=== PATIENT | male | born 1940 | race Caucasian/White ===

== ENCOUNTER 2016-06-06 10:05 | Inpatient (IN) | payer MEDICARE, OTHER ==
[~2016-06-06] VITALS: Ht 165.1 cm; Wt 83.9 kg
[~2016-06-06 10:05] MED LIST: AMLO-147 PO; APR50 PO; ASPI-664 PO; ATOR80TA75 PO; BUDE6HFA INHALATION; CARV6.2579 PO; CLOP75TA4 PO; DUTA0.5C PO; FAMO20TA18 PO; FURO40TA4 PO; ISOS60TA PO; NIT4 SL; TAMS-14 PO; TIOT18CA INHALATION
--- NOTE | 2016-06-06 10:37 | RADRPT ---
PROCEDURE: XR Chest. CLINICAL INDICATION: Shortness of breath. TECHNIQUE: Single frontal view. COMPARISON: 04/19/2016. FINDINGS: There is mild interstitial pulmonary disease consistent with pulmonary edema, slightly worse than se en previously. The lungs are otherwise clear. The heart is enlarged. There is a new small right pleural effusion. There is no left pleural effusion. There is no pneumothorax. IMPRESSION: 1. Worse pulmonary edema. 2. Cardiomegaly. 3. New small right pleural effusion. RPTAT: QQ .Mikey Leal MD, MD Date Time Electronically viewed and signed by .Mikey Leal MD, MD on 06/06/2016 10:37 .R/
[2016-06-06] MEDS ORDERED: ALBUTEROL 0.5% (NEB) 2.5 MG/0.5 ML AMP INH STA (10:40)
[2016-06-06] MEDS ORDERED: LORAZEPAM 2 MG INJ IV ONE (11:00)
[2016-06-06] MEDS ORDERED: NITROGLYCERIN (SL) 0.4 MG TAB SL ONE (11:00)
[2016-06-06 11:15] LABS: ALBUMIN 3.5 g/dl (3.3-4.9)
[2016-06-06 11:17] LABS: BASOPHIL # 0.1 10^3/ul (0.0-0.1); BASOPHILS % 0.6 % (0.0-2.0); HEMATOCRIT 39.6 % (42.0-52.0); HEMOGLOBIN 12.4 g/dl (14.0-18.0); LYMPHOCYTES # 1.3 10^3/ul (0.8-2.9); LYMPHOCYTES % 10.7 % (15.0-51.0); MEAN CORPUSCULAR HEMOGLOBIN 26.4 pg (29.0-33.0); MEAN CORPUSCULAR HGB CONC 31.4 g/dl (32.0-37.0); MEAN CORPUSCULAR VOLUME 84.1 fl (82.0-101.0); MEAN PLATELET VOLUME 10.6 fl (7.4-10.4); MONOCYTE # 1.2 10^3/ul (0.3-0.9); MONOCYTES % 9.9 % (0.0-11.0); NEUTROPHIL # 9.7 10^3/ul (1.6-7.5); NEUTROPHILS % 78.8 % (39.0-77.0); PLATELET COUNT 176 10^3/UL (140-440); RED BLOOD COUNT 4.71 10^6/ul (4.70-6.10); RED CELL DISTRIBUTION WIDTH 22.1 % (11.5-14.5); UNCORRECTED WBC 12.3 10^3/ul (4.8-10.8); WHITE BLOOD COUNT 12.3 10^3/ul (4.8-10.8)
[2016-06-06 11:18] LABS: BILIRUBIN,INDIRECT 1.3 mg/dl (0-1.1); BILIRUBIN,TOTAL 1.3 mg/dl (0.2-1.3); CREATININE 1.92 mg/dl (0.61-1.24); TOTAL PROTEIN 6.9 g/dl (6.1-8.1)
[2016-06-06 11:19] LABS: CALCIUM 9.1 mg/dl (8.4-10.2)
[2016-06-06 11:20] LABS: CONDITION 1; LH ANALYZER COMMENTS 1
[2016-06-06 11:26] LABS: ALBUMIN/GLOBULIN RATIO 1.02; POTASSIUM 6.2 mmol/L (3.5-5.1)
[2016-06-06] MEDS ORDERED: DEXTROSE 50% 50 ML SYRINGE IV STA (11:26)
[2016-06-06] MEDS ORDERED: FUROSEMIDE 40 MG INJ IV ONE (11:30)
[2016-06-06] MEDS ORDERED: INSULIN REGULAR, HUMAN 100 UNIT/1 ML 3ML VIAL IV ONE (11:30)
[2016-06-06] MEDS ORDERED: FURO-110 PO (11:32)
[2016-06-06] MEDS ORDERED: ISOS30TA5 PO (11:33)
[2016-06-06] MEDS ORDERED: METO50TA16 PO (11:34)
[2016-06-06 11:36] LABS: TROPONIN-I 1.93 ng/ml (0.00-0.12)
[2016-06-06] MEDS ORDERED: LIDO700A6 TP (11:40)
[2016-06-06] MEDS ORDERED: APIX2.5T PO (11:42)
[2016-06-06] MEDS ORDERED: ADV25050 INHALATION (11:42)
--- NOTE | 2016-06-06 11:47 | ERA ---
ER Documentation Chief Complaint Date/Time DATE: 06/06/16 TIME: 11:40 Chief Complaint sob starting 2 days; denies cp at this time; HPI 75-year-old man brought in by EMS from home for generalized discomfort and weakness beginning this morning. He does have a history of congestive heart failure although states he does not feel like he is decompensated at this time, he states he has been using his medications as prescribed and has avoided a high salt diet. He describes palpitations and generalized weakness, denies chest pain or shortness of breath, no fevers or chills, no cough, no recent calf or leg swelling. Patient was transported here by EMS without further complications. ROS All systems reviewed and are negative except as per history of present illness. Medications Home Meds Active Scripts Tamsulosin Hcl* (Flomax*) 0.4 Mg Cap.er.24h, 0.4 MG PO HS for 30 Days, CAP Prov:ELIJAH BALDWIN. 12/25/15 Reported Medications Apixaban* (Eliquis*) 2.5 Mg Tablet, 2.5 MG PO BID, TAB 06/06/16 Salmeterol Xinaf/Fluticasone* (Advair*) 250-50 Diskus Inhaler, 1 INH INHALATION BID, #1 INHALER 06/06/16 Lidocaine (Lidoderm) 1 Each Adh..patch, 1 EACH TP DAILY 06/06/16 Metoprolol Succinate* (Toprol XL*) 50 Mg Tab.er.24h, 50 MG PO BID, #30 TAB 06/06/16 Isosorbide Mononitrate* (Isosorbide Mononitrate*) 30 Mg Tab.er.24h, 30 MG PO DAILY, TAB 06/06/16 Furosemide* (Lasix*) 20 Mg Tablet, 20 MG PO DAILY, TAB 06/06/16 Budesonide-Formoterol Fumarate* (Symbicort*) 160-4.5 Hfa.aer.ad, 2 PUFF INHALATION BID, #1 EACH 04/04/16 Famotidine* (Famotidine*) 20 Mg Tablet, 20 MG PO DAILY, #30 TAB 04/04/16 Nitroglycerin* (Nitrostat*) 0.4 Mg Tab.subl, 0.4 MG SL Q5MIN Y for CHEST PAIN, BOTTLE 01/20/16 Dutasteride* (Avodart*) 0.5 Mg Capsule, 0.5 MG PO DAILY, CAP 01/20/16 Tiotropium Buckley* (Spiriva*) 18 Mcg Cap.w.dev, 1 CAP INHALATION DAILY, #30 CAP 01/19/16 Carvedilol* (Carvedilol*) 6.25 Mg Tablet, 6.25 MG PO BID, #60 TAB 01/19/16 Amlodipine Besylate* (Amlodipine Besylate*) 10 Mg Tablet, 10 MG PO DAILY, #30 TAB 01/19/16 Atorvastatin* (Atorvastatin*) 80 Mg Tablet, 80 MG PO QHS, #30 TAB 12/20/15 Clopidogrel Bisulfate* (Clopidogrel Bisulfate*) 75 Mg Tablet, 75 MG PO DAILY, # 30 TAB 12/20/15 Discontinued Reported Medications Hydralazine Hcl* (Hydralazine Hcl*) 50 Mg Tab, 50 MG PO QID, #120 TAB 01/19/16 Aspirin* (Aspirin* EC) 81 Mg Tablet.dr, 81 MG PO DAILY, TAB 12/20/15 Isosorbide Mononitrate* (Isosorbide Mononitrate*) 60 Mg Tab.er.24h, 60 MG PO DAILY, TAB 12/20/15 Furosemide* (Furosemide*) 40 Mg Tablet, 40 MG PO DAILY, TAB 12/20/15 Allergies Allergies: Coded Allergies: No Known Allergy (Unverified , 06/06/16) PMhx/Soc Congestive heart failure with an ejection fraction of 25%, history of stroke, paroxysmal atrial fibrillation, coronary artery disease post-PCI, chronic dysphagia, hypertension, congestive heart failure with multiple previous exacerbations, previous stroke, coronary artery disease, chronic renal insufficiency, BPH, chronic obstructive pulmonary disease, previous left bundle branch block on EKG History of Surgery: Yes (PCI w/ stenting, L shoulder sx) Anesthesia Reaction: No Hx Neurological Disorder: Yes (RT SIDED WEAKNESS STROKE 2016) Hx Respiratory Disorders: Yes (COPD) Hx Cardiac Disorders: Yes (CAD,CHF, CHRONIC A FIB) Hx Psychiatric Problems: No Hx Alcohol Use: No Hx Substance Use: No Hx Tobacco Use: No Smoking Status: Former smoker FmHx Family History: No diabetes Physical Exam Vitals Vital Signs Date Time Temp Pulse Resp B/P Pulse Ox O2 Delivery O2 Flow Rate FiO2 06/06/16 11:11 83 24 97 Nasal Cannula 4.0 06/06/16 11:11 4.0 06/06/16 10:30 Nasal Cannula 4 06/06/16 10:30 Nasal Cannula 4.0 06/06/16 10: 98.9 87 24 153/86 90 Physical Exam GENERAL: Well-developed, well-nourished, well-hydrated, in no apparent distress , looks nontoxic in appearance HEENT: Moist mucous membranes, pink conjunctiva, no cervical spine tenderness or step-off deformities, no goiter, no jaundice or icterus, extraocular movements intact without pain. No submandibular induration, and no pharyngeal erythema NEURO: Alert and oriented 3, cranial nerves II through XII intact bilaterally, pupils equal round reactive to light, no focal deficits or facial asymmetry, sensation intact distally Strength 5/5 in upper and lower extremities bilaterally CARDIAC: Bibasilar crackles no wheezing or stridor LUNGS: Clear bilaterally no wheezing crackles or stridor ABDOMEN: Soft nontender, no guarding, no rigidity, no rebound, no psoas sign no obturator sign. Normoactive bowel sounds SKIN: Warm and dry to touch, no abrasions, contusions, or hematomas, no lacerations, no ecchymosis, no target lesions, and without ulcers EXTREMITIES: No clubbing cyanosis or edema, calves are bilaterally symmetrical, no Homans sign, no popliteal cord sign. Distal pulses equal and bilateral PSYCH: Normal affect without agitation or irritability Result Diagram: 06/06/16 1030 06/06/16 1030 Results 24 hrs Laboratory Tests Test 06/06/16 10:30 Alanine Aminotransferase (ALT/SGPT) 92IU/L Albumin 3.5g/dl Albumin/Globulin Ratio 1.02 Alkaline Phosphatase 137IU/L Anion Gap 25 Aspartate Amino Transf (AST/SGOT) 88IU/L B-Type Natriuretic Peptide 86357IU/ML Basophils # 0.110^3/ul Basophils % 0.6% Blood Morphology Comment Blood Urea Nitrogen 67mg/dl Calcium Level 9.1mg/dl Carbon Dioxide Level 18mmol/L Chloride Level 101mmol/L Creatinine 1.92mg/dl Direct Bilirubin 0.00mg/dl Eosinophils # 0.010^3/ul Eosinophils % 0.0% Globulin 3.40g/dl Glucose Level 133mg/dl Hematocrit 39.6% Hemoglobin 12.4g/dl Indirect Bilirubin 1.3mg/dl Lipase 41U/L Lymphocytes # 1.310^3/ul Lymphocytes % 10.7% Mean Corpuscular Hemoglobin 26.4pg Mean Corpuscular Hemoglobin Concent 31.4g/dl Mean Corpuscular Volume 84.1fl Mean Platelet Volume 10.6fl Monocytes # 1.210^3/ul Monocytes % 9.9% Neutrophils # 9.710^3/ul Neutrophils % 78.8% Nucleated Red Blood Cells # 0.010^3/ul Nucleated Red Blood Cells % 0.0/100WBC Platelet Count 88392^3/UL Potassium Level 6.2mmol/L Red Blood Count 4.7110^6/ul Red Cell Distribution Width 22.1% Sodium Level 138mmol/L Total Bilirubin 1.3mg/dl Total Protein 6.9g/dl Troponin I 1.930ng/ml White Blood Count 12.310^3/ul Current Medications Medications (Trade) Dose Ordered Sig/Jong Route PRN Reason Start Time Stop Time Status Last Admin Dose Admin Albuterol (Proventil 0.5% (Neb)) 5 mg ONCE STAT INH 06/06/16 10:40 06/06/16 10:43 DC 06/06/16 11:00 Nitroglycerin (Nitroglycerin (Sl Tab) 0.4 Mg) 1 tab ONCE ONCE SL 06/06/16 11:00 06/06/16 11:01 DC Lorazepam (Ativan) 0.5 mg ONCE ONCE IV 06/06/16 11:00 06/06/16 11:01 DC 06/06/16 11:22 Furosemide (Lasix) 60 mg ONCE ONCE IV 06/06/16 11:30 06/06/16 11:31 DC 06/06/16 12:01 Dextrose (D50w Syringe) 50 ml NOW STAT IV 06/06/16 11:26 06/06/16 11:28 DC 06/06/16 12:02 Insulin Human Regular (Humulin R) 8 unit ONCE ONCE IV 06/06/16 11:30 06/06/16 11:31 DC 06/06/16 12:01 Procedures/[facility] IV line was established patient was placed on pot puller rhythm strip revealed a wide-complex rhythm at about 80 bpm. Patient was afebrile. Patient appeared tachypneic and dyspneic For shortness of breath I administered albuterol 5 mg via nebulizer and treated the patient with nitroglycerin 0.4 mg sublingual, and lorazepam 0.5 mg IV for anxiety with good effect. EKG performed, read by me revealed a normal sinus rhythm 84 bpm, normal axis, left bundle branch block with [address] depression in V6 concerning for acute ischemia. Patient has no complaints of chest pain and denies shortness of breath. One view chest x-ray performed, read by me revealed cardiomegaly and bilateral vascular congestion this may be slightly worse compared to previous x-ray although not much has changed. He has screws in the left proximal humerus no acute infiltrates noted. CBC was unremarkable, electrolytes revealed hyperkalemia 6.2 and worsening renal function with a BUN/creatinine of 67/1.9. I treated the patient with furosemide 60 mg IV and aspirin 325 mg p.o. for cardioprotective measures. For further treatment of hyperkalemia I treated him with dextrose 25 g IV and regular insulin 8 units IV. Troponin was positive at 1.9. BNP was also elevated at about 39,000 Critical Care: Time: 40 minutes, this was time separate from other procedures. Treatments/Evaluations: Close monitoring and treatment of unstable vital signs, cardiorespiratory, and neurologic status, while maintaining tight balance of fluid, respiratory, and cardiac interventions. Patient will be admitted to telemetry setting for continued medical management and cardiology consultation. Departure Diagnosis: Primary Impression: Acute hyperkalemia Additional Impressions: Non-STEMI (non-ST elevated myocardial infarction) Acute renal failure Qualified Code: N17.0 - Acute renal failure with tubular necrosis CHF (congestive heart failure) Qualified Code: I50.21 - Acute systolic congestive heart failure Condition: Serious CAREY NEUMANN MD Jun 06, 2016 11:47
[2016-06-06] MEDS ORDERED: ASPIRIN 300 MG SUPP PR ONE (12:00)
[2016-06-06] MEDS ORDERED: ASPIRIN 325 MG TAB PO ONE (12:00)
[2016-06-06 13:00] VITALS: PULSE 86
[2016-06-06 13:08] VITALS: BP 178/87; PULSE 85; RESP 22
[2016-06-06 13:25] VITALS: Ht 165.1 cm; Wt 83.9 kg
[2016-06-06] MEDS ORDERED: hydrALAzine 20 MG INJ IV PRN (13:30)
[2016-06-06] MEDS ORDERED: NA PHOSPHATE/BIPHOS 133 ML ENEMA PR PRN (13:30)
[2016-06-06] MEDS ORDERED: ALBUTEROL/IPRATROPIUM (NEB) 3 ML AMP HHN PRN (13:30)
[2016-06-06] MEDS ORDERED: ONDANSETRON 4 MG INJ IV PRN (13:30)
[2016-06-06] MEDS ORDERED: ACETAMINOPHEN 325 MG TAB PO PRN (13:30)
[2016-06-06] MEDS ORDERED: LORAZEPAM 2 MG INJ IV PRN (13:30)
[2016-06-06] MEDS ORDERED: MAGNESIUM HYDROXIDE 30ML CUP PO PRN (13:30)
[2016-06-06] MEDS ORDERED: NACL 0.9% 3 ML SYG IV SCH (13:30)
[2016-06-06] MEDS ORDERED: NA POLYST SULFON 15 GM/60 ML BTL PR ONE (13:30)
[2016-06-06] MEDS ORDERED: HYDROCODONE/APAP (5/325) TAB PO PRN (13:30)
[2016-06-06] MEDS ORDERED: DOCUSATE SODIUM 100 MG CAP PO PRN (13:30)
[2016-06-06] MEDS ORDERED: NITROGLYCERIN (SL) 0.4 MG TAB SL PRN (13:30)
[2016-06-06] MEDS ORDERED: morphine 2 MG INJ IV PRN (13:30)
[2016-06-06 14:48] LABS: INR 1.5; PROTIME 18.2 Sec (12.2-14.2); PT RATIO 1.4
[2016-06-06 14:49] LABS: PARTIAL THROMBOPLASTIN TIME 31.7 Sec (25.0-35.0)
[2016-06-06 15:03] LABS: CK-MB 6.06 ng/ml (0.0-2.4)
--- NOTE | 2016-06-06 15:23 | HP ---
DATE OF ADMISSION: 06/06/2016 CHIEF COMPLAINT: Palpitations and weakness. HISTORY OF PRESENT ILLNESS: A 75-year-old male with past medical history based on records of acute respiratory failure in the past, CHF, systolic and diastolic dysfunction, chronic kidney disease, pr ior V-tach, pulmonary hypertension, COPD, mild to moderate aortic stenosis, essential hypertension, iron deficiency anemia, BPH, dysphasia and deconditioning, noncompliance with medication from the ct st, AFib, prior stroke, coronary artery disease and low platelets. He was brought in today by patricio edics because of some complaints of palpitations, most of the information obtained from the ER docum entation. The patient is presently lethargic and unable to provide a full HPI or review of systems. Apparently he was also having some shortness of breath and the family became concerned and decide d to call EMS. When he came in today, he was found with elevated troponin of 1.9 and his potassium was also elevated at 6.2. He was given a DuoNeb treatment and Lasix treatment in the ER and also as pirin as well. The patient was last here at our hospital from 04/04/2016 to 04/15/2016 for respirat ory failure and CHF exacerbation at that time. He also spent about 12 days in rehabilitation from 06/16/2015 to 04/27/2016 for recovery. PAST MEDICAL HISTORY: As stated above. ALLERGIES: NO KNOWN DRUG ALLERGIES. HOME MEDICATIONS: 1. Based on the medical reconciliation list, he is on Flomax 0.4 mg at bedtime. 2. Spiriva 18 mcg inhaled daily. 3. Eliquis 2.5 mg b.i.d. 4. Plavix 75 mg daily. 5. Amlodipine 10 mg daily. 6. Atorvastatin 80 mg at bedtime. 7. Coreg 6.25 mg b.i.d. 8. Imdur 30 mg daily. 9. Toprol-XL 50 mg b.i.d. 10. Nitroglycerin sublingual every 5 minutes p.r.n. 11. Lasix 20 mg p.o. daily. 12. Symbicort 116/4.5 two puffs inhaled b.i.d. 13. Advair 250/50 inhaled b.i.d. 14. Famotidine 20 mg daily. 15. Lidoderm daily. 16. Avodart 0.5 mg daily. PAST SURGICAL HISTORY: Apparently he has had PCI with stenting in the past and left shoulder surger y in the past, based on records. FAMILY HISTORY: Positive for hypertension, heart disease. SOCIAL HISTORY: He has a history of smoking possibly still smoking cigarettes. No alcohol use or I V drug abuse. PHYSICAL EXAMINATION: VITAL SIGNS: T-max 98.9, pulse 83, respirations 20 to 24, blood pressure 143/86, saturating at 90% to 97% on 4 liters nasal cannula. GENERAL: The patient is lying in bed, somewhat altered, but otherwise no acute distress. HEENT: Pupils equal, round, react to light. Extraocular muscles intact. NECK: Supple, no thyromegaly. LUNGS: Mild crackles heard at the bases bilaterally. CARDIOVASCULAR: S1, S2 heard. No rubs or gallops. ABDOMEN: Soft, nontender, nondistended. Normal bowel sounds. No rebound or guarding. MUSCULOSKELETAL: No lower extremity edema bilaterally. NEUROLOGIC: No signs of any focal deficits. LABORATORIES: WBC 12.3, hemoglobin 12.4, hematocrit 39.6, platelets 176. Sodium 138, potassium 6.2 , chloride 101, CO2 18, BUN 67, creatinine 1.9, glucose 133. AST is a little high at 88, ALT is a l ittle high at 92, alkaline phosphatase is high at 137. First troponin is 1.93. BNP is 39,300. Lip ase is normal. IMAGING: There was a chest x-ray performed today that shows worsening pulmonary edema, cardiomegaly , new small right pleural effusion. ASSESSMENT AND PLAN: A 75-year-old male coming in with weakness, palpitations, shortness of breath with signs of hyperkalemia, renal insufficiency and elevated troponins and failure exacerbations. 1. Weakness, palpitations. Again, secondary most likely to congestive heart failure with possible non ST segment elevation myocardial infarction component, so again we will admit him to telemetry fl oor. We will trend his troponins. He is on aspirin and Plavix now as well as Eliquis. We will get a cardiology consult. We will put him on IV Lasix, keep the head of the bed greater than 30 degree s. Monitor ins and outs. We will treat her CHF exacerbation as well. It is unclear if his troponi n elevation is due to troponin leak from his renal insufficiency or from actual non-ST segment eleva tion myocardial infarction, so in any event, we are going to him out. He is going to be on aspirin, morphine, oxygen, and nitrates as well. Continue beta kehinde for now. He is also on hydralazine p.r.n. Continue higher dose cholesterol and check a TSH, A1c and lipid panel as well. 2. Congestive heart failure exacerbation. Again, he is going to be on Lasix and monitor ins and ou ts and low-dose beta kehinde. Get cardiology consult. Consider checking an echocardiogram again 3. Rxyrp-he-houhedv renal insufficiency, baseline creatinine appears to be about 1.5, today is 1.9. He also has an elevated potassium. We will get a renal consult. He is going to be on Lasix as we ll. 4. Hyperkalemia. Again, there were no significant EKG changes other than the left bundle branch bl ock, no peaked T waves. I am going to rule out for acute coronary syndrome and consider Kayexalate as well. Again, he is going to be on Lasix. 5. Atrial fibrillation. Going to continue Eliquis. 6. History of prior stroke. He is on aspirin and Plavix. Continue that. 7. Coronary artery disease. Again, he is on aspirin and Plavix. Continue. 8. Pulmonary hypertension. Continue to monitor for now. He is on DuoNeb p.r.n. Continue current cardiac medicines. 9. History of aortic stenosis, again will get echocardiogram. Follow up cardiology recommendations as well. 10. Prostate issues. Hold Flomax for now. 11. Lethargy unclear. He has had a history of encephalopathy in the past. Consider head CT, hold his Lidoderm patch as well. Be cautious with his pain control medications. 12. Gastrointestinal prophylaxis, H2 kehinde. 13. Deep venous thrombosis prophylaxis. He is on Eliquis for his atrial fibrillation. Will get PT , OT consults as well and speech therapy consult. Dictated By: DENTON HU Conf#: [id number] DID#: [id number]
[2016-06-06 15:26] LABS: TROPONIN-I 1.71 ng/ml (0.00-0.12)
[2016-06-06 16:06] VITALS: PULSE 81
[2016-06-06 16:13] VITALS: BP 165/45; RESP 18
--- NOTE | 2016-06-06 18:53 | CONS ---
DATE OF ADMISSION: 06/06/2016 DATE OF CONSULTATION: 06/06/2016 TYPE OF CONSULTATION: Cardiology. REFERRING PHYSICIAN: Dr. Denton Field REASON FOR CONSULTATION: Abnormal troponin. CHIEF COMPLAINT: Shortness of breath, chest pain. HISTORY OF PRESENT ILLNESS: ____ from the patient, discussion with his son, discussion with the sta ff. ____ reveals the old ____. The patient ____ was admitted to the hospitalist. A 75-year-old ge ntleman with multiple complicated medical history who has had increasing shortness of breath and cam e to emergency room. The patient also ____ chest pain anteriorly 3 days ago. In the emergency room , was noted to have severe hyperkalemia, potassium of 6.2. His troponin was also 1.93. His chest p ain has resolved at this point. Shortness of breath is stable at his baseline now. PAST MEDICAL HISTORY: History of coronary artery disease, status post multiple MIs, status multiple PCI of right coronary artery, history of paroxysmal atrial fibrillation, history of CVA, history of severe ischemic cardiomyopathy, history of aortic stenosis, history of COPD, history of renal insuf ficiency and possible renal artery stenosis, history of multiple myocardial infarctions, history of dyslipidemia, history of diabetes. SURGICAL HISTORY: Multiple PCI. FAMILY HISTORY: Positive for hypertension. SOCIAL HISTORY: The patient has been a chronic smoker for many years. He continues to smoke interm ittently. ALLERGIES: NO KNOWN DRUG ALLERGIES. MEDICATIONS: As per medication reconciliation, personally reviewed. PHYSICAL EXAMINATION: VITAL SIGNS: Temperature 97.8, heart rate of 85, blood pressure 178/87, respiratory rate of 85. HEENT: Normocephalic, atraumatic. Thin, cachectic gentleman. Pupils are equal. CARDIOVASCULAR: Regular rate and rhythm. Systolic ejection murmur. PULMONARY: With mild rhonchi, diffuse. GASTROINTESTINAL: Soft, nontender. EXTREMITIES: With no significant lower extremity edema. NEUROLOGIC: Awake and alert, responds appropriately. PSYCHIATRIC: Appears to be calm. LABORATORY: WBC of 12.3, hemoglobin 12.4, platelet 176. Sodium 138, potassium 6.2, BUN of 67, crea tinine 1.92, glucose 133. Troponin of 1.9. Total CK of 95 with MB fraction of 6. ProBNP of 39,300 . EKG was personally reviewed, showed normal sinus rhythm with left bundle branch block. Chest x-ray was personally reviewed, which shows worsening pulmonary edema, new small right pleural effusion. ASSESSMENT AND PLAN: 1. Jmz-SA-dyyebflsq myocardial infarction. 2. Acute renal failure on chronic kidney disease. 3. Hyperkalemia, rule out obstruction. 4. History of coronary artery disease, status multiple myocardial infarctions in the past. 5. History of multiple percutaneous coronary interventions. 6. Dyslipidemia. 7. Hypertension. 8. Diabetes. 9. Chronic obstructive pulmonary disease. 10. History of benign prostatic hypertrophy. 11. History of cerebrovascular accident. 12. History of paroxysmal atrial fibrillation. RECOMMENDATIONS: Currently, patient is in sinus. I would discontinue the Eliquis. We will continu e with aspirin and Plavix for now. I will continue the patient on Coreg. No JOSE MARIA inhibitor will be given, given his renal failure. Place a Zuniga catheter for I's and O's to evaluate for obstruction. I have asked the nurses to contact Dr. Ojeda, who has known the patient very well and previously treated him. Dr. Kc and staff ____ will be contacted ____ nephrology to evaluate the patient. For now, we will optimize him and will decide further ischemic workup once his renal function impr oves. Thank you for this referral. We will continue to follow along with you. Dictated By: LUCÍA MARQUES/SANCHEZ Conf#: [id number] DID#: [id number] CC: DENTON FIELD;*Kameron*
--- NOTE | 2016-06-06 19:00 | CONS ---
DATE OF ADMISSION: 06/06/2016 DATE OF CONSULTATION: 06/06/2016 REFERRING PHYSICIAN: Dr. Jan Ceja TYPE OF CONSULTATION: Nephrology. REASON FOR CONSULTATION: Acute versus acute on chronic renal failure secondary to cardiorenal syndr ome. HISTORY OF PRESENT ILLNESS: This is a 75-year-old male with a past medical history of CAD, CHF, chr onic atrial fibrillation, COPD, BPH, history of previous stent placement for coronary artery disease . The patient was last admitted in April 2016 for CHF exacerbation and at that time, he had acut e on chronic renal failure. The patient had a creatinine up to 2.62 which improved with IV Lasix di uresis to 1.1 at the time of the discharge. He discharged home and he was subsequently seen in the emergency room and had a creatinine bump up to 1.2. Today he presented with a complaint of shortness of breath, chest pain. He gets admitted for CHF exacerbation. He already received IV Lasix in the emergency room. He came in with a creatinine of 1.9. His potassium was 6.2. Patient has already been treated for hyperkalemia in the emergency room and he gets admitted to the telemetry floor for further workup. REVIEW OF SYSTEMS: Positive for chest pain, shortness of breath. Other 12-point review of systems has been obtained and is negative except what is mentioned in the history of present illness. PAST MEDICAL HISTORY: Notable for hypertension, hyperlipidemia, history of coronary artery disease, status post previous stent placement, history of systolic and diastolic heart failure, BPH. PAST SURGICAL HISTORY: History of a previous stent placement, history of left shoulder surgery. SOCIAL HISTORY: No smoking, alcohol or recreational drug use. PHYSICAL EXAMINATION: VITAL SIGNS: Temperature 97.5, heart rate 73, respiration 20, blood pressure 178/87, saturation is 100% on 2 liters nasal cannula. GENERAL: Awake, in moderate distress due to shortness of breath. HEENT: Normal. NECK: Jugular venous distention up to the neck and jaw. LUNGS: Bibasilar crackles up to the mid lung zone. HEART: S1, S2, tachycardia. No murmur. ABDOMEN: Soft, nontender, nondistended. EXTREMITIES: 1 to 2+ pitting edema. NEUROLOGICAL: Nonfocal, intact. PSYCHIATRIC: Appropriate affect and mood. LABORATORY DATA/DIAGNOSTIC IMAGING: WBC 12.3, hemoglobin 12.4, platelet count 176. Sodium 138, potassium 6.2, chloride 101, bicarbonate 18, BUN 67, creatinine 1.9, glucose 133, calcium 9.1, total bilirubin 1.3. LFTs are slightly eleva inder. Troponin 1.930, BNP 39,300. PT 18.2, PTT 31.7, INR 1.5. Chest x-ray shows worsening congestive heart failure with cardiomegaly. IMPRESSION: This is a 75-year-old male with: 1. Nonoliguric acute kidney injury on top of chronic kidney disease stage III secondary to a possib le cardiorenal syndrome and hemodynamics. 2. History of chronic kidney disease stage III secondary to cardiorenal syndrome and hypertensive n ephrosclerosis. 3. History of hypertension. 4. History of coronary artery disease, status post previous stent placement. 5. Acute systolic and diastolic heart failure, decompensated. 6. Hyperlipidemia. 7. History of former smoking. 8. History of chronic obstructive pulmonary disease. PLAN: Thank you, Dr. Ceja, for this consultation. 1. The patient already received Lasix 60 mg IV x1 in the emergency room and he is ordered to have L asix 40 mg IV daily. I will continue the current dose of Lasix. Avoid any JOSE MARIA inhibitors or ARB at this point due to the rise in creatinine. 2. Continue the other cardiac medications of heparin for DVT prophylaxis. Patient is currently see n in the telemetry floor and he will be followed up along with his course in the hospital. The patie nt had a previous kidney ultrasound done in March 2016, which revealed small size kidney around 9 .4 to 9.6 cm. No hydronephrosis and an enlarged prostate. The patient has possible chronic kidney d isease stage III due to his other medical problems and cardiorenal syndrome. Once again, thank you, Dr. Ceja, for this consultation. I will continue to follow this patient shanthi g with cardiology service. Dictated By: MJ SALINAS MD, KP/SANCHEZ Conf#: [id number] DID#: [id number]
[2016-06-06 19:29] LABS: CK-MB 6.56 ng/ml (0.0-2.4); TROPONIN-I 1.78 ng/ml (0.00-0.12)
[2016-06-06 20:00] VITALS: BP 137/93
[2016-06-06 20:10] VITALS: PULSE 85
[2016-06-06] MEDS: SALMETEROL/FLUTICASONE 250/50 INHA INH SCH (20:50)
[2016-06-06] MEDS: ATORVASTATIN 80 MG TAB PO SCH (20:51)
[2016-06-06] MEDS ORDERED: METOPROLOL (XL) 50 MG TAB PO SCH (21:00)
[2016-06-06] MEDS ORDERED: APIXABAN 5 MG TABLET PO SCH (21:00)
[2016-06-06] MEDS ORDERED: HEPARIN 5,000 UNIT/0.5 ML SYG SC SCH (21:00)
[2016-06-06] MEDS ORDERED: NON-FORMULARY/PATIENT OWN MED (Budesonide-Formoterol Fumarate* (Symbicort*) 2 PUFF) INHALATION SCH (21:00)
[2016-06-07] VITALS (13 sets, daily range): BP systolic 121–148; BP diastolic 60–77; PULSE 62–71; RESP 19–20
[2016-06-07 04:16] LABS: ADD UMIC YES; URINE BILIRUBIN (Dip) NEGATIVE (NEGATIVE); URINE BLOOD (Dip) NEGATIVE (NEGATIVE); URINE COLOR LT. YELLOW (YELLOW); URINE GLUCOSE (Dip) NEGATIVE (NEGATIVE); URINE KETONES (Dip) NEGATIVE (NEGATIVE); URINE LEUKOCYTE ESTERASE (Dip) 2+ (NEGATIVE); URINE NITRITE (Dip) NEGATIVE (NEGATIVE); URINE TOTAL PROTEIN (Dip) NEGATIVE (NEGATIVE); URINE UROBILINOGEN (Dip) 0.2 E.U./dL (0.1-1.0)
[2016-06-07 04:41] LABS: SQUAMOUS EPITHELIAL CELL,UR MODERATE; URINE RBCS 0-2 /HPF (0)
[2016-06-07 04:42] LABS: BACTERIA,URINE MODERATE; MUCUS,URINE FEW
[2016-06-07 08:01] LABS: INR 1.53; PROTIME 18.5 Sec (12.2-14.2); PT RATIO 1.4
[2016-06-07 08:02] LABS: CHOL/HDL RATIO 7.6 RATIO; MAGNESIUM 2.2 mg/dl (1.7-2.5); PHOSPHORUS 6.7 mg/dl (2.5-4.9)
[2016-06-07 08:07] LABS: ALBUMIN 2.9 g/dl (3.3-4.9)
[2016-06-07 08:11] LABS: ALBUMIN/GLOBULIN RATIO 0.93; BILIRUBIN,INDIRECT 1.1 mg/dl (0-1.1); BILIRUBIN,TOTAL 1.1 mg/dl (0.2-1.3); CALCIUM 8.8 mg/dl (8.4-10.2); CREATININE 1.96 mg/dl (0.61-1.24)
[2016-06-07 08:23] LABS: THYROID STIMULATING HORMONE 2.16 MIU/L (0.465-4.680)
[2016-06-07 08:30] LABS: HEMATOCRIT 35.5 % (42.0-52.0); HEMOGLOBIN 11.4 g/dl (14.0-18.0); LYMPHOCYTES # 0.8 10^3/ul (0.8-2.9); LYMPHOCYTES % 5.2 % (15.0-51.0); MEAN CORPUSCULAR HEMOGLOBIN 26.6 pg (29.0-33.0); MEAN CORPUSCULAR HGB CONC 32.2 g/dl (32.0-37.0); MEAN CORPUSCULAR VOLUME 82.5 fl (82.0-101.0); MEAN PLATELET VOLUME 10.5 fl (7.4-10.4); MONOCYTE # 1.1 10^3/ul (0.3-0.9); MONOCYTES % 7.3 % (0.0-11.0); NEUTROPHIL # 13.7 10^3/ul (1.6-7.5); NEUTROPHILS % 87.5 % (39.0-77.0); PLATELET COUNT 146 10^3/UL (140-440); RED CELL DISTRIBUTION WIDTH 21.8 % (11.5-14.5); UNCORRECTED WBC 15.6 10^3/ul (4.8-10.8); WHITE BLOOD COUNT 15.6 10^3/ul (4.8-10.8)
[2016-06-07 08:33] LABS: CONDITION 1; LH ANALYZER COMMENTS 1
[2016-06-07] MEDS ORDERED: ASPIRIN (EC) 325 MG TAB PO SCH (09:00)
[2016-06-07] MEDS ORDERED: FUROSEMIDE 40 MG INJ IV SCH (09:00)
[2016-06-07] MEDS ORDERED: AMLODIPINE 10 MG TAB PO SCH (09:00)
[2016-06-07] MEDS: SALMETEROL/FLUTICASONE 250/50 INHA INH SCH ×2 (09:18→21:52)
[2016-06-07] MEDS: ISOSORBIDE MONONITRATE(SR)30 MG TAB PO SCH (09:19)
[2016-06-07] MEDS: CLOPIDOGREL 75 MG TAB PO SCH (09:19)
[2016-06-07] MEDS: FAMOTIDINE 20 MG TAB PO SCH (09:19)
[2016-06-07] MEDS: DUTASTERIDE 0.5 MG CAP PO SCH (09:19)
[2016-06-07 09:22] LABS: CK-MB 4.84 ng/ml (0.0-2.4); TROPONIN-I 1.46 ng/ml (0.00-0.12)
--- NOTE | 2016-06-07 11:01 | PN ---
DATE: 06/07/2016 SUBJECTIVE: The patient is stable, but still has mild tachypnea. No other acute events noted. No hemoptysis, hematemesis. OBJECTIVE: VITAL SIGNS: Blood pressure is 140/77, respiratory rate 20, pulse 76, temperature 98.0. I'S AND O'S: The patient had ____, 1400 out. HEENT: Head is normocephalic. NECK: Supple. HEART: Regular rate. LUNGS: Show diminished breath sounds at the base. ABDOMEN: Soft, nontender to palpation. No rebound or guarding. EXTREMITIES: Negative for clubbing, cyanosis, +1 edema. DERMATOLOGIC: No rashes. MUSCULOSKELETAL: No joint effusions. NEUROLOGIC: No change in exam. MEDICATIONS: The patient's medications have been reviewed. LABORATORY DATA: Shows white count 15.6, hemoglobin 11.4, hematocrit 33.5, platelet count 146. Sod ium 138, potassium 5.0, chloride 101, BUN is 71, creatinine 1.96, phosphorus 6.7. IMAGING STUDIES: The patient's urinalysis shows FENa greater than 1% with moderate WBC clumps. Mohini taylor's culture is pending. ASSESSMENT AND PLAN: 1. Nonoliguric acute kidney injury on top of chronic kidney disease stage IIIB/IV with a previous b aseline creatinine around 1.5 mg/dL. Etiology of acute kidney injury is likely secondary to cardior enal syndrome with possible tubular injury. The patient's urinalysis shows evidence of pyuria, bact eria and squamous epithelial cast. Which can be seen in urinary tract infection or in a tubular int erstitial process. The patient is; however, in decompensated heart failure with pulmonary edema and lower extremity edema. Plan at this point is to continue current treatment plan. Continue diureti c therapy, continue Lasix 20 mg daily. We will intensify Lasix to b.i.d. We will otherwise continu e supportive care, renally dose all meds, avoid nephrotoxins. Follow up with cardiology for further recommendations. 2. Hyperkalemia. Etiology is secondary to acute kidney injury. The patient's potassium levels hav e normalized. The patient will be placed on a low potassium diet once tolerating p.o. 3. Anemia of chronic disease. Continue to monitor hemoglobin and hematocrit levels. 4. Mineral bone disorder. The patient is hypophosphatemic secondary to acute kidney injury and chr onic kidney disease. We will continue to monitor. The patient will be started on phos binders once tolerating p.o. 5. Chronic kidney disease stage III. Etiology is secondary to hypertension, nephrosclerosis, and c ardiorenal syndrome. Currently the patient's acute kidney injury as stated above, we will continue current treatment plan. 6. Acute systolic, diastolic heart failure. Continue current treatment plan. Continue diuretic th erapy as stated above. Continue medical management. Follow up with Cardiology. 7. Non-ST elevation myocardial infarction. Continue current treatment plan. 8. History of chronic obstructive pulmonary disease. Continue medical management. 9. History of benign prostatic hypertrophy with urinary retention. The patient is status post Fole y catheter placement. 10. Hypertension. Continue current blood pressure regimen. 11. Diabetes, continue Accu-Cheks and sliding scale. 12. Pulmonary hypertension. Continue current medical management. Dictated By: JOÃO ROBISON/SANCHEZ Conf#: [id number] DID#: [id number]
--- NOTE | 2016-06-07 13:36 | PN ---
Date/Time of Note Date/Time of Note DATE: 06/07/16 TIME: 13:24 Assessment/Plan VTE Prophylaxis VTE Prophylaxis Intervention: other (eliquis) Lines/Catheters IV Catheter Type (from [facility]): Saline Lock Urinary Cath still in place: Yes Reason Cath still needed: urinary retention Assessment/Plan Assessment/Plan 1. Pneumonia, zosyn to cover aspiration 2. Urinary tract infection, on zosyn 2. Congestive heart failure exacerbation. systolic, acute on chronic,diuretics 3. Bzvwi-ad-wqpyyyt renal insufficiency, follow up with BMP 4. Hyperkalemia. Renal failure related, resolved. 5. Atrial fibrillation. continue Eliquis. 6. History of prior stroke. He is on aspirin and Plavix. Continue that. 7. Coronary artery disease. Again, he is on aspirin and Plavix. Continue. 8. Pulmonary hypertension. Continue to monitor for now. He is on DuoNeb p.r.n. Continue current cardiac medicines. 9. History of aortic stenosis, again will get echocardiogram. Follow up cardiology recommendations as well. 10. Prostate issues. on Flomax 11. Lethargy unclear. He has had a history of encephalopathy in the past. Consider head CT, hold his Lidoderm patch as well. Be cautious with his pain control medications. 12. Gastrointestinal prophylaxis, H2 kehinde. 13. Deep venous thrombosis prophylaxis. He is on Eliquis for his atrial fibrillation. Will get PT, OT consults as well and speech therapy consult. Subjective 24 Hr Interval Summary Free Text/Dictation cough with yellowish sputum, shortness of breath Exam/Review of Systems Vital Signs Vitals Vital Signs Date Time Temp Pulse Resp B/P Pulse Ox O2 Delivery O2 Flow Rate FiO2 06/07/16 12:20 64 06/07/16 11:38 98.1 20 135/71 98 06/07/16 07:37 Nasal Cannula 2.0 Intake and Output 06/06/16 06/06/16 06/07/16 15:00 23:00 07:00 Intake Total 50 ml Output Total 1400 ml Balance -1350 ml Exam Constitutional: alert, oriented, well developed Psych: nl mood/affect, no complaints Head: atraumatic, normocephalic Eyes: EOMI, PERRL, nl conjunctiva, nl lids, nl sclera ENMT: nl external ears & nose, nl lips & teeth Neck: non-tender, supple Respiratory: other (right side crackles) Cardiovascular: No S3, No S4, No bruits, No diastolic murmur, No edema, No gallop, No irregular rhythm, No jugular venous distention (JVD), No murmurs/ extra sounds, No nl pulses, No rub, No systolic murmur Gastrointestinal: nl liver, spleen, non-tender, soft, No ascites, No bowel sounds, No distended, No firm, No hepatomegaly, No mass , No rebound or guarding, No splenomegaly, No surgical scars, No tender Musculoskeletal: nl extremities to inspection Extremities: normal pulses Neurological: 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, nl mental status, nl speech, nl strength Skin: nl turgor, rash or lesions Lymph: nl lymph nodes Results Result Diagram: 06/07/1662406/07/16 0625 Results 24 hrs Laboratory Tests Test 06/06/16 14:20 06/06/16 18:35 06/06/16 22:00 06/06/16 22:22 Activated Partial Thromboplast Time 31.7 Creatine Kinase 95 79 Creatine Kinase Index 6.4 8.3 Creatinine Kinase MB (Mass) 6.06 H 6.56 H Free Thyroxine 1.24 INR International Normalized Ratio 1.50 Prothrombin Time 18.2 H Prothrombin Time Ratio 1.4 Troponin I 1.710 *H 1.780 *H Urine Bacteria MODERATE Urine Bilirubin NEGATIVE Urine Clarity SL HAZY Urine Color LT. YELLOW Urine Glucose NEGATIVE Urine Hemoglobin NEGATIVE Urine Ketones NEGATIVE Urine Leukocyte Esterase 2+ H Urine Microscopic RBC 0-2 Urine Microscopic WBC 25-50 Urine Mucus FEW Urine Nitrite NEGATIVE Urine Specific [place] 1.010 Urine Squamous Epithelial Cells MODERATE Urine Total Protein NEGATIVE Urine Urobilinogen 0.2 E.U./dL Urine WBC Clumps MODERATE Urine Yeast MODERATE Urine pH 5.0 Urine Random Creatinine 31.97 Urine Random Sodium 98 H Test 06/07/16 06:25 Alanine Aminotransferase (ALT/SGPT) 90 H Albumin 2.9 L Albumin/Globulin Ratio 0.93 Alkaline Phosphatase 115 Anion Gap 19 H Aspartate Amino Transf (AST/SGOT) 65 H B-Type Natriuretic Peptide 27593 H Basophils # 0.0 Basophils % 0.0 Blood Morphology Comment Blood Urea Nitrogen 71 H Calcium Level 8.8 Carbon Dioxide Level 23 Chloride Level 101 Cholesterol Level 130 Cholesterol/HDL Ratio 7.6 Creatine Kinase 50 Creatine Kinase Index 9.7 Creatinine 1.96 H Creatinine Kinase MB (Mass) 4.84 H Digoxin Level < 0.4 L Direct Bilirubin 0.00 Eosinophils # 0.0 Eosinophils % 0.0 Free Thyroxine 1.35 Globulin 3.10 Glucose Level 75 # HDL Cholesterol 17 L Hematocrit 35.5 L Hemoglobin 11.4 L Hemoglobin A1c 5.9 INR International Normalized Ratio 1.53 Indirect Bilirubin 1.1 LDL Cholesterol, Calculated 93 Lymphocytes # 0.8 Lymphocytes % 5.2 L Magnesium Level 2.2 Mean Corpuscular Hemoglobin 26.6 L Mean Corpuscular Hemoglobin Concent 32.2 Mean Corpuscular Volume 82.5 Mean Platelet Volume 10.5 H Monocytes # 1.1 H Monocytes % 7.3 Neutrophils # 13.7 H Neutrophils % 87.5 H Nucleated Red Blood Cells # 0.0 Nucleated Red Blood Cells % 0.0 Phosphorus Level 6.7 H Platelet Count 146 Potassium Level 5.0 Prothrombin Time 18.5 H Prothrombin Time Ratio 1.4 Red Blood Count 4.30 L Red Cell Distribution Width 21.8 H Sodium Level 138 Thyroid Stimulating Hormone (TSH) 2.160 Total Bilirubin 1.1 Total Protein 6.0 L Triglycerides Level 98 Troponin I 1.460 *H Uric Acid 11.2 H White Blood Count 15.6 #H Medications Medications Current Medications Ondansetron HCl (Zofran Inj) 4 mg Q6H PRN IV NAUSEA AND/OR VOMITING; Start at 13:30 Acetaminophen (Tylenol Tab) 650 mg Q6H PRN PO PAIN LEVEL 1-3 OR FEVER; Start at 13:30 Acetaminophen/ Hydrocodone Bitart ([place] (5/325)) 1 tab Q6H PRN PO MODERATE PAIN LEVEL 4-6; Start 06/06/16 at 13:30 Morphine Sulfate (morphine) 2 mg Q4H PRN IV SEVERE PAIN LEVEL 7-10; Start 06/06 at 13:30 Docusate Sodium (Colace) 100 mg Q12H PRN PO CONSTIPATION; Start 06/06/16 at 13: 30 Magnesium Hydroxide (Milk Of Mag) 30 ml DAILY PRN PO CONSTIPATION; Start at 13:30 Sodium Biphosphate/ Sodium Phosphate (Fleet Enema) 133 ml DAILY PRN DE CONSTIPATION; Start 06/06/16 at 13:30 Lorazepam (Ativan) 0.5 mg Q6H PRN IV ANXIETY; Start 06/06/16 at 13:30 Hydralazine HCl (Apresoline) 10 mg Q6H PRN IV ELEVATED BLOOD PRESSURE; Start at 13:30 Clonidine (Catapres) 0.1 mg Q6H PRN PO ELEVATED BLOOD PRESSURE; Start 06/06/16 at 13:30 Nitroglycerin (Nitroglycerin (Sl Tab) 0.4 Mg) 1 tab Q5M PRN SL ANGINA; Start at 13:30 Aspirin (Ecotrin) 325 mg DAILY PO Last administered on 06/07/16 09:18; Admin Dose 325 MG; Start 06/07/16 at 09:00 Atorvastatin Calcium (Lipitor) 80 mg QHS PO Last administered on 06/06/16 20: 51; Admin Dose 80 MG; Start 06/06/16 at 21:00 Clopidogrel Bisulfate (plaVIX) 75 mg DAILY PO Last administered on 06/07/16 09 :19; Admin Dose 75 MG; Start 06/07/16 at 09:00 Dutasteride (Avodart) 0.5 mg DAILY PO Last administered on 06/07/16 09:19; Admin Dose 0.5 MG; Start 06/07/16 at 09:00 Famotidine (Pepcid) 20 mg DAILY PO Last administered on 06/07/16 09:19; Admin Dose 20 MG; Start 06/07/16 at 09:00 Isosorbide Mononitrate (Imdur) 30 mg DAILY PO Last administered on 06/07/16 09 :19; Admin Dose 30 MG; Start 06/07/16 at 09:00 Salmeterol Xinafoate/ Fluticasone (Advair 250/50 Diskus) 1 inh BID INH Last administered on 06/07/16 09:18; Admin Dose 1 INH; Start 06/06/16 at 21:00 Furosemide (Lasix) 40 mg DAILY IV Last administered on 06/07/16 09:19; Admin Dose 40 MG; Start 06/07/16 at 09:00 Carvedilol (Coreg) 6.25 mg BID PO Last administered on 06/07/16 09:19; Admin Dose 6.25 MG; Start 06/06/16 at 21:00 MAXIMILIANO MCGRAW MD Jun 07, 2016 13:34
[2016-06-07] MEDS: PIPER-TAZO 2.25 GM (PMX) 50 ML IVPB SCH ×2 (14:29→21:52)
--- NOTE | 2016-06-07 16:25 | RADRPT ---
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 Physician: DENTON FIELD Quality: Good Procedures: Transthoracic echocardiogram with complete 2D, M-Mode, and Doppler examination. Indications: NSTEMI. 2D/M Mode Doppler Measurement Value Normal Ranges Measurement Value Normal Ranges AoR Diam MM 2.9 cm JUSTIN Vmax 0.9 cm2 LVIDd 2D 5.5 3.5 - 5.6 cm JUSTIN VTI 0.9 cm2 LVIDs 2D 5.1 2.1 - 4.1 cm AV Mean Amilcar 1.5 m/sec LVPWd 2D 1.1 0.6 - 1.1 cm AV Mean PG 10.1 mmHg IVSd 2D 1.7 0.6 - 1.1 cm AV Peak Amilcar 2.2 m/sec EDV 2D 148.1 cm3 AV Peak PG 19.7 mmHg ESV 2D 129.9 cm3 AV VTI 35.4 cm LA Dimen 2D 4.4 2.3 - 4.0 cm AI Peak PG 60.7 mmHg LVOT Diam 2.0 cm AI Peak Amilcar 3.9 m/sec AI PHT 378.4 msec LVOT Mean Amilcar 0.4 m/sec LVOT Mean PG 0.8 mmHg LVOT Peak Amilcar 0.6 m/sec LVOT Peak PG 1.5 mmHg LVOT VTI 10.5 cm MV E Peak Amilcar 1.1 m/sec MV A Peak Amilcar 1.2 m/sec MV E/A 0.9 MV Decel Time 115 msec MV Decel [place] 9 MV E/A 0.9 TR Peak Amilcar 4.0 m/sec TR Peak PG 63.1 mmHg PV Peak Amilcar 0.7 m/sec PV Peak PG 2.0 mmHg RVSP 83.1 mmHg Findings Left Ventricle: Normal left ventricular cavity size. Mild asymmetric septal hypertrophy. Severe left ventricular systolic dysfunction. Ejection fraction is visually estimated at 1015 %. Tissue Doppler/Mitral Doppler indices are consistent with restrictive physiology with markedly elevated left atrial pressure (Stage IIIIV diastolic dysfunction). E/E`=16. Right Ventricle: Normal right ventricular size. Mild right ventricular hypokinesis. Left Atrium: There is severe enlargement of left atrium. LA Volume Index=55. Right Atrium: There is severe enlargement of right atrium, RA volume 113 ml. Atrial Septum: Normal atrial septum. Mitral Valve: Mild mitral annular calcification. Moderate to severe mitral valve regurgitation. Aortic Valve: Appears to be at least moderate aortic stenosis. Aortic valve Max velocity 2.20 m/sec. Max PG 20.00 mmHg. Mean PG 10.00 mmHg. Aortic valve area 1.00 cm2. Aortic cusps appear moderately calcified. Moderate aortic valve regurgitation. Tricuspid Valve: Normal appearance of the tricuspid valve. Estimated peak PA systolic pressure 83 mmHg. There is moderate to severe tricuspid regurgitation. Pulmonic Valve: Normal pulmonic valve appearance. There is trace pulmonic regurgitation. Pericardium: Normal pericardium with no significant pericardial effusion. Aorta: Normal aortic root. IVC: Dilated IVC without respiratory collapse consistent with elevated right atrial pressure. Pulmonary Artery: Normal pulmonary artery size. Conclusions 1.Normal left ventricular cavity size. Mild asymmetric septal hypertrophy. Severe left ventricular systolic dysfunction. Ejection fraction is visually estimated at 10-15 %. Tissue Doppler/Mitral Doppler indices are consistent with restrictive physiology with markedly elevated left atrial pressure (Stage III-IV diastolic dysfunction). E/E`=16. 2.There is severe enlargement of left atrium. LA Volume Index=55. 3.There is severe enlargement of right atrium, RA volume 113 ml. 4.Mild mitral annular calcification. Moderate to severe mitral valve regurgitation. 5.Appears to be at least moderate aortic stenosis. Aortic valve Max velocity 2.20 m/sec. Max PG 20.00 mmHg. Mean PG 10.00 mmHg. Aortic valve area 1.00 cm2. Aortic cusps appear moderately calcified. Moderate aortic valve regurgitation. 6.Normal appearance of the tricuspid valve. Estimated peak PA systolic pressure 83 mmHg. There is moderate to severe tricuspid regurgitation. 7.Dilated IVC without respiratory collapse consistent with elevated right atrial pressure. Electronically Signed By: Lius Vaughn 07-Jun-2016 16:24:40 -0800 Patient Name: ZANE TAMAYO Study Date: 06-Jun-2016 [id number]
[2016-06-07] MEDS: ATORVASTATIN 80 MG TAB PO SCH (21:52)
[2016-06-07] MEDS: APIXABAN 5 MG TABLET PO SCH (21:52)
[2016-06-08] VITALS (12 sets, daily range): BP systolic 97–139; BP diastolic 49–78; PULSE 60–130; RESP 18–20
--- NOTE | 2016-06-08 01:01 | PN ---
DATE: 06/07/2016 SUBJECTIVE: Discussed with the staff. Rhythm strip was reviewed. The patient remains in sinus rhy thm. Denies any chest pain or pressure. Feeling better. Breathing has improved. MEDICATIONS: Reviewed, which include: 1. Lasix 40. 2. Zosyn. 3. Aspirin. 4. Plavix. 5. Lipitor. 6. Coreg. PHYSICAL EXAMINATION: VITAL SIGNS: Temperature 97.9, heart rate of 64, blood pressure 127/60, respiratory rate of 20, sat urating 100%. HEENT: Normocephalic, atraumatic. Thin gentleman. CARDIOVASCULAR: Regular rate and rhythm. PULMONARY: No wheezes heard now. GASTROINTESTINAL: Soft, nontender. EXTREMITIES: No significant lower extremity edema. NEUROLOGIC: Awake, responds appropriately. PSYCHIATRIC: Appeared to be calm. LABORATORY: WBC of 15.6, hemoglobin 11.4, platelets of 146. Sodium 138, potassium 5, BUN of 71, cr eatinine of 1.96, glucose of 75 ____ 11.2, ALT of 90 ____ 29,300. LDL 93, HDL of 17. I's and O's s how 530 in and 2700 out. Echocardiogram was personally reviewed, shows severe LV dysfunction, ejection fraction of 10% to 15% . Troponin this morning is 1.46. ASSESSMENT AND PLAN: 1. Non-ST elevation myocardial infarction. 2. Renal failure, acute on chronic. 3. Hyperkalemia. 4. Severe cardiomyopathy. 5. Congestive heart failure. 6. Coronary artery disease. 7. History of multiple myocardial infarctions and multiple percutaneous coronary interventions. 8. Dyslipidemia. 9. Hypertension. 10. Poor compliance. 11. History of cerebrovascular accident. 12. Paroxysmal atrial fibrillation. RECOMMENDATIONS: I will discontinue the patient's aspirin, keep him on Plavix and Eliquis for now. Will continue with the Coreg. Once the blood pressure improves, I will place him on hydralazine __ __ combination of JOSE MARIA inhibitor. Will follow renal function, follow with renal recommendations. Co ntinue to closely monitor on the telemetry as well. Dictated By: LUCÍA CUNHA MD AV/SANCHEZ Conf#: [id number] DID#: [id number] CC: MAXIMILIANO MCGRAW MD; JOÃO OROZCO DO;*EndCC*
[2016-06-08] MEDS: PIPER-TAZO 2.25 GM (PMX) 50 ML IVPB SCH ×3 (06:00→21:14)
--- NOTE | 2016-06-08 06:26 | CONS ---
DATE OF ADMISSION: 06/06/2016 DATE OF CONSULTATION: 06/07/2016 REQUESTING PHYSICIAN: Dr. Ceja Dear Dr. Ceja, Thank you for asking me to see this patient in urological consultation. He is well known to me from prior admission. He presented to [facility] because of . The patient has h ad a history of urinary retention before and the concern about urinary retention again is raised and therefore a urological consultation was requested. The patient does have multiple medical problems , history of acute respiratory failure in the past, intubation and extubation after that, history of congestive heart failure, systolic and diastolic, history of chronic kidney disease, prior history of ventricular tachycardia and pulmonary hypertension, COPD, , history of essential hypertensio n, iron deficiency anemia, dysphagia, and benign prostatic hypertrophy, , past history of atria l fibrillation, history of prior stroke, coronary artery disease and thrombocytopenia. PAST MEDICAL HISTORY: As stated above. PAST SURGICAL HISTORY: The patient has coronary stenting in the past, left shoulder surgery. FAMILY HISTORY: Positive for hypertension and heart disease. SOCIAL HISTORY: He is a smoker and still smoking cigarettes. There is no history of alcohol abuse or drug abuse. PHYSICAL EXAMINATION: GENERAL: Reveals an elderly male, 75 years old. He weighs about 83.9 kg and he is 65 inches tall. VITAL SIGNS: Show a temperature of 97, pulse is 64, respirations 20, blood pressure 126/60. HEAD AND NECK: Appear normal. The neck is supple. ABDOMEN: Soft. There is no abdominal mass palpable. There is no tenderness. GENITALIA: External genitalia normal. He does have an indwelling Zuniga catheter that is draining c lear urine. RECTAL: Examination revealed a soft prostate. LABORATORY DATA: CBC shows a white count of 15.6, hemoglobin 11.4, hematocrit 34.5. BUN is 71, cre atinine 1.96. Sodium 138, potassium 5.0, chloride 101, CO2 23. IMPRESSION: History of urinary retention and patient had the same in the past and eventually he was able to urinate after the catheter was removed. MEDICATIONS: The patient presently is on medication that: Include: 1. Furosemide. 2. Eliquis. 3. Zosyn 4. Plavix. 5. Avodart. 6. Pepcid. 7. Isosorbide. 8. Atorvastatin. 9. Advair. 10. Carvedilol. 11. Zofran. 12. Tylenol. 13. [place]. 15. Morphine. 16. Colace. 17. Milk of magnesia. 18. Lorazepam. 19. Hydralazine p.r.n. 20. Clonidine p.r.n. 21. Nitroglycerin p.r.n. RECOMMENDATION: At the present time, I would keep him on the Zuniga catheter, continue his Avodart. I will add Flomax to help and more effective than having him on Avodart if one wants him to urinate and then once he is medically stable and then we could take out the Zuniga catheter and see if he do es urinate on his own and check his postvoid residual. I will follow his urological problem with you. I do thank you for allowing me to help in his care. Dictated By: LIZZIE RAJAN/SANCHEZ Conf#: [id number] DID#: [id number]
[2016-06-08] MEDS: DUTASTERIDE 0.5 MG CAP PO SCH (08:49)
[2016-06-08] MEDS: ISOSORBIDE MONONITRATE(SR)30 MG TAB PO SCH (08:49)
[2016-06-08] MEDS: FAMOTIDINE 20 MG TAB PO SCH (08:50)
[2016-06-08] MEDS: CLOPIDOGREL 75 MG TAB PO SCH (08:50)
[2016-06-08] MEDS: APIXABAN 5 MG TABLET PO SCH ×2 (08:50→21:13)
[2016-06-08] MEDS: SALMETEROL/FLUTICASONE 250/50 INHA INH SCH ×2 (08:51→21:12)
[2016-06-08] MEDS ORDERED: FUROSEMIDE 40 MG TAB PO SCH (09:00)
[2016-06-08 10:00] LABS: BASOPHIL # 0.1 10^3/ul (0.0-0.1); BASOPHILS % 0.5 % (0.0-2.0); EOSINOPHILS # 0.1 10^3/ul (0.0-0.5); EOSINOPHILS % 0.9 % (0.0-7.0); HEMATOCRIT 32.3 % (42.0-52.0); HEMOGLOBIN 10.3 g/dl (14.0-18.0); LYMPHOCYTES # 0.8 10^3/ul (0.8-2.9); MEAN CORPUSCULAR HEMOGLOBIN 26.3 pg (29.0-33.0); MEAN CORPUSCULAR VOLUME 82.3 fl (82.0-101.0); MEAN PLATELET VOLUME 10.3 fl (7.4-10.4); MONOCYTE # 0.9 10^3/ul (0.3-0.9); MONOCYTES % 8.7 % (0.0-11.0); NEUTROPHIL # 8.1 10^3/ul (1.6-7.5); NEUTROPHILS % 81.9 % (39.0-77.0); PLATELET COUNT 114 10^3/UL (140-440); RED BLOOD COUNT 3.93 10^6/ul (4.70-6.10); RED CELL DISTRIBUTION WIDTH 21.7 % (11.5-14.5); UNCORRECTED WBC 9.9 10^3/ul (4.8-10.8); WHITE BLOOD COUNT 9.9 10^3/ul (4.8-10.8)
[2016-06-08 10:10] LABS: POTASSIUM 4.6 mmol/L (3.5-5.1)
[2016-06-08 10:13] LABS: CALCIUM 8.3 mg/dl (8.4-10.2); CONDITION 1; CREATININE 1.58 mg/dl (0.61-1.24); LH ANALYZER COMMENTS 1
--- NOTE | 2016-06-08 10:25 | PN ---
DATE: 06/08/2016 SUBJECTIVE: The patient continues to cough with some productive sputum. No other acute events note d. No hemoptysis, hematemesis or hematochezia. OBJECTIVE: VITAL SIGNS: Blood pressure 124/58, respirations 20, pulse 66, temperature 97.8. I's AND O'S: The patient had 980 in with 3 liters out. HEENT: Head is normocephalic. NECK: Supple. HEART: Regular rate. LUNGS: Show diminished breath sounds at base. ABDOMEN: Soft, nontender to palpation. No rebound or guarding. EXTREMITIES: Negative for clubbing, cyanosis, no edema. DERMATOLOGIC: No rashes. MUSCULOSKELETAL: No joint effusions. NEUROLOGIC: No change in exam. MEDICATIONS: Reviewed. LABORATORY DATA: Currently pending. ASSESSMENT AND PLAN: 1. Nonoliguric acute kidney injury on top of chronic kidney disease stage IIIB/IV with history of b aseline creatinine of 1.5 mg/dL. Etiology likely secondary to cardiorenal syndrome, possible tubula r injury. The patient currently on diuretic therapy and diuresing well with over 5 liters urinary o utput in last 48 hours. At this point, continue current treatment plan. Continue Lasix 40 mg daily . We will follow up renal panel today. If renal function should further decline, would consider de escalating diuretic therapy to enable fluid to mobilize. Otherwise, continue current treatment plan . 2. Hyperkalemia secondary to acute kidney injury, resolved. 3. Anemia of chronic disease. Continue to monitor hemoglobin and hematocrit levels. 4. Mineral bone disorder. Continue to monitor calcium, phosphorus levels. No need for phosphate b inders at this time. 5. Chronic kidney disease, stage III, secondary to hypertension, nephrosclerosis and cardiorenal sy ndrome. The patient is currently in acute kidney injury as stated above. Continue current treatmen t plan. 6. Acute systolic, diastolic heart failure. The patient is diuresing well. Currently on Lasix 40 mg daily. We will continue. We will follow up renal panel and adjust diuretic as needed. 7. Non-ST elevation myocardial infarction. Continue current medical management. 8. History of chronic obstructive pulmonary disease. Continue current medical management. 9. Benign prostatic hypertrophy, urinary retention, status post Zuniga catheter placement. Follow u p with urology. 10. Hypertension. Continue current blood pressure regimen. 11. Diabetes, continue Accu-Cheks and insulin sliding scale. Dictated By: JOÃO ROBISON/SANCHEZ Conf#: [id number] DID#: [id number]
--- NOTE | 2016-06-08 12:30 | RADRPT ---
PROCEDURE: XR Chest. CLINICAL INDICATION: Shortness of breath. TECHNIQUE: Single frontal view. COMPARISON: 06/06/2016. FINDINGS: There is bilateral interstitial pulmonary disease consistent with pulmonary edema, unchanged. The l ungs are otherwise clear. The heart is enlarged. There is a small right pleural effusion, unchanged. There is no left pleural effusion. There is no pneumothorax. There has been prior left proximal humerus surgery with a lateral plate an d screws. IMPRESSION: 1. Unchanged pulmonary edema, cardiomegaly, and small right pleural effusion. 2. Prior left shoulder surgery. RPTAT: QQ .Mikey Leal MD, MD Date Time Electronically viewed and signed by .Mikey Leal MD, MD on 06/08/2016 12:30 .R/
--- NOTE | 2016-06-08 14:37 | PN ---
Date/Time of Note Date/Time of Note DATE: 06/08/16 TIME: 14:32 Assessment/Plan VTE Prophylaxis VTE Prophylaxis Intervention: other (eliquis) Lines/Catheters IV Catheter Type (from [facility]): Saline Lock Urinary Cath still in place: Yes Reason Cath still needed: other (indicate) Assessment/Plan Assessment/Plan 1. Pneumonia, zosyn to cover aspiration 2. Urinary tract infection, on zosyn 2. Congestive heart failure exacerbation. systolic, acute on chronic,diuretics 3. Omecf-cf-reneguh renal insufficiency, follow up with BMP 4. Hyperkalemia. Renal failure related, resolved. 5. Atrial fibrillation. continue Eliquis. 6. History of prior stroke. He is on aspirin and Plavix. Continue that. 7. Coronary artery disease. Again, he is on aspirin and Plavix. Continue. 8. Pulmonary hypertension. Continue to monitor for now. He is on DuoNeb p.r.n. Continue current cardiac medicines. 9. History of aortic stenosis, again will get echocardiogram. Follow up cardiology recommendations as well. 10. Prostate issues. on Flomax 11. Lethargy unclear. He has had a history of encephalopathy in the past. Consider head CT, hold his Lidoderm patch as well. Be cautious with his pain control medications. 12. Gastrointestinal prophylaxis, H2 kehinde. 13. Deep venous thrombosis prophylaxis. He is on Eliquis for his atrial fibrillation. Will get PT, OT consults as well and speech therapy consult. Subjective 24 Hr Interval Summary Free Text/Dictation less cough and shortness of breath Exam/Review of Systems Vital Signs Vitals Vital Signs Date Time Temp Pulse Resp B/P Pulse Ox O2 Delivery O2 Flow Rate FiO2 06/08/16 12:36 72 06/08/16 11:56 98.0 20 117/56 98 06/08/16 08:30 Nasal Cannula 2.0 Intake and Output 06/07/16 06/07/16 06/08/16 15:00 23:00 07:00 Intake Total 50 ml 480 ml 450 ml Output Total 2700 ml 600 ml Balance 50 ml -2220 ml -150 ml Exam Constitutional: alert, oriented, well developed Psych: nl mood/affect, no complaints Head: atraumatic, normocephalic Eyes: EOMI, PERRL, nl conjunctiva, nl lids, nl sclera ENMT: mucosa pink and moist, nl external ears & nose, nl lips & teeth, nl nasal mucosa & septum Neck: non-tender, supple Respiratory: other (rhonchi mainly on right) Cardiovascular: nl pulses, regular rate and rhythm, No S3, No S4, No bruits, No diastolic murmur, No edema, No gallop, No irregular rhythm, No jugular venous distention (JVD), No murmurs/extra sounds, No rub, No systolic murmur Gastrointestinal: nl liver, spleen, non-tender, soft, No ascites, No bowel sounds, No distended, No firm, No hepatomegaly, No mass , No rebound or guarding, No splenomegaly, No surgical scars, No tender Musculoskeletal: nl extremities to inspection Neurological: LEARNING AND DEVELOPMENT OFFICER II-XII intact, nl mental status, nl speech, nl strength Skin: nl turgor, rash or lesions Lymph: nl lymph nodes Results Result Diagram: 06/08/16 0930 06/08/16 0930 Results 24 hrs Laboratory Tests Test 06/08/16 09:30 Anion Gap 14 B-Type Natriuretic Peptide 02879 H Basophils # 0.1 Basophils % 0.5 Blood Morphology Comment Blood Urea Nitrogen 60 H Calcium Level 8.3 L Carbon Dioxide Level 28 Chloride Level 102 Creatinine 1.58 H Eosinophils # 0.1 Eosinophils % 0.9 Glucose Level 115 # Hematocrit 32.3 L Hemoglobin 10.3 L Lymphocytes # 0.8 Lymphocytes % 8.0 L Mean Corpuscular Hemoglobin 26.3 L Mean Corpuscular Hemoglobin Concent 32.0 Mean Corpuscular Volume 82.3 Mean Platelet Volume 10.3 Monocytes # 0.9 Monocytes % 8.7 Neutrophils # 8.1 H Neutrophils % 81.9 H Nucleated Red Blood Cells # 0.0 Nucleated Red Blood Cells % 0.0 Platelet Count 114 #L Potassium Level 4.6 Red Blood Count 3.93 L Red Cell Distribution Width 21.7 H Sodium Level 139 White Blood Count 9.9 # Medications Medications Current Medications Ondansetron HCl (Zofran Inj) 4 mg Q6H PRN IV NAUSEA AND/OR VOMITING; Start at 13:30 Acetaminophen (Tylenol Tab) 650 mg Q6H PRN PO PAIN LEVEL 1-3 OR FEVER; Start at 13:30 Acetaminophen/ Hydrocodone Bitart ([place] (5/325)) 1 tab Q6H PRN PO MODERATE PAIN LEVEL 4-6; Start 06/06/16 at 13:30 Morphine Sulfate (morphine) 2 mg Q4H PRN IV SEVERE PAIN LEVEL 7-10; Start 06/06 at 13:30 Docusate Sodium (Colace) 100 mg Q12H PRN PO CONSTIPATION; Start 06/06/16 at 13: 30 Magnesium Hydroxide (Milk Of Mag) 30 ml DAILY PRN PO CONSTIPATION; Start at 13:30 Sodium Biphosphate/ Sodium Phosphate (Fleet Enema) 133 ml DAILY PRN [place] CONSTIPATION; Start 06/06/16 at 13:30 Lorazepam (Ativan) 0.5 mg Q6H PRN IV ANXIETY; Start 06/06/16 at 13:30 Hydralazine HCl (Apresoline) 10 mg Q6H PRN IV ELEVATED BLOOD PRESSURE; Start at 13:30 Clonidine (Catapres) 0.1 mg Q6H PRN PO ELEVATED BLOOD PRESSURE; Start 06/06/16 at 13:30 Nitroglycerin (Nitroglycerin (Sl Tab) 0.4 Mg) 1 tab Q5M PRN SL ANGINA; Start at 13:30 Atorvastatin Calcium (Lipitor) 80 mg QHS PO Last administered on 06/07/16 21: 52; Admin Dose 80 MG; Start 06/06/16 at 21:00 Clopidogrel Bisulfate (plaVIX) 75 mg DAILY PO Last administered on 06/08/16 08 :50; Admin Dose 75 MG; Start 06/07/16 at 09:00 Dutasteride (Avodart) 0.5 mg DAILY PO Last administered on 06/08/16 08:49; Admin Dose 0.5 MG; Start 06/07/16 at 09:00 Famotidine (Pepcid) 20 mg DAILY PO Last administered on 06/08/16 08:50; Admin Dose 20 MG; Start 06/07/16 at 09:00 Isosorbide Mononitrate (Imdur) 30 mg DAILY PO Last administered on 06/08/16 08 :49; Admin Dose 30 MG; Start 06/07/16 at 09:00 Salmeterol Xinafoate/ Fluticasone (Advair 250/50 Diskus) 1 inh BID INH Last administered on 06/08/16 08:51; Admin Dose 1 INH; Start 06/06/16 at 21:00 Carvedilol 6.25 mg 6.25 mg BID PO Last administered on 06/08/16 08:50; Admin Dose 6.25 MG; Start 06/06/16 at 21:00 Piperacillin Sod/ Tazobactam Sod (Zosyn 2.25gm/ 50ml (Pmx)) 50 ml @ 100 mls/hr Q8 IVPB Last administered on 06/08/16 13:36; Admin Dose 100 MLS/HR; Start at 14:00 Furosemide (Lasix) 40 mg DAILY PO Last administered on 06/08/16 08:49; Admin Dose 40 MG; Start 06/08/16 at 09:00 Apixaban (Eliquis) 2.5 mg BID PO Last administered on 06/08/16 08:50; Admin Dose 2.5 MG; Start 06/07/16 at 21:00 MAXIMILIANO MCGRAW MD Jun 08, 2016 14:37
--- NOTE | 2016-06-08 17:52 | PN ---
DATE: 06/08/2016 CARDIOLOGY FOLLOWUP SUBJECTIVE: The patient remains in sinus rhythm. He has severe dyspnea on exertion with limited ac tivity but no chest pain or pressure. No palpitation. Denies any PND or orthopnea to me. MEDICATIONS: Reviewed, which includes: 1. Lasix 40. 2. Eliquis 4.5. 3. Zosyn. 4. Plavix. 5. Avodart. 6. Pepcid. 7. Imdur. 8. Lipitor. 9. Coreg 6.25. PHYSICAL EXAMINATION: VITAL SIGNS: Temperature 98, heart rate of 72, blood pressure 117/56, respiration rate of 20, satur ating 98%. HEENT: Normocephalic, atraumatic. Thin, cachectic gentleman. Pupils are equal. CARDIOVASCULAR: Regular rate and rhythm, systolic ejection murmur. PULMONARY: Mild rhonchi at the base bilaterally. GASTROINTESTINAL: Soft, nontender. EXTREMITIES: With very trivial lower extremity edema. NEUROLOGIC: Awake, alert x3. PSYCHIATRIC: Calm, pleasant. GENITOURINARY: Status post Zuniga catheter in place. LABORATORY: Sodium 139, potassium 4.6, BUN of 60, creatinine 1.58, glucose 115. ProBNP of 19,000. WBC of 9.9, hemoglobin 10.3, platelets of 114. Chest x-ray shows unchanged pulmonary edema, cardiomegaly, small pleural effusion. I's and O's showed 980 in and 3300 out. ASSESSMENT AND PLAN: 1. Congestive heart failure exacerbation, acute on chronic, secondary to severe systolic dysfunctio n as well as valvular heart disease. 2. Severe ischemic cardiomyopathy. 3. Wxp-PC-kbhyhypfj myocardial infarction. 4. Chronic obstructive pulmonary disease. 5. Renal failure. 6. Hyperkalemia 7. Hypertension. 8. Benign prostatic hypertrophy. RECOMMENDATIONS: The patient has a Zuniga catheter in place. He is currently responding to current medication, has significant improvement. We will continue with the current cardiac care for now. W ill try to optimize him for now. workup once his renal function improves. Dictated By: LUCÍA MARQUES/SANCHEZ Conf#: [id number] DID#: [id number] CC: JOÃO OROZCO DO;*EndCC*
--- NOTE | 2016-06-08 21:06 | PN ---
DATE: 06/08/2016 SUBJECTIVE: The patient does have a history of urinary retention in the past, and he does have a ur inary tract infection at the present. The Zuniga catheter is draining clear urine. OBJECTIVE: His temperature is 97.8, pulse 62, respirations 20, blood pressure 97/49. LABORATORY DATA: CBC shows a white count 9.9, hemoglobin 10.3, hematocrit 32.3. BUN is 60, creatin ine 1.58, sodium 139, potassium 4.6, chloride 102, CO2 28. Urine culture showing 100,000 colonies per milliliter of enterococcus pieces. The sensitivity is pe nding. The patient is on Zosyn IV. IMPRESSION: 1. Urinary tract infection. 2. History of urinary retention. PLAN: Continue the antibiotic pending the result of the urine infection sensitivity. The patient i s already on Avodart, and I'm going to add him on the Flomax to help with his urination in addition to the Avodart and discontinue the Zuniga catheter at 6 a.m. and check his postvoid residual. Dictated By: LIZZIE RAJAN/SANCHEZ Conf#: [id number] DID#: [id number]
[2016-06-08] MEDS: TAMSULOSIN (SR) 0.4 MG CAP PO SCH (21:13)
[2016-06-08] MEDS: ATORVASTATIN 80 MG TAB PO SCH (21:13)
[2016-06-09] VITALS (11 sets, daily range): BP systolic 117–130; BP diastolic 57–80; PULSE 59–66; RESP 19–20
[2016-06-09] MEDS: PIPER-TAZO 2.25 GM (PMX) 50 ML IVPB SCH ×3 (05:52→22:23)
[2016-06-09] MEDS: FAMOTIDINE 20 MG TAB PO SCH (09:16)
[2016-06-09] MEDS: CLOPIDOGREL 75 MG TAB PO SCH (09:16)
[2016-06-09] MEDS: SALMETEROL/FLUTICASONE 250/50 INHA INH SCH ×2 (09:16→21:18)
[2016-06-09] MEDS: DUTASTERIDE 0.5 MG CAP PO SCH (09:18)
[2016-06-09] MEDS: APIXABAN 5 MG TABLET PO SCH ×2 (09:18→21:19)
[2016-06-09] MEDS: ISOSORBIDE MONONITRATE(SR)30 MG TAB PO SCH (09:19)
[2016-06-09] MEDS: FUROSEMIDE 40 MG TAB PO SCH ×2 (09:20→17:25)
--- NOTE | 2016-06-09 10:39 | PN ---
DATE: 06/09/2016 SUBJECTIVE: The patient continues to have shortness of breath, cough. No other acute vents noted. N o hemoptysis, hematemesis or hematochezia. OBJECTIVE: VITAL SIGNS: Blood pressure is 117/57, respirations 20, pulse 64, temperature 98.1 I'S AND O'S: The patient had 1.6 liters in, 2.1 liters out. HEENT: Head is normocephalic. NECK: Supple. HEART: Regular rate. LUNGS: Show diminished breath sounds at the base. ABDOMEN: Soft, nontender to palpation. No rebound or guarding. EXTREMITIES: Negative for clubbing, cyanosis. Trace edema. DERMATOLOGIC: No rashes. MUSCULOSKELETAL: No joint effusions. NEUROLOGIC: No change in exam. MEDICATIONS: Patient's medication reviewed. LABORATORY DATA: Sodium 139, potassium 4.6, chloride 102, BUN 60, creatinine 1.58. White count 9.9 , hemoglobin 10.3, hematocrit 32.3, platelet count is 114. IMAGING: Patient's chest x-ray shows pulmonary edema, no change. ASSESSMENT AND PLAN: 1. Nonoliguric acute kidney injury on top of chronic kidney disease stage IIIB/IV with a baseline c reatinine of 1.5 mg/dL. Etiology of acute kidney injury is secondary to cardiorenal syndrome. The patient's renal function has been improving with diuretic therapy. The patient's repeat chest x-ray continues to show pulmonary congestion. We will plan to up titrate Lasix 40 mg b.i.d. Continue to monitor renal function closely. 2. Hyperkalemia secondary to acute kidney injury, resolved. 3. Anemia of chronic disease. Continue to monitor hemoglobin and hematocrit levels. 4. Mineral bone disorder. Continue to monitor calcium and phosphorus levels. No need for phosphat e binders. 5. Chronic kidney disease stage III. Etiology is multifactorial. The patient is currently in acut e kidney injury as stated, continue treatment plan. 6. Acute systolic, diastolic heart failure. The patient is diuresing well. We will up titrate Las ix 40 mg b.i.d., monitor renal function, electrolytes closely. 7. Non-STEMI. Continue medical management. 8. History of chronic obstructive pulmonary disease. Continue current treatment plan. 9. Benign prostatic hypertrophy, urinary retention, status post Zuniga catheter placement. Follow u p with Urology. 10. Hypertension. Continue current blood pressure regimen. 11. Diabetes. Continue Accu-Cheks and insulin sliding scale. Dictated By: JOÃO ROBISON/SANCHEZ Conf#: [id number] DID#: [id number]
--- NOTE | 2016-06-09 10:53 | PN ---
DATE: 06/09/2016 CARDIOLOGY FOLLOWUP PROGRESS NOTE SUBJECTIVE: Discussed with the family, discussed with the staff. The patient remains in sinus rhyt hm. Denies any chest pain or pressure. Her breathing has remained stable. MEDICATIONS: Reviewed as per medication reconciliation, personally reviewed. PHYSICAL EXAMINATION: VITAL SIGNS: Temperature 98.1, heart rate of 64, blood pressure ____, respiration rate of 20, satur ating 96%. HEENT: Normocephalic, atraumatic. CARDIOVASCULAR: Regular rate and rhythm. PULMONARY: With mild rhonchi. GASTROINTESTINAL: Soft, nontender. EXTREMITIES: No significant lower extremity edema. NEUROLOGIC: Awake, alert. PSYCHIATRIC: Calm, pleasant. LABORATORY: Not done yet apparently he has been refusing. ASSESSMENT AND PLAN: 1. Non-ST elevation myocardial infarction with congestive heart failure ____ secondary to severe LV dysfunction, aortic valve disorder 2. Severe ischemic cardiomyopathy. 3. Chronic obstructive pulmonary disease.. 4. Renal failure. 5. Hyperkalemia. 6. Poor compliance. 7. Dyslipidemia. 8. Benign prostatic hypertrophy. RECOMMENDATIONS: We will continue with the current cardiac care. Try to get the blood tests if he allows us to. Cardiac catheterization will be a consideration once his renal insufficiency stabiliz es; however, the patient has been very noncompliant and does not follow much recommendations and has been refusing the labs. As long as he continues to do that. I do not see much benefit from aggress zuleima medical therapy given the fact that he has severe LV dysfunction already and severe aortic steno sis. Dictated By: LUCÍA MARQUES/SANCHEZ Conf#: [id number] DID#: [id number] CC: JOÃO OROZCO DO;*EndCC*
--- NOTE | 2016-06-09 13:57 | PN ---
DATE: 06/09/2016 SUBJECTIVE: Urinary retention. The patient has an indwelling Zuniga catheter which was removed this morning. The patient has not voided yet. He is trying in fact to urinate right now. OBJECTIVE: VITAL SIGNS: His temperature is 98.5, blood pressure 124/64, pulse is 67, respirations 20. ABDOMEN: Soft. GENITOURINARY: The patient again is trying to urinate right now. LABORATORY DATA: The urine culture showed enterococcus species that is resistant to Cipro, sensitiv e to ampicillin, penicillin G and vancomycin. The patient at the present is on Zosyn for his infection. He is also on tamsulosin and Avodart. PLAN: To check his postvoid residual with a bladder scan and if he has 300 mL of more of postvoid r esidual, do straight catheterization and if he does not void and the bladder volume is over 500, the n also do straight catheterization. Continue the tamsulosin, and the dutasteride, and the antibioti c. Dictated By: LIZZIE RAJAN/SANCHEZ Conf#: [id number] DID#: [id number]
--- NOTE | 2016-06-09 15:22 | PN ---
Date/Time of Note Date/Time of Note DATE: 06/09/16 TIME: 15:19 Assessment/Plan VTE Prophylaxis VTE Prophylaxis Intervention: other (eliquis) Lines/Catheters IV [facility]ter Type (from [facility]): Saline Lock Urinary Cath still in place: Yes Reason Cath still needed: urinary retention Assessment/Plan Assessment/Plan 1. Pneumonia, zosyn to cover aspiration 2. Urinary retention and urinary tract infection, on zosyn, follow up with urology 2. Congestive heart failure exacerbation. systolic, acute on chronic,diuretics 3. Servx-nt-gsgwtbd renal insufficiency, follow up with BMP 4. Hyperkalemia. Renal failure related, resolved. 5. Atrial fibrillation. continue Eliquis. 6. History of prior stroke. He is on aspirin and Plavix. Continue that. 7. Coronary artery disease. Again, he is on aspirin and Plavix. Continue. 8. Pulmonary hypertension. Continue to monitor for now. He is on DuoNeb p.r.n. Continue current cardiac medicines. 9. History of aortic stenosis, again will get echocardiogram. Follow up cardiology recommendations as well. 10. Prostate issues. on Flomax 11. Lethargy unclear. He has had a history of encephalopathy in the past. Consider head CT, hold his Lidoderm patch as well. Be cautious with his pain control medications. 12. Gastrointestinal prophylaxis, H2 kehinde. 13. Deep venous thrombosis prophylaxis. He is on Eliquis for his atrial fibrillation. Will get PT, OT consults as well and speech therapy consult. Subjective 24 Hr Interval Summary Free Text/Dictation no distress patient has urinary retention. Dr. Quiñones is seeing the patient for this Exam/Review of Systems Vital Signs Vitals Vital Signs Date Time Temp Pulse Resp B/P Pulse Ox O2 Delivery O2 Flow Rate FiO2 06/09/16 12:43 66 06/09/16 12:03 98.5 20 124/64 100 06/09/16 08:45 Nasal Cannula 2.0 Intake and Output 06/08/16 06/08/16 06/09/16 15:00 23:00 07:00 Intake Total 50 ml 1000 ml 600 ml Output Total 1600 ml 500 ml Balance 50 ml -600 ml 100 ml Exam Constitutional: alert, oriented, well developed Psych: nl mood/affect, no complaints Head: atraumatic, normocephalic Eyes: EOMI, PERRL, nl conjunctiva, nl sclera ENMT: mucosa pink and moist, nl external ears & nose, nl lips & teeth, nl nasal mucosa & septum Neck: non-tender, supple Respiratory: clear to auscultation, normal air movement Cardiovascular: nl pulses, regular rate and rhythm, No S3, No S4, No bruits, No diastolic murmur, No edema, No gallop, No irregular rhythm, No jugular venous distention (JVD), No murmurs/extra sounds, No rub, No systolic murmur Gastrointestinal: nl liver, spleen, non-tender, soft, No ascites, No bowel sounds, No distended, No firm, No hepatomegaly, No mass , No rebound or guarding, No splenomegaly, No surgical scars, No tender Musculoskeletal: nl extremities to inspection Extremities: normal pulses, No calf tenderness, No clubbing, No cyanosis, No edema, No palpable cord, No pitting pedal edema, No tenderness Neurological: PARTS SPECIALIST II-XII intact, nl mental status, nl speech, nl strength Skin: nl turgor, rash or lesions Lymph: nl lymph nodes Results Result Diagram: 06/08/1692906/08/1630 Results 24 hrs Laboratory Tests Test 06/09/16 07:34 Lab Scanned Report REFERENCE LAB Medications Medications Current Medications Ondansetron HCl (Zofran Inj) 4 mg Q6H PRN IV NAUSEA AND/OR VOMITING; Start at 13:30 Acetaminophen (Tylenol Tab) 650 mg Q6H PRN PO PAIN LEVEL 1-3 OR FEVER; Start at 13:30 Acetaminophen/ Hydrocodone Bitart ([place] (5/325)) 1 tab Q6H PRN PO MODERATE PAIN LEVEL 4-6; Start 06/06/16 at 13:30 Morphine Sulfate (morphine) 2 mg Q4H PRN IV SEVERE PAIN LEVEL 7-10; Start 06/06 at 13:30 Docusate Sodium (Colace) 100 mg Q12H PRN PO CONSTIPATION; Start 06/06/16 at 13: 30 Magnesium Hydroxide (Milk Of Mag) 30 ml DAILY PRN PO CONSTIPATION; Start at 13:30 Sodium Biphosphate/ Sodium Phosphate (Fleet Enema) 133 ml DAILY PRN [place] CONSTIPATION; Start 06/06/16 at 13:30 Lorazepam (Ativan) 0.5 mg Q6H PRN IV ANXIETY; Start 06/06/16 at 13:30 Hydralazine HCl (Apresoline) 10 mg Q6H PRN IV ELEVATED BLOOD PRESSURE; Start at 13:30 Clonidine (Catapres) 0.1 mg Q6H PRN PO ELEVATED BLOOD PRESSURE; Start 06/06/16 at 13:30 Nitroglycerin (Nitroglycerin (Sl Tab) 0.4 Mg) 1 tab Q5M PRN SL ANGINA; Start at 13:30 Atorvastatin Calcium (Lipitor) 80 mg QHS PO Last administered on 06/08/16 21: 13; Admin Dose 80 MG; Start 06/06/16 at 21:00 Clopidogrel Bisulfate (plaVIX) 75 mg DAILY PO Last administered on 06/09/16 09 :16; Admin Dose 75 MG; Start 06/07/16 at 09:00 Dutasteride (Avodart) 0.5 mg DAILY PO Last administered on 06/09/16 09:18; Admin Dose 0.5 MG; Start 06/07/16 at 09:00 Famotidine (Pepcid) 20 mg DAILY PO Last administered on 06/09/16 09:16; Admin Dose 20 MG; Start 06/07/16 at 09:00 Isosorbide Mononitrate (Imdur) 30 mg DAILY PO Last administered on 06/09/16 09 :19; Admin Dose 30 MG; Start 06/07/16 at 09:00 Salmeterol Xinafoate/ Fluticasone (Advair 250/50 Diskus) 1 inh BID INH Last administered on 06/09/16 09:16; Admin Dose 1 INH; Start 06/06/16 at 21:00 Carvedilol 6.25 mg 6.25 mg BID PO Last administered on 06/09/16 09:19; Admin Dose 6.25 MG; Start 06/06/16 at 21:00 Piperacillin Sod/ Tazobactam Sod (Zosyn 2.25gm/ 50ml (Pmx)) 50 ml @ 100 mls/hr Q8 IVPB Last administered on 06/09/16 14:04; Admin Dose 100 MLS/HR; Start at 14:00 Apixaban (Eliquis) 2.5 mg BID PO Last administered on 06/09/16 09:18; Admin Dose 2.5 MG; Start 06/07/16 at 21:00 Tamsulosin HCl (Flomax) 0.4 mg HS PO Last administered on 06/08/16 21:13; Admin Dose 0.4 MG; Start 06/08/16 at 21:00 MAXIMILIANO MCGRAW MD Jun 09, 2016 15:22
[2016-06-09] MEDS: ATORVASTATIN 80 MG TAB PO SCH (21:19)
[2016-06-09] MEDS: TAMSULOSIN (SR) 0.4 MG CAP PO SCH (21:19)
[2016-06-10] MEDS: PIPER-TAZO 2.25 GM (PMX) 50 ML IVPB SCH ×3 (05:11→21:37)
[2016-06-10] MEDS: FUROSEMIDE 40 MG TAB PO SCH ×2 (05:12→18:11)
[2016-06-10 05:22] LABS: BASOPHILS % 0.2 % (0.0-2.0); EOSINOPHILS # 0.4 10^3/ul (0.0-0.5); HEMATOCRIT 32.4 % (42.0-52.0); HEMOGLOBIN 10.3 g/dl (14.0-18.0); LYMPHOCYTES # 1.1 10^3/ul (0.8-2.9); LYMPHOCYTES % 11.4 % (15.0-51.0); MEAN CORPUSCULAR HEMOGLOBIN 26.4 pg (29.0-33.0); MEAN CORPUSCULAR HGB CONC 31.8 g/dl (32.0-37.0); MEAN CORPUSCULAR VOLUME 82.8 fl (82.0-101.0); MEAN PLATELET VOLUME 10.3 fl (7.4-10.4); MONOCYTE # 1.1 10^3/ul (0.3-0.9); MONOCYTES % 11.6 % (0.0-11.0); NEUTROPHIL # 7.1 10^3/ul (1.6-7.5); NEUTROPHILS % 72.8 % (39.0-77.0); PLATELET COUNT 135 10^3/UL (140-440); RED BLOOD COUNT 3.91 10^6/ul (4.70-6.10); RED CELL DISTRIBUTION WIDTH 21.1 % (11.5-14.5); UNCORRECTED WBC 9.7 10^3/ul (4.8-10.8); WHITE BLOOD COUNT 9.7 10^3/ul (4.8-10.8)
[2016-06-10 05:24] LABS: POTASSIUM 3.9 mmol/L (3.5-5.1)
[2016-06-10 05:26] LABS: CREATININE 1.19 mg/dl (0.61-1.24)
[2016-06-10 05:27] LABS: CALCIUM 8.3 mg/dl (8.4-10.2)
[2016-06-10 06:10] LABS: CONDITION 1; LH ANALYZER COMMENTS 1
[2016-06-10 07:59] VITALS: BP 134/67; RESP 18
[2016-06-10] MEDS: FAMOTIDINE 20 MG TAB PO SCH (11:03)
[2016-06-10] MEDS: DUTASTERIDE 0.5 MG CAP PO SCH (11:03)
[2016-06-10] MEDS: SALMETEROL/FLUTICASONE 250/50 INHA INH SCH ×2 (11:03→20:56)
[2016-06-10] MEDS: CLOPIDOGREL 75 MG TAB PO SCH (11:04)
[2016-06-10] MEDS: ISOSORBIDE MONONITRATE(SR)30 MG TAB PO SCH (11:04)
[2016-06-10] MEDS: APIXABAN 5 MG TABLET PO SCH ×2 (11:05→20:56)
--- NOTE | 2016-06-10 11:34 | PN ---
DATE: 06/10/2016 SUBJECTIVE: The patient is clinically stable, no acute events overnight. No hemoptysis, hematemesi s. OBJECTIVE: VITAL SIGNS: Blood pressure 134/67, respirations 18, pulse 69, temperature 97.8. HEENT: Head is normocephalic. NECK: Supple. HEART: Regular rate. LUNGS: Show diminished breath sounds at base. Positive rhonchi and crackles. ABDOMEN: Soft, nontender to palpation, no rebound or guarding. EXTREMITIES: Negative for clubbing, cyanosis. No edema. DERMATOLOGIC: No rashes. MUSCULOSKELETAL: No joint effusions. NEUROLOGIC: No change in exam. MEDICATIONS: The patient's medications have been reviewed. LABORATORY DATA: Shows sodium 141, potassium 3.9, BUN 36, creatinine 1.19. White count is 9.7, hem oglobin 10.3, hematocrit 32.4, platelet count 135. ASSESSMENT AND PLAN: 1. Nonoliguric acute kidney injury on top of chronic kidney disease stage IIIB/IV with a previous b aseline creatinine of 1.5 mg/dL. Etiology of acute kidney injury is secondary to cardiorenal syndro me. The patient's renal function has improved with diuretic therapy. Continue current treatment pl an. Continue Lasix 40 mg b.i.d., monitor renal function closely. 2. Hyperkalemia secondary to acute kidney injury, improved. 3. Anemia of chronic disease. Continue to monitor hemoglobin and hematocrit levels. 4. Mineral bone disorder. Continue to monitor calcium and phosphorus levels. No need for phosphat e binders. 5. Chronic kidney disease, stage IIIB/IV. Etiology is multifactorial. Continue to treat acute kid kimberly injury as stated above. 6. Acute systolic, diastolic heart failure. The patient is clinically improving. Continue current diuretic regimen. Follow up with cardiology. 7. Coronary artery disease, history of non-STEMI. Continue medical management. 8. Chronic obstructive pulmonary disease. Continue current treatment plan. 9. Benign prostatic hypertrophy, urinary retention, will continue medical management and follow up with urology. 10. Hypertension, controlled. 11. Diabetes. Continue Accu-Cheks, insulin sliding scale. Dictated By: JOÃO ROBISON/NTS Conf#: [id number] DID#: [id number]
--- NOTE | 2016-06-10 12:54 | PN ---
DATE: 06/10/2016 CARDIOLOGY FOLLOWUP SUBJECTIVE: Discussed with the staff. Rhythm strip was reviewed. The patient with no chest pain o r pressure, breathing has improved. Wants to go home in fact. telemetry. MEDICATIONS: Reviewed as per medication reconciliation, personally reviewed. PHYSICAL EXAMINATION: VITAL SIGNS: Temperature 97.8, heart rate of 69, blood pressure 134/67, respiration rate of 18, sat urating 100%. HEENT: Normocephalic, atraumatic. Thin, cachectic gentleman. Pupils are equal. CARDIOVASCULAR: Regular rate and rhythm, systolic murmur. PULMONARY: Minimal rhonchi at the base. GASTROINTESTINAL: Soft, nontender. EXTREMITIES: With no significant lower extremity edema. NEUROLOGIC: Awake and alert. PSYCHIATRIC: Appeared to be calm. LABORATORY: Sodium 141, potassium 3.9, BUN of 36, creatinine 1.19, glucose of 99, WBC of 9.7, hemog lobin 10.3, platelets of 135. ASSESSMENT AND PLAN: 1. Hypoxic respiratory failure. 2. Ilp-GA-qxabsfifp myocardial infarction. 3. Severe ischemic cardiomyopathy. 4. Acute renal failure. 5. Chronic obstructive pulmonary disease and possible pneumonia. 6. Hyperkalemia, resolved. 7. Dyslipidemia. 8. History of benign prostatic hypertrophy. 9. History of poor compliance. RECOMMENDATIONS: The patient is currently improving on the current regimen. We will continue with the Eliquis for his paroxysmal atrial fibrillation, history of CVA in the past. We will continue wi th the Coreg as tolerated, Lasix at the current dose will be continued as well. Will continue medic al therapy only given the patient's unwilling to continue with intervention and as well as poor comp liance. Dictated By: LUCÍA CUNHA MD AV/NTS Conf#: [id number] DID#: [id number] CC: MAXIMILIANO MCGRAW MD;*End*
--- NOTE | 2016-06-10 15:55 | PN ---
Date/Time of Note Date/Time of Note DATE: 06/10/16 TIME: 15:50 Assessment/Plan VTE Prophylaxis VTE Prophylaxis Intervention: other (eliquis) Lines/Catheters IV [facility] [place] Urinary Cath still in place: No Assessment/Plan Assessment/Plan 1. Urinary retention and urinary tract infection with ACINETOBACTER BAUMANNII, on zosyn, follow up with urology 2. Pneumonia, zosyn to cover aspiration 3. Congestive heart failure exacerbation. systolic, acute on chronic,diuretics 4. Hxxtr-mi-ffknrlv renal insufficiency, follow up with BMP 5. Hyperkalemia. Renal failure related, resolved. 6. Atrial fibrillation. continue Eliquis. 7. Coronary artery disease. Again, he is on aspirin and Plavix. Continue. 8. Pulmonary hypertension. Continue to monitor for now. He is on DuoNeb p.r.n. Continue current cardiac medicines. 9. History of aortic stenosis, again will get echocardiogram. Follow up cardiology recommendations as well. 10. Prostate issues. on Flomax 11. History of prior stroke. He is on aspirin and Plavix. Continue that. 12. Gastrointestinal prophylaxis, H2 kehinde. 13. Deep venous thrombosis prophylaxis. He is on Eliquis for his atrial fibrillation. Will get PT, OT consults as well and speech therapy consult. Subjective 24 Hr Interval Summary Free Text/Dictation no distress but still needs in and out Zuniga catheter for urinary retention. I discussed the case with Dr. Quiñones this morning. Exam/Review of Systems Vital Signs Vitals Vital Signs Date Time Temp Pulse Resp B/P Pulse Ox O2 Delivery O2 Flow Rate FiO2 06/10/16 08:00 Nasal Cannula 2.0 06/10/16 07:59 97.8 69 18 134/67 100 Intake and Output 06/09/16 06/09/16 06/10/16 15:00 23:00 07:00 Intake Total 50 ml 1350 ml 500 ml Output Total 1075 ml 750 ml Balance 50 ml 275 ml -250 ml Exam Constitutional: alert, well developed Psych: nl mood/affect, no complaints Head: atraumatic, normocephalic Eyes: EOMI, nl conjunctiva, nl lids ENMT: mucosa pink and moist, nl external ears & nose, nl lips & teeth, nl nasal mucosa & septum Neck: non-tender, supple Respiratory: clear to auscultation, normal air movement, other (rhonchi), No congested cough, No crackles/rales, No diminished breath sounds, No intercostal retraction, No labored breathing, No respirations, No tactile fremitus, No wheezing Cardiovascular: nl pulses, regular rate and rhythm, No S3, No S4, No bruits, No diastolic murmur, No edema, No gallop, No irregular rhythm, No jugular venous distention (JVD), No murmurs/extra sounds, No rub, No systolic murmur Gastrointestinal: nl liver, spleen, non-tender, soft, No ascites, No bowel sounds, No distended, No firm, No hepatomegaly, No mass , No rebound or guarding, No splenomegaly, No surgical scars, No tender Musculoskeletal: nl extremities to inspection Extremities: normal pulses, No calf tenderness, No clubbing, No cyanosis, No edema, No palpable cord, No pitting pedal edema, No tenderness Neurological: TRANSPORT RN II-XII intact, nl speech, nl strength Skin: nl turgor, rash or lesions Lymph: nl lymph nodes Results Result Diagram: 06/10/16 0500 06/10/16 0440 Results 24 hrs Laboratory Tests Test 06/10/16 04:40 06/10/16 05:00 Anion Gap 14 Blood Urea Nitrogen 36 #H Calcium Level 8.3 L Carbon Dioxide Level 30 Chloride Level 101 Creatinine 1.19 Glucose Level 99 Potassium Level 3.9 Sodium Level 141 Basophils # 0.0 Basophils % 0.2 Blood Morphology Comment Eosinophils # 0.4 Eosinophils % 4.0 Hematocrit 32.4 L Hemoglobin 10.3 L Lymphocytes # 1.1 Lymphocytes % 11.4 L Mean Corpuscular Hemoglobin 26.4 L Mean Corpuscular Hemoglobin Concent 31.8 L Mean Corpuscular Volume 82.8 Mean Platelet Volume 10.3 Monocytes # 1.1 H Monocytes % 11.6 H Neutrophils # 7.1 Neutrophils % 72.8 Nucleated Red Blood Cells # 0.0 Nucleated Red Blood Cells % 0.0 Platelet Count 135 L Red Blood Count 3.91 L Red Cell Distribution Width 21.1 H White Blood Count 9.7 Medications Medications Current Medications Ondansetron HCl (Zofran Inj) 4 mg Q6H PRN IV NAUSEA AND/OR VOMITING; Start at 13:30 Acetaminophen (Tylenol Tab) 650 mg Q6H PRN PO PAIN LEVEL 1-3 OR FEVER; Start at 13:30 Acetaminophen/ Hydrocodone Bitart (Morgan (5/325)) 1 tab Q6H PRN PO MODERATE PAIN LEVEL 4-6; Start 06/06/16 at 13:30 Morphine Sulfate (morphine) 2 mg Q4H PRN IV SEVERE PAIN LEVEL 7-10; Start 06/06 at 13:30 Docusate Sodium (Colace) 100 mg Q12H PRN PO CONSTIPATION; Start 06/06/16 at 13: 30 Magnesium Hydroxide (Milk Of Mag) 30 ml DAILY PRN PO CONSTIPATION; Start at 13:30 Sodium Biphosphate/ Sodium Phosphate (Fleet Enema) 133 ml DAILY PRN [place] CONSTIPATION; Start 06/06/16 at 13:30 Lorazepam (Ativan) 0.5 mg Q6H PRN IV ANXIETY; Start 06/06/16 at 13:30 Hydralazine HCl (Apresoline) 10 mg Q6H PRN IV ELEVATED BLOOD PRESSURE; Start at 13:30 Clonidine (Catapres) 0.1 mg Q6H PRN PO ELEVATED BLOOD PRESSURE; Start 06/06/16 at 13:30 Nitroglycerin (Nitroglycerin (Sl Tab) 0.4 Mg) 1 tab Q5M PRN SL ANGINA; Start at 13:30 Atorvastatin Calcium (Lipitor) 80 mg QHS PO Last administered on 06/09/16 21: 19; Admin Dose 80 MG; Start 06/06/16 at 21:00 Clopidogrel Bisulfate (plaVIX) 75 mg DAILY PO Last administered on 06/10/16 11 :04; Admin Dose 75 MG; Start 06/07/16 at 09:00 Dutasteride (Avodart) 0.5 mg DAILY PO Last administered on 06/10/16 11:03; Admin Dose 0.5 MG; Start 06/07/16 at 09:00 Famotidine (Pepcid) 20 mg DAILY PO Last administered on 06/10/16 11:03; Admin Dose 20 MG; Start 06/07/16 at 09:00 Isosorbide Mononitrate (Imdur) 30 mg DAILY PO Last administered on 06/10/16 11 :04; Admin Dose 30 MG; Start 06/07/16 at 09:00 Salmeterol Xinafoate/ Fluticasone (Advair 250/50 Diskus) 1 inh BID INH Last administered on 06/10/16 11:03; Admin Dose 1 INH; Start 06/06/16 at 21:00 Carvedilol 6.25 mg 6.25 mg BID PO Last administered on 06/10/16 11:04; Admin Dose 6.25 MG; Start 06/06/16 at 21:00 Piperacillin Sod/ Tazobactam Sod (Zosyn 2.25gm/ 50ml (Pmx)) 50 ml @ 100 mls/hr Q8 IVPB Last administered on 06/10/16 15:02; Admin Dose 100 MLS/HR; Start at 14:00 Apixaban (Eliquis) 2.5 mg BID PO Last administered on 06/10/16 11:05; Admin Dose 2.5 MG; Start 06/07/16 at 21:00 Tamsulosin HCl (Flomax) 0.4 mg HS PO Last administered on 06/09/16 21:19; Admin Dose 0.4 MG; Start 06/08/16 at 21:00 MAXIMILIANO MCGRAW MD Jun 10, 2016 15:55
[2016-06-10 18:11] VITALS: BP 109/56; PULSE 59; RESP 18
[2016-06-10 20:00] VITALS: BP 128/61; RESP 18
[2016-06-10 20:05] LABS: ADD UMIC YES; URINE BILIRUBIN (Dip) NEGATIVE (NEGATIVE); URINE BLOOD (Dip) TRACE (NEGATIVE); URINE COLOR LT. YELLOW (YELLOW); URINE GLUCOSE (Dip) NEGATIVE (NEGATIVE); URINE KETONES (Dip) NEGATIVE (NEGATIVE); URINE LEUKOCYTE ESTERASE (Dip) 2+ (NEGATIVE); URINE NITRITE (Dip) NEGATIVE (NEGATIVE); URINE TOTAL PROTEIN (Dip) NEGATIVE (NEGATIVE); URINE UROBILINOGEN (Dip) 1.0 E.U./dL (0.1-1.0)
[2016-06-10 20:15] LABS: BACTERIA,URINE FEW; SQUAMOUS EPITHELIAL CELL,UR FEW; URINE RBCS 0-2 /HPF (0)
[2016-06-10] MEDS: ATORVASTATIN 80 MG TAB PO SCH (20:56)
[2016-06-10] MEDS: TAMSULOSIN (SR) 0.4 MG CAP PO SCH (20:56)
--- NOTE | 2016-06-10 21:09 | PN ---
DATE: 06/10/2016 SUBJECTIVE: Urinary retention. The patient does void small amount, and his postvoid residual has b een high, and he needed a straight catheterization. OBJECTIVE: VITAL SIGNS: His temperature is 97.8, pulse is 59, respirations 18, blood pressure 109/56. ABDOMEN: Soft. GENITOURINARY: The patient has been voiding, but the postvoid residual was high. In fact, today he was catheterized twice for over 400 mL. One time, the bladder scan did show 532, and when he had s traight catheterization, 400 mL drained out. The patient is already on tamsulosin and Avodart, and even with him being on both of these medications, he is not emptying his bladder well. His urine culture showing 20,000 to 30,000 colonies of Acinetobacter baumannii and also 100,000 ente rococcus pieces. The patient is on Zosyn. However, these bacteria are resistant to it. IMPRESSION: 1. Urinary retention. 2. Urinary tract infection. RECOMMENDATION: Continue to do the straight catheterization and also consider infectious disease co nsultation for the antibiotic management. Dictated By: LIZZIE RAJAN/SANCHEZ Conf#: [id number] DID#: [id number]
[2016-06-11] MEDS: FUROSEMIDE 40 MG TAB PO SCH ×2 (06:00→18:00)
[2016-06-11] MEDS: PIPER-TAZO 2.25 GM (PMX) 50 ML IVPB SCH ×4 (06:11→22:05)
[2016-06-11 08:00] VITALS: BP 142/66; RESP 21
[2016-06-11] MEDS: SALMETEROL/FLUTICASONE 250/50 INHA INH SCH ×2 (09:11→20:14)
[2016-06-11] MEDS: DUTASTERIDE 0.5 MG CAP PO SCH (09:11)
[2016-06-11] MEDS: ISOSORBIDE MONONITRATE(SR)30 MG TAB PO SCH (09:15)
[2016-06-11] MEDS: CLOPIDOGREL 75 MG TAB PO SCH (09:15)
[2016-06-11] MEDS: APIXABAN 5 MG TABLET PO SCH ×2 (09:15→20:16)
[2016-06-11] MEDS: FAMOTIDINE 20 MG TAB PO SCH (09:15)
--- NOTE | 2016-06-11 10:50 | PN ---
DATE: 06/11/2016 SUBJECTIVE: The patient is stable. No acute events overnight. No fevers, chills, nausea, vomiting . No shortness of breath. OBJECTIVE: VITAL SIGNS: Blood pressure is 142/66, respirations 21, pulse 67, temperature 98.5. I's and O's were reviewed. HEENT: Head is normocephalic. NECK: Supple. HEART: Regular rate. LUNGS: Showed diminished breath sounds at the base. ABDOMEN: Soft, nontender to palpation. No rebound or guarding. EXTREMITIES: Negative for clubbing or cyanosis. No edema. DERMATOLOGIC: No rashes. MUSCULOSKELETAL: Have no joint effusion. NEUROLOGIC: No change in exam. MEDICATIONS: The patient's medications have been reviewed. LABORATORY DATA: Labs from 06/10/2016 were reviewed. Laboratory data this morning is currently pend ing. ASSESSMENT AND PLAN: 1. Nonoliguric acute kidney injury on top of chronic kidney disease stage IIIB/IV, with a previous baseline creatinine of 1.5 mg/dL. Etiology is secondary to hemodynamics, cardiorenal syndrome. Jose Antonio al function has improved with diuretic therapy. Will continue the current treatment plan. Continue Lasix at the current dose. Follow up renal function closely. 2. Anemia of chronic disease. Continue to monitor hemoglobin and hematocrit levels. 3. Mineral bone disorder. Continue to monitor calcium and phosphorus levels. No need for phosphat e binders. 4. Chronic kidney disease stage IIIB. Etiology is multifactorial. Currently the patient's acute k idney injury is stated above. Continue the current treatment plan. 5. Acute systolic and diastolic heart failure. The patient is clinically improving. Follow up [facility] cardiology. Continue the current treatment plan. 6. Coronary artery disease with a history of [id number] myocardial infarction. Continue medic al management. 7. History of chronic obstructive pulmonary disease. Continue supplemental oxygen and nebulizer as needed. 8. Benign prostatic hypertrophy, with urinary retention. Continue intermittent catheterization. 9. Hypertension. Controlled. 10. Diabetes. Continue Accu-Cheks and insulin sliding scale. Dictated By: JOÃO ROBISON/SANCHEZ Conf#: [id number] DID#: [id number]
[2016-06-11 15:06] VITALS: BP 109/61; PULSE 72
--- NOTE | 2016-06-11 15:31 | PN ---
Date/Time of Note Date/Time of Note DATE: 06/11/16 TIME: 15:23 Assessment/Plan VTE Prophylaxis VTE Prophylaxis Intervention: other (eliquis) Lines/Catheters IV Catheter Type (from [facility]): Peripheral IV Urinary Cath still in place: No Assessment/Plan Assessment/Plan 1. Urinary retention and urinary tract infection with ACINETOBACTER BAUMANNII and ENTEROCOCCUS SPECIES, ID for antibiotics adjustment, repeated urine culture on 06/10/2016 2. Pneumonia, improving, on antibiotics 3. Congestive heart failure exacerbation. systolic, acute on chronic,diuretics 4. Gpbsl-[id number] renal insufficiency, follow up with BMP 5. Hyperkalemia. Renal failure related, resolved. 6. Atrial fibrillation. continue Eliquis. 7. Coronary artery disease. on aspirin and Plavix. 8. Pulmonary hypertension. 9. History of aortic stenosis 10. Prostate enlargement with urinary retention, follow up with urology. on Flomax 11. History of prior stroke. on aspirin and Plavix 12. Gastrointestinal prophylaxis, H2 kehinde. 13. Deep venous thrombosis prophylaxis. He is on Eliquis for his atrial fibrillation. Subjective 24 Hr Interval Summary Free Text/Dictation some cough, no respiratory distress afebrile Exam/Review of Systems Vital Signs Vitals Vital Signs Date Time Temp Pulse Resp B/P Pulse Ox O2 Delivery O2 Flow Rate FiO2 06/11/16 15:06 72 109/61 06/11/16 09:33 Nasal Cannula 2.0 06/11/16 08:00 98.5 21 90 06/10/16 17:26 28 Intake and Output 06/10/16 06/10/16 06/11/16 15:00 23:00 07:00 Intake Total 750 ml 700 ml Output Total 800 ml 750 ml Balance -50 ml -50 ml Exam Constitutional: alert, oriented, well developed Psych: nl mood/affect, no complaints Head: atraumatic, normocephalic Eyes: EOMI, PERRL, nl conjunctiva, nl lids ENMT: nl external ears & nose, nl lips & teeth, nl nasal mucosa & septum Neck: non-tender, supple Respiratory: other (scanty rhonchi) Cardiovascular: irregular rhythm, nl pulses, No S3, No S4, No bruits, No diastolic murmur, No edema, No gallop, No jugular venous distention (JVD), No regular rate and rhythm, No rub Gastrointestinal: nl liver, spleen, non-tender, soft, No ascites, No bowel sounds, No distended, No firm, No hepatomegaly, No mass , No rebound or guarding, No splenomegaly, No surgical scars, No tender Musculoskeletal: nl extremities to inspection Extremities: normal pulses Neurological: VEH[employer]LE [employer]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 YELLOW Urine Glucose NEGATIVE Urine Hemoglobin TRACE Urine Ketones NEGATIVE Urine Leukocyte Esterase 2+ H Urine Microscopic RBC 0-2 Urine Microscopic WBC >50 Urine Nitrite NEGATIVE Urine Specific [place] 1.010 Urine Squamous Epithelial Cells FEW Urine Total Protein NEGATIVE Urine Urobilinogen 1.0 E.U./dL Urine pH 7.0 Medications Medications Current Medications Ondansetron HCl (Zofran Inj) 4 mg Q6H PRN IV NAUSEA AND/OR VOMITING; Start at 13:30 Acetaminophen (Tylenol Tab) 650 mg Q6H PRN PO PAIN LEVEL 1-3 OR FEVER; Start at 13:30 Acetaminophen/ Hydrocodone Bitart (Hallam (5/325)) 1 tab Q6H PRN PO MODERATE PAIN LEVEL 4-6; Start 06/06/16 at 13:30 Morphine Sulfate (morphine) 2 mg Q4H PRN IV SEVERE PAIN LEVEL 7-10; Start 06/06 at 13:30 Docusate Sodium (Colace) 100 mg Q12H PRN PO CONSTIPATION; Start 06/06/16 at 13: 30 Magnesium Hydroxide (Milk Of Mag) 30 ml DAILY PRN PO CONSTIPATION; Start at 13:30 Sodium Biphosphate/ Sodium Phosphate (Fleet Enema) 133 ml DAILY PRN [place] CONSTIPATION; Start 06/06/16 at 13:30 Lorazepam (Ativan) 0.5 mg Q6H PRN IV ANXIETY; Start 06/06/16 at 13:30 Hydralazine HCl (Apresoline) 10 mg Q6H PRN IV ELEVATED BLOOD PRESSURE; Start at 13:30 Clonidine (Catapres) 0.1 mg Q6H PRN PO ELEVATED BLOOD PRESSURE; Start 06/06/16 at 13:30 Nitroglycerin (Nitroglycerin (Sl Tab) 0.4 Mg) 1 tab Q5M PRN SL ANGINA; Start at 13:30 Atorvastatin Calcium (Lipitor) 80 mg QHS PO Last administered on 06/10/16 20: 56; Admin Dose 80 MG; Start 06/06/16 at 21:00 Clopidogrel Bisulfate (plaVIX) 75 mg DAILY PO Last administered on 06/11/16 09 :15; Admin Dose 75 MG; Start 06/07/16 at 09:00 Dutasteride (Avodart) 0.5 mg DAILY PO Last administered on 06/11/16 09:11; Admin Dose 0.5 MG; Start 06/07/16 at 09:00 Famotidine (Pepcid) 20 mg DAILY PO Last administered on 06/11/16 09:15; Admin Dose 20 MG; Start 06/07/16 at 09:00 Isosorbide Mononitrate (Imdur) 30 mg DAILY PO Last administered on 06/11/16 09 :15; Admin Dose 30 MG; Start 06/07/16 at 09:00 Salmeterol Xinafoate/ Fluticasone (Advair 250/50 Diskus) 1 inh BID INH Last administered on 06/11/16 09:11; Admin Dose 1 INH; Start 06/06/16 at 21:00 Carvedilol 6.25 mg 6.25 mg BID PO Last administered on 06/11/16 09:15; Admin Dose 6.25 MG; Start 06/06/16 at 21:00 Piperacillin Sod/ Tazobactam Sod (Zosyn 2.25gm/ 50ml (Pmx)) 50 ml @ 100 mls/hr Q8 IVPB Last administered on 06/11/16 06:11; Admin Dose 100 MLS/HR; Start at 14:00 Apixaban (Eliquis) 2.5 mg BID PO Last administered on 06/11/16 09:15; Admin Dose 2.5 MG; Start 06/07/16 at 21:00 Tamsulosin HCl (Flomax) 0.4 mg HS PO Last administered on 06/10/16 20:56; Admin Dose 0.4 MG; Start 06/08/16 at 21:00 MAXIMILIANO MCGRAW MD Jun 11, 2016 15:31
--- NOTE | 2016-06-11 16:55 | PN ---
DATE: 06/11/2016 CARDIOLOGY FOLLOWUP SUBJECTIVE: No new cardiac event. No chest pain or pressure. ____ fatigue. MEDICATIONS: Reviewed. PHYSICAL EXAMINATION: VITAL SIGNS: Temperature 98.1, heart rate of 72, blood pressure 109/61, respiration rate of 20, sat ting 90% to 100%. HEENT: Normocephalic, atraumatic. Thin gentleman in no acute distress. CARDIOVASCULAR: Regular rate and rhythm, systolic ejection murmur. PULMONARY: With mild rhonchi, diffuse. GASTROINTESTINAL: Soft, nontender. EXTREMITIES: Positive lower extremity edema. NEUROLOGIC: Awake and alert. PSYCHIATRIC: Calm. LABORATORY: Lab history has refused to have it done today. As of yesterday, sodium was 141, potassi um 3.9, BUN of 36, creatinine 1.19. ASSESSMENT AND PLAN: 1. Non-ST elevation myocardial infarction. 2. Hypoxemia. 3. Chronic obstructive pulmonary disease. 4. Congestive heart failure. 5. Severe ischemic cardiomyopathy. 6. Aortic valve stenosis. 7. Hyperkalemia resolved. 8. Benign prostatic hypertrophy. RECOMMENDATIONS: We will continue with the current cardiac care. The patient was to follow up and get his labs done. He has in the past as well refused to have labs and be noncompliant. Will follo w up p.r.n. If the patient follows up, we can follow him as an outpatient as well. However, previo usly multiple times, he has missed an appointment. Dictated By: LUCÍA CUNHA MD AV/SANCHEZ Conf#: [id number] DID#: [id number] CC: MARIA DE JESUS ADAME MD;*End*
--- NOTE | 2016-06-11 18:19 | CONS ---
DATE OF ADMISSION: 06/06/2016 DATE OF CONSULTATION: 06/11/2016 TYPE OF CONSULTATION: Infectious Disease. REASON FOR CONSULTATION: Antibiotic management. HISTORY OF PRESENT ILLNESS: Marc Tovar is a 75-year-old male with numerous problems who comes in with palpitations and weakness and is being seen for antibiotic management. His problems include: 1. Acute respiratory failure in the past. 2. Congestive heart failure, systolic and diastolic dysfunction. 3. Chronic renal disease. 4. History of ventricular tachycardia. 5. Pulmonary hypertension. 6. Chronic obstructive pulmonary disease. 7. Aortic stenosis. 8. Essential hypertension. 9. Iron deficiency anemia. 10. BPH. 11. Dysphagia. 12. Deconditioning. 13. Noncompliance. 14. Atrial fibrillation. 15. History of stroke. 16. Coronary artery disease. 17. Low platelets. He was brought in with palpitations. When he came to the emergency room, he was quite lethargic. H is troponin was 1.9. Potassium was 6.2. The patient has had PCI with stenting in the past and left shoulder surgery in the past. We are seeing him because he has urinary retention and urinary tract infection with Acinetobacter baumannii and enterococcus species. Most recently his urine shows no growth after 24 hours. He is currently on Zosyn. In addition, his recent urine still shows 2+ leuk ocyte esterase and greater than 50 white cells per high-power field. His chest x-ray is unchanged p ulmonary edema, cardiomegaly, small right pleural effusion, prior left shoulder surgery. PAST MEDICAL HISTORY: Operations as outlined. FAMILY HISTORY: Noncontributory. SOCIAL HISTORY: He has a history of smoking in the past. Does not drink or abuse drugs. ALLERGIES: NONE TO PENICILLIN, SULFA, OR FOODS. MEDICATIONS: Per chart. REVIEW OF SYSTEMS: As per HPI. PHYSICAL EXAMINATION: GENERAL: The patient is a well-developed, well-nourished male who is somewhat altered but in no acu te distress. VITAL SIGNS: Stable. He is afebrile. SKIN: Without generalized rash. HEENT: Within normal limits. NECK: Supple. LYMPH NODES: None palpable. CHEST: Decreased breath sounds at the bases with scattered rales. HEART: Without murmur or gallop. ABDOMEN: Soft, nontender, without organosplenomegaly or masses. EXTREMITIES: Without cyanosis, clubbing, or edema. RECTAL AND GENITAL: Deferred. NEUROLOGIC: No focal neurological abnormalities. LABORATORY DATA: On admission, his white count was 12.3, H and H of 12.4 and 39.6, platelet count 1 76,000. BUN and creatinine 67/1.9, AST is 88, ALT 92, alkaline phosphatase 137. Chest x-ray as not ed showed pulmonary edema, cardiomegaly, and right pleural effusion. IMPRESSION AND PLAN: The patient was treated with Zosyn which was effective against his enterococcu s, and at the present time, his urine is no growth at 24 hours. If the urine is no growth at 48 yariel rs, I would stop all antibiotic therapy. I would not add anything. If, on the other hand, the marquis ent develops Acinetobacter baumannii, we may switch from Zosyn to colistin. I will dictate my findi ngs to the hospitalist. Dictated By: SATYA ZAIDI MD, JD/SANCHEZ Conf#: [id number] DID#: [id number]
[2016-06-11 19:42] VITALS: BP 114/56; RESP 20
[2016-06-11] MEDS: TAMSULOSIN (SR) 0.4 MG CAP PO SCH (20:16)
[2016-06-11] MEDS: ATORVASTATIN 80 MG TAB PO SCH (20:16)
[2016-06-12] MEDS: PIPER-TAZO 2.25 GM (PMX) 50 ML IVPB SCH ×2 (05:18→16:21)
[2016-06-12 05:50] LABS: BASOPHILS % 0.4 % (0.0-2.0); EOSINOPHILS # 0.3 10^3/ul (0.0-0.5); EOSINOPHILS % 2.7 % (0.0-7.0); HEMATOCRIT 35.5 % (42.0-52.0); HEMOGLOBIN 11.5 g/dl (14.0-18.0); LYMPHOCYTES # 1.4 10^3/ul (0.8-2.9); LYMPHOCYTES % 15.1 % (15.0-51.0); MEAN CORPUSCULAR HEMOGLOBIN 26.2 pg (29.0-33.0); MEAN CORPUSCULAR HGB CONC 32.4 g/dl (32.0-37.0); MEAN PLATELET VOLUME 9.9 fl (7.4-10.4); MONOCYTE # 1.3 10^3/ul (0.3-0.9); MONOCYTES % 14.1 % (0.0-11.0); NEUTROPHIL # 6.4 10^3/ul (1.6-7.5); NEUTROPHILS % 67.7 % (39.0-77.0); PLATELET COUNT 170 10^3/UL (140-440); RED BLOOD COUNT 4.38 10^6/ul (4.70-6.10); RED CELL DISTRIBUTION WIDTH 21.9 % (11.5-14.5); UNCORRECTED WBC 9.4 10^3/ul (4.8-10.8); WHITE BLOOD COUNT 9.4 10^3/ul (4.8-10.8)
[2016-06-12 05:53] LABS: POTASSIUM 4.2 mmol/L (3.5-5.1)
[2016-06-12 05:55] LABS: CONDITION 1; CREATININE 1.25 mg/dl (0.61-1.24); LH ANALYZER COMMENTS 1
[2016-06-12 05:56] LABS: CALCIUM 8.4 mg/dl (8.4-10.2)
[2016-06-12] MEDS: FUROSEMIDE 40 MG TAB PO SCH ×2 (06:00→18:44)
[2016-06-12 07:36] VITALS: BP 122/57; RESP 19
--- NOTE | 2016-06-12 09:09 | PN ---
Date/Time of Note Date/Time of Note DATE: 06/12/16 TIME: 09:07 Assessment/Plan VTE Prophylaxis VTE Prophylaxis Intervention: other Lines/Catheters [facility] Peripheral IV Urinary Cath still in place: No Assessment/Plan Chief Complaint/Hosp Course Assessment/Plan 1. Urinary retention and urinary tract infection with ACINETOBACTER BAUMANNII and ENTEROCOCCUS SPECIES, ID for antibiotics adjustment, repeated urine culture on 06/10/2016 will DC antibiotics if cultures remain negative tomorrow 2. Pneumonia, improving, on antibiotics 3. Congestive heart failure exacerbation. systolic, acute on chronic,diuretics 4. [id number] renal insufficiency, follow up with BMP 5. Hyperkalemia. Renal failure related, resolved. 6. Atrial fibrillation. continue Eliquis. 7. Coronary artery disease. on aspirin and Plavix. 8. Pulmonary hypertension. 9. History of aortic stenosis 10. Prostate enlargement with urinary retention, follow up with urology. on Flomax 11. History of prior stroke. on aspirin and Plavix 12. Gastrointestinal prophylaxis, H2 kehinde. 13. Deep venous thrombosis prophylaxis. He is on Eliquis for his atrial fibrillation. 14 deconditioning. PT eval encourage out of bed Anticipate discharge in 1-2 days If patient is ambulating can follow up with urology and cardiology as an outpatient Problems: Subjective 24 Hr Interval Summary Free Text/Dictation Patient awake alert oriented limited mobility is at bedside No events overnight Refused IV access this morning according to nursing staff Exam/Review of Systems Vital Signs Vitals Vital Signs Date Time Temp Pulse Resp B/P Pulse Ox O2 Delivery O2 Flow Rate FiO2 06/12/16 07:36 98.2 72 19 122/57 97 06/11/16 15:29 2.0 06/11/16 09:33 Nasal Cannula 06/10/16 17:26 28 Intake and Output 06/11/16 06/11/16 06/12/16 15:00 23:00 07:00 Intake Total 710 ml 850 ml Output Total 300 ml Balance 710 ml 550 ml Exam GENERAL: Elderly [place] gentleman comfortable at rest no acute distress sitting up in bed VITAL SIGNS: per chart NECK: Supple. No JVD or lymphadenopathy. CARDIAC EXAM: S1, S2. 2/6 systolic ejection murmur CHEST: clear bilaterally, No added sounds, rales or wheezes ABDOMEN: Soft, nontender. No guarding or rebound. EXTREMITIES: No cyanosis, clubbing or edema. NEUROLOGIC: Generalized weakness. No focal deficits. Results Result Diagram: 06/12/16 0505 06/12/16 0505 Results 24 hrs Laboratory Tests Test 06/12/16 05:05 Anion Gap 14 Basophils # 0.0 Basophils % 0.4 Blood Morphology Comment Blood Urea Nitrogen 36 H Calcium Level 8.4 Carbon Dioxide Level 32 H Chloride Level 101 Creatinine 1.25 H Eosinophils # 0.3 Eosinophils % 2.7 Glucose Level 101 Hematocrit 35.5 L Hemoglobin 11.5 L Lymphocytes # 1.4 Lymphocytes % 15.1 Mean Corpuscular Hemoglobin 26.2 L Mean Corpuscular Hemoglobin Concent 32.4 Mean Corpuscular Volume 81.0 L Mean Platelet Volume 9.9 Monocytes # 1.3 H Monocytes % 14.1 H Neutrophils # 6.4 Neutrophils % 67.7 Nucleated Red Blood Cells # 0.0 Nucleated Red Blood Cells % 0.0 Platelet Count 170 # Potassium Level 4.2 Red Blood Count 4.38 L Red Cell Distribution Width 21.9 H Sodium Level 143 White Blood Count 9.4 Medications Medications Current Medications Ondansetron HCl (Zofran Inj) 4 mg Q6H PRN IV NAUSEA AND/OR VOMITING; Start at 13:30 Acetaminophen (Tylenol Tab) 650 mg Q6H PRN PO PAIN LEVEL 1-3 OR FEVER; Start at 13:30 Acetaminophen/ Hydrocodone Bitart ([place] (5/325)) 1 tab Q6H PRN PO MODERATE PAIN LEVEL 4-6; Start 06/06/16 at 13:30 Morphine Sulfate (morphine) 2 mg Q4H PRN IV SEVERE PAIN LEVEL 7-10; Start 06/06 at 13:30 Docusate Sodium (Colace) 100 mg Q12H PRN PO CONSTIPATION; Start 06/06/16 at 13: 30 Magnesium Hydroxide (Milk Of Mag) 30 ml DAILY PRN PO CONSTIPATION; Start at 13:30 Sodium Biphosphate/ Sodium Phosphate (Fleet Enema) 133 ml DAILY PRN [place] CONSTIPATION; Start 06/06/16 at 13:30 Lorazepam (Ativan) 0.5 mg Q6H PRN IV ANXIETY; Start 06/06/16 at 13:30 Hydralazine HCl (Apresoline) 10 mg Q6H PRN IV ELEVATED BLOOD PRESSURE; Start at 13:30 Clonidine (Catapres) 0.1 mg Q6H PRN PO ELEVATED BLOOD PRESSURE; Start 06/06/16 at 13:30 Nitroglycerin (Nitroglycerin (Sl Tab) 0.4 Mg) 1 tab Q5M PRN SL ANGINA; Start at 13:30 Atorvastatin Calcium (Lipitor) 80 mg QHS PO Last administered on 06/11/16 20: 16; Admin Dose 80 MG; Start 06/06/16 at 21:00 Clopidogrel Bisulfate (plaVIX) 75 mg DAILY PO Last administered on 06/11/16 09 :15; Admin Dose 75 MG; Start 06/07/16 at 09:00 Dutasteride (Avodart) 0.5 mg DAILY PO Last administered on 06/11/16 09:11; Admin Dose 0.5 MG; Start 06/07/16 at 09:00 Famotidine (Pepcid) 20 mg DAILY PO Last administered on 06/11/16 09:15; Admin Dose 20 MG; Start 06/07/16 at 09:00 Isosorbide Mononitrate (Imdur) 30 mg DAILY PO Last administered on 06/11/16 09 :15; Admin Dose 30 MG; Start 06/07/16 at 09:00 Salmeterol Xinafoate/ Fluticasone (Advair 250/50 Diskus) 1 inh BID INH Last administered on 06/11/16 20:14; Admin Dose 1 INH; Start 06/06/16 at 21:00 Carvedilol 6.25 mg 6.25 mg BID PO Last administered on 06/11/16 20:15; Admin Dose 6.25 MG; Start 06/06/16 at 21:00 Piperacillin Sod/ Tazobactam Sod (Zosyn 2.25gm/ 50ml (Pmx)) 50 ml @ 100 mls/hr Q8 IVPB Last administered on 06/11/16 22:05; Admin Dose 100 MLS/HR; Start at 14:00 Apixaban (Eliquis) 2.5 mg BID PO Last administered on 06/11/16 20:16; Admin Dose 2.5 MG; Start 06/07/16 at 21:00 Tamsulosin HCl (Flomax) 0.4 mg HS PO Last administered on 06/11/16t 20:16; Admin Dose 0.4 MG; Start 06/08/16 at 21:00 [facility]UAN VEGA MD, [facility] Jun 12, 2016 09:09
[2016-06-12] MEDS: APIXABAN 5 MG TABLET PO SCH ×2 (09:31→20:09)
[2016-06-12] MEDS: DUTASTERIDE 0.5 MG CAP PO SCH (09:31)
[2016-06-12] MEDS: CLOPIDOGREL 75 MG TAB PO SCH (09:32)
[2016-06-12] MEDS: ISOSORBIDE MONONITRATE(SR)30 MG TAB PO SCH (09:32)
[2016-06-12] MEDS: FAMOTIDINE 20 MG TAB PO SCH (09:32)
[2016-06-12] MEDS: SALMETEROL/FLUTICASONE 250/50 INHA INH SCH ×2 (09:33→20:09)
--- NOTE | 2016-06-12 10:36 | CONS ---
Date/Time of Note Date/Time of Note DATE: 06/12/16 TIME: 10:36 Assessment/Plan Assessment/Plan Chief Complaint/Hosp Course D PROGRESS NOTE TOTAL ABX DAY #5 => ZOSYN 24H INTERVAL SUMMARY * VSS, No fevers, NAD * MICRO: Repeat urine cx (-) w/repeat UA (+)2+ Leuk Esterase + Pyuria WBCs >50 URINE CULTURE Final Organism 1 ENTEROCOCCUS SPECIES COLONY COUNT >100,000 CFU/ml Organism 2 ACINETOBACTER BAUMANNII COLONY COUNT 20,000 - 30,000 CFU/ml PHYSICAL EXAMINATION: GENERAL: 75 YO m resting comfortably HEENT: Unremarkable NECK: Supple, trachea midline. CHEST: Equal chest rise bilaterally, without dyspnea on observation HEART: Pulse RRR ABDOMEN: Soft EXTREMITIES: Warm SKIN: See photos ID ASSESSMENT: 75 yo M admit with: 1. SIRS vs early sepsis on admission w/leukocytosis, (+)Troponin bump 2. Complicated polymicrobial UTI on admission URINE CULTURE Final Organism 1 ENTEROCOCCUS SPECIES COLONY COUNT >100,000 CFU/ml Organism 2 ACINETOBACTER BAUMANNII COLONY COUNT 20,000 - 30,000 CFU/ml 3. Acute kidney injury 4. Chronic kidney disease stage IIIB->See renal note 5. Acute systolic, diastolic heart failure= improving 6. Coronary artery disease with history of non-STEMI=> medical management recommended 7. Acute exacerbation / chronic obstructive pulmonary disease = on HHN 8. Benign prostatic hypertrophy with urinary retention=> Intermittent catheterization put him at risk for recurrent UTI vs Prostatitis 9. Hypertension, controlled. 10. Diabetes. 11. Anemia of chronic disease. Continue to monitor H and H levels. ( )MRSA Nares -> N/A INVASIVES: ABX ALLERGY: KNDA CURRENT ABX: TOTAL ABX DAY #5 => ZOSYN => Change to Augmentin 500mg po TID today ID RECOMMENDATIONS: 1. He is currently on Zosyn w/repeat urine still shows 2+ leukocyte esterase + Pyuria WBC >50 = which may indicate resolving UTI vs at risk acute prostatitis due to bacteria + intermittent catheterization * Per Dr. Pena note: If urine cx (-) DC ABX and observe 2. Pt has multiple risk factors for recurrent UTI per (+)DM, BPH w/ intermittent cath + Troponin (+) in setting UTI * Since the DDx includes resolving UTI vs acute prostatitis -> would split the difference so to speak and treat him with Augmentin 500mg po TID to complete 10 - due to high risk co-morbidities . . Problems: Consultation Date/Type/Reason Admit Date/Time Jun 06, 2016 at 11:40 Initial Consult Date Exam/Review of Systems Vital Signs Vitals Vital Signs Date Time Temp Pulse Resp B/P Pulse Ox O2 Delivery O2 Flow Rate FiO2 06/12/16 09:56 Nasal Cannula 2.0 06/12/16 07:36 98.2 72 19 122/57 97 06/10/16 17:26 28 Intake and Output 06/11/16 06/11/16 06/12/16 15:00 23:00 07:00 Intake Total 710 ml 850 ml Output Total 300 ml Balance 710 ml 550 ml Results Result Diagram: 06/12/16 0505 06/12/16 0505 Results 24 hrs Laboratory Tests Test 06/12/16 05:05 Anion Gap 14 Basophils # 0.0 Basophils % 0.4 Blood Morphology Comment Blood Urea Nitrogen 36 H Calcium Level 8.4 Carbon Dioxide Level 32 H Chloride Level 101 Creatinine 1.25 H Eosinophils # 0.3 Eosinophils % 2.7 Glucose Level 101 Hematocrit 35.5 L Hemoglobin 11.5 L Lymphocytes # 1.4 Lymphocytes % 15.1 Mean Corpuscular Hemoglobin 26.2 L Mean Corpuscular Hemoglobin Concent 32.4 Mean Corpuscular Volume 81.0 L Mean Platelet Volume 9.9 Monocytes # 1.3 H Monocytes % 14.1 H Neutrophils # 6.4 Neutrophils % 67.7 Nucleated Red Blood Cells # 0.0 Nucleated Red Blood Cells % 0.0 Platelet Count 170 # Potassium Level 4.2 Red Blood Count 4.38 L Red Cell Distribution Width 21.9 H Sodium Level 143 White Blood Count 9.4 Medications Medications Current Medications Ondansetron HCl (Zofran Inj) 4 mg Q6H PRN IV NAUSEA AND/OR VOMITING; Start at 13:30 Acetaminophen (Tylenol Tab) 650 mg Q6H PRN PO PAIN LEVEL 1-3 OR FEVER; Start at 13:30 Acetaminophen/ Hydrocodone Bitart ([place] (5/325)) 1 tab Q6H PRN PO MODERATE PAIN LEVEL 4-6; Start 06/06/16 at 13:30 Morphine Sulfate (morphine) 2 mg Q4H PRN IV SEVERE PAIN LEVEL 7-10; Start 06/06 at 13:30 Docusate Sodium (Colace) 100 mg Q12H PRN PO CONSTIPATION; Start 06/06/16 at 13: 30 Magnesium Hydroxide (Milk Of Mag) 30 ml DAILY PRN PO CONSTIPATION; Start at 13:30 Sodium Biphosphate/ Sodium Phosphate (Fleet Enema) 133 ml DAILY PRN [place] CONSTIPATION; Start 06/06/16 at 13:30 Lorazepam (Ativan) 0.5 mg Q6H PRN IV ANXIETY; Start 06/06/16 at 13:30 Hydralazine HCl (Apresoline) 10 mg Q6H PRN IV ELEVATED BLOOD PRESSURE; Start at 13:30 Clonidine (Catapres) 0.1 mg Q6H PRN PO ELEVATED BLOOD PRESSURE; Start 06/06/16 at 13:30 Nitroglycerin (Nitroglycerin (Sl Tab) 0.4 Mg) 1 tab Q5M PRN SL ANGINA; Start at 13:30 Atorvastatin Calcium (Lipitor) 80 mg QHS PO Last administered on 06/11/16 20: 16; Admin Dose 80 MG; Start 06/06/16 at 21:00 Clopidogrel Bisulfate (plaVIX) 75 mg DAILY PO Last administered on 06/12/16 09 :32; Admin Dose 75 MG; Start 06/07/16 at 09:00 Dutasteride (Avodart) 0.5 mg DAILY PO Last administered on 06/12/16 09:31; Admin Dose 0.5 MG; Start 06/07/16 at 09:00 Famotidine (Pepcid) 20 mg DAILY PO Last administered on 06/12/16 09:32; Admin Dose 20 MG; Start 06/07/16 at 09:00 Isosorbide Mononitrate (Imdur) 30 mg DAILY PO Last administered on 06/12/16 09 :32; Admin Dose 30 MG; Start 06/07/16 at 09:00 Salmeterol Xinafoate/ Fluticasone (Advair 250/50 Diskus) 1 inh BID INH Last administered on 06/12/16 09:33; Admin Dose 1 INH; Start 06/06/16 at 21:00 Carvedilol 6.25 mg 6.25 mg BID PO Last administered on 06/12/16 09:32; Admin Dose 6.25 MG; Start 06/06/16 at 21:00 Piperacillin Sod/ Tazobactam Sod (Zosyn 2.25gm/ 50ml (Pmx)) 50 ml @ 100 mls/hr Q8 IVPB Last administered on 06/11/16 22:05; Admin Dose 100 MLS/HR; Start at 14:00 Apixaban (Eliquis) 2.5 mg BID PO Last administered on 06/12/16 09:31; Admin Dose 2.5 MG; Start 06/07/16 at 21:00 Tamsulosin HCl (Flomax) 0.4 mg HS PO Last administered on 06/11/16 20:16; Admin Dose 0.4 MG; Start 06/08/16 at 21:00 DARCIE ABBOTT NP Jun 12, 2016 10:36
--- NOTE | 2016-06-12 13:30 | PN ---
DATE: 06/12/2016 This SUBJECTIVE: The patient is stable, no acute events noted. OBJECTIVE: VITAL SIGNS: Blood pressure 132/57, respiration 19, pulse 72, temperature 98.2. HEENT: Head is normocephalic. NECK: Supple. HEART: Regular rate. LUNGS: Show diminished breath sounds at the base. ABDOMEN: Soft, nontender to palpation. No rebound or guarding. EXTREMITIES: Negative for clubbing, cyanosis, no edema. DERMATOLOGIC: No rashes. MUSCULOSKELETAL: No joint effusions. NEUROLOGIC: No change in exam. MEDICATIONS: Reviewed. LABORATORY DATA: Showed sodium 143, potassium 4.2, hematocrit 36, creatinine 1.25. White count 9.4 , hemoglobin 11.5, hematocrit 35.5, platelet count is 170. ASSESSMENT AND PLAN: 1. Nonoliguric acute kidney injury on top of chronic kidney disease stage IIIB/IV with a baseline c reatinine of 1.5 mg/dL. Etiology of acute kidney injury is secondary to hemodynamics. Renal functi ons has overall improved with diuretic therapy. Continue to monitor renal panel closely. Continue diuretics at current dose. 2. Anemia of chronic disease. Continue to monitor H and H levels. 3. Mineral bone disorder. Continue to monitor calcium and phosphorus levels. 4. Chronic kidney disease stage IIIB. Etiology is multifactorial. As stated above, the patient zamora s acute kidney injury. Continue current treatment plan. 5. Acute systolic, diastolic heart failure. The patient clinically improving. Continue medical ma nagement. 6. Coronary artery disease with history of non-STEMI. Continue current treatment plan. 7. History of chronic obstructive pulmonary disease. Continue supplemental oxygen and nebulizer. 8. Benign prostatic hypertrophy with urinary retention. Continue intermittent catheterization. 9. Hypertension, controlled. 10. Diabetes. Continue Accu-Cheks, insulin sliding scale. Dictated By: JOÃO ROBISON/SANCHEZ Conf#: [id number] DID#: [id number]
[2016-06-12 19:32] VITALS: BP 135/63; RESP 20
[2016-06-12] MEDS: TAMSULOSIN (SR) 0.4 MG CAP PO SCH (20:10)
[2016-06-12] MEDS: ATORVASTATIN 80 MG TAB PO SCH (20:10)
[2016-06-12] MEDS: AMOXICILLIN/CLAV 500 MG TAB PO SCH (21:23)
--- NOTE | 2016-06-12 23:04 | PN ---
DATE: 06/12/2016 SUBJECTIVE: Urinary retention. The patient; however, is feeling comfortable, and according to last monitoring by the nurses, he voided, and then they did do the bladder scan, but it was only 35 mL o f postvoid residual. He does have some redness in the groins, and that is being managed with the cr eam, and he is comfortable with that. is at his bedside, and she states that he wakes up at [facility] and he was crying. OBJECTIVE FINDINGS: VITAL SIGNS: Temperature is 98.2, pulse 72, respirations 19, blood pressure 122/57. ABDOMEN: Soft. The bladder is not distended. External genitalia are normal. He does have the cre am on the groin area. LABORATORY DATA: Yesterday he had on the bladder scan 75 mL and therefore no catheterization was re quired. Then another time he was incontinent and the bladder scan showed 335, straight cath 300. T hen this morning, he voided and the PVR was 35, so no straight catheterization was done. ASSESSMENT AND PLAN: Apparently from a urological standpoint, he is doing reasonably well, except f or the fact that he did have a urinary infection before, but the latest urine culture from 7, which is 2 days ago, was no growth in 48 hours. Therefore, from a urological standpoint, the kashif taylor could be discharged home, and there is no need for straight catheterization at this time. Dictated By: LIZZIE RAJAN/SANCHEZ Conf#: [id number] DID#: [id number]
[2016-06-13] MEDS: FUROSEMIDE 40 MG TAB PO SCH ×2 (05:54→17:46)
[2016-06-13] MEDS: AMOXICILLIN/CLAV 500 MG TAB PO SCH ×2 (05:54→14:16)
[2016-06-13 07:56] VITALS: BP 136/68; RESP 17
[2016-06-13] MEDS: APIXABAN 5 MG TABLET PO SCH ×2 (08:23→20:34)
[2016-06-13] MEDS: FAMOTIDINE 20 MG TAB PO SCH (08:23)
[2016-06-13] MEDS: CLOPIDOGREL 75 MG TAB PO SCH (08:23)
[2016-06-13] MEDS: DUTASTERIDE 0.5 MG CAP PO SCH (08:23)
[2016-06-13] MEDS: ISOSORBIDE MONONITRATE(SR)30 MG TAB PO SCH (08:24)
[2016-06-13] MEDS: SALMETEROL/FLUTICASONE 250/50 INHA INH SCH ×2 (08:24→20:35)
--- NOTE | 2016-06-13 13:42 | PN ---
Date/Time of Note Date/Time of Note DATE: 06/13/16 TIME: 13:38 Assessment/Plan VTE Prophylaxis VTE Prophylaxis Intervention: LMWH Lines/Catheters IV Catheter Type (from [facility]): [place] Urinary Cath still in place: No Assessment/Plan Chief Complaint/Hosp Course Assessment/Plan 1. Urinary retention and urinary tract infection with ACINETOBACTER BAUMANNII and ENTEROCOCCUS SPECIES, ID for antibiotics adjustment, repeated urine culture on 06/10/2016 cultires negative, will dc antibiotics. 2. Pneumonia, improved. 3. Congestive heart failure exacerbation. systolic, acute on chronic, diuretics as tolerated. 4. [id number] renal insufficiency, follow up with [facility], check BNP 5. Hyperkalemia. Renal failure related, resolved. 6. Atrial fibrillation. continue Eliquis. 7. Coronary artery disease. on aspirin and Plavix. 8. Pulmonary hypertension. 9. History of aortic stenosis 10. Prostate enlargement with urinary retention, follow up with urology. on Flomax 11. History of prior stroke. on aspirin and Plavix 12. Gastrointestinal prophylaxis, H2 kehinde. 13. Deep venous thrombosis prophylaxis. Eliquis. will need SNF if family agreeable. s/w input in am. Problems: Subjective 24 Hr Interval Summary Free Text/Dictation Weaker today Still declining some meds. Exam/Review of Systems Vital Signs Vitals Vital Signs Date Time Temp Pulse Resp B/P Pulse Ox O2 Delivery O2 Flow Rate FiO2 06/13/16 08:00 Nasal Cannula 1.5 06/13/16 07:56 97.8 69 17 136/68 93 06/10/16 17:26 28 Intake and Output 06/12/16 06/12/16 06/13/16 15:00 23:00 07:00 Intake Total 600 ml 720 ml Output Total 300 ml Balance 300 ml 720 ml Exam GENERAL: Elderly [place]ian gentleman comfortable at rest lying in bed. VITAL SIGNS: per chart NECK: Supple. No JVD or lymphadenopathy. CARDIAC EXAM: S1, S2. 2/6 systolic ejection murmur CHEST: clear bilaterally, No added sounds, rales or wheezes ABDOMEN: Soft, nontender. No guarding or rebound. EXTREMITIES: No cyanosis, clubbing or edema. NEUROLOGIC: Generalized weakness. Results Result Diagram: 06/12/16 0505 06/12/16 0505 Medications Medications Current Medications Ondansetron HCl (Zofran Inj) 4 mg Q6H PRN IV NAUSEA AND/OR VOMITING; Start at 13:30 Acetaminophen (Tylenol Tab) 650 mg Q6H PRN PO PAIN LEVEL 1-3 OR FEVER Last administered on 06/12/16 23:27; Admin Dose 650 MG; Start 06/06/16 at 13:30 Acetaminophen/ Hydrocodone Bitart ([place] (5/325)) 1 tab Q6H PRN PO MODERATE PAIN LEVEL 4-6; Start 06/06/16 at 13:30 Morphine Sulfate (morphine) 2 mg Q4H PRN IV SEVERE PAIN LEVEL 7-10; Start 06/06 at 13:30 Docusate Sodium (Colace) 100 mg Q12H PRN PO CONSTIPATION; Start 06/06/16 at 13: 30 Magnesium Hydroxide (Milk Of Mag) 30 ml DAILY PRN PO CONSTIPATION; Start at 13:30 Sodium Biphosphate/ Sodium Phosphate (Fleet Enema) 133 ml DAILY PRN [place] CONSTIPATION; Start 06/06/16 at 13:30 Lorazepam (Ativan) 0.5 mg Q6H PRN IV ANXIETY; Start 06/06/16 at 13:30 Hydralazine HCl (Apresoline) 10 mg Q6H PRN IV ELEVATED BLOOD PRESSURE; Start at 13:30 Clonidine (Catapres) 0.1 mg Q6H PRN PO ELEVATED BLOOD PRESSURE; Start 06/06/16 at 13:30 Nitroglycerin (Nitroglycerin (Sl Tab) 0.4 Mg) 1 tab Q5M PRN SL ANGINA; Start at 13:30 Atorvastatin Calcium (Lipitor) 80 mg QHS PO Last administered on 06/12/16 20: 10; Admin Dose 80 MG; Start 06/06/16 at 21:00 Clopidogrel Bisulfate (plaVIX) 75 mg DAILY PO Last administered on 06/13/16 08 :23; Admin Dose 75 MG; Start 06/07/16 at 09:00 Dutasteride (Avodart) 0.5 mg DAILY PO Last administered on 06/13/16 08:23; Admin Dose 0.5 MG; Start 06/07/16 at 09:00 Famotidine (Pepcid) 20 mg DAILY PO Last administered on 06/13/16 08:23; Admin Dose 20 MG; Start 06/07/16 at 09:00 Isosorbide Mononitrate (Imdur) 30 mg DAILY PO Last administered on 06/13/16 08 :24; Admin Dose 30 MG; Start 06/07/16 at 09:00 Salmeterol Xinafoate/ Fluticasone (Advair 250/50 Diskus) 1 inh BID INH Last administered on 06/13/16 08:24; Admin Dose 1 INH; Start 06/06/16 at 21:00 Carvedilol (Coreg) 6.25 mg BID PO Last administered on 06/13/16 08:23; Admin Dose 6.25 MG; Start 06/06/16 at 21:00 Apixaban (Eliquis) 2.5 mg BID PO Last administered on 06/13/16 08:23; Admin Dose 2.5 MG; Start 06/07/16 at 21:00 Tamsulosin HCl (Flomax) 0.4 mg HS PO Last administered on 06/12/16 20:10; Admin Dose 0.4 MG; Start 06/08/16 at 21:00 Amoxicillin/ Clavulanate Potassium (Augmentin) 500 mg Q8 PO ; Start 06/12/16 at 22:00; Stop 06/18/16 at 21:59 DEJUAN VEGA MD, [facility] Jun 13, 2016 13:42
--- NOTE | 2016-06-13 13:44 | EN ---
Date/Time of Note Date/Time of Note DATE: 06/13/16 TIME: 13:43 Event Note Medicine Medicine Event Note dc antibiotics if ok with ID. DEJUAN VEGA MD, [facility] Jun 13, 2016 13:44
[2016-06-13 15:47] LABS: BASOPHILS % 0.1 % (0.0-2.0); EOSINOPHILS # 0.2 10^3/ul (0.0-0.5); EOSINOPHILS % 1.5 % (0.0-7.0); HEMOGLOBIN 10.8 g/dl (14.0-18.0); LYMPHOCYTES # 1.2 10^3/ul (0.8-2.9); LYMPHOCYTES % 10.9 % (15.0-51.0); MEAN CORPUSCULAR HEMOGLOBIN 25.7 pg (29.0-33.0); MEAN CORPUSCULAR HGB CONC 31.9 g/dl (32.0-37.0); MEAN CORPUSCULAR VOLUME 80.4 fl (82.0-101.0); MEAN PLATELET VOLUME 10.4 fl (7.4-10.4); MONOCYTE # 0.9 10^3/ul (0.3-0.9); MONOCYTES % 8.7 % (0.0-11.0); NEUTROPHIL # 8.4 10^3/ul (1.6-7.5); NEUTROPHILS % 78.8 % (39.0-77.0); PLATELET COUNT 174 10^3/UL (140-440); RED BLOOD COUNT 4.22 10^6/ul (4.70-6.10); RED CELL DISTRIBUTION WIDTH 21.8 % (11.5-14.5); UNCORRECTED WBC 10.7 10^3/ul (4.8-10.8); WHITE BLOOD COUNT 10.7 10^3/ul (4.8-10.8)
[2016-06-13 15:55] LABS: CONDITION 1; LH ANALYZER COMMENTS 1
[2016-06-13 15:57] LABS: POTASSIUM 4.1 mmol/L (3.5-5.1)
[2016-06-13 15:59] LABS: CREATININE 1.18 mg/dl (0.61-1.24)
[2016-06-13 16:01] LABS: CALCIUM 8.4 mg/dl (8.4-10.2)
--- NOTE | 2016-06-13 16:15 | PN ---
DATE: 06/13/2016 SUBJECTIVE: The patient is stable, no acute events overnight. No hemoptysis, hematemesis or hemato chezia. OBJECTIVE: VITAL SIGNS: Blood pressure 136/68, respirations 17, pulse 69, temperature 97.8. HEENT: Head is normocephalic. NECK: Supple. HEART: Regular rate. LUNGS: Show diminished breath sounds at base. ABDOMEN: Soft, nontender to palpation without rebound or guarding. EXTREMITIES: Negative for clubbing, cyanosis, no edema. DERMATOLOGIC: No rashes. MUSCULOSKELETAL: No joint effusions. NEUROLOGIC: No change in exam. MEDICATIONS: The patient's medications have been reviewed. LABORATORY DATA: Currently pending. ASSESSMENT AND PLAN: 1. Nonoliguric acute kidney injury on top of chronic kidney disease stage IIIB/IV with a baseline c reatinine of 1.5 mg/dL. Etiology of acute kidney injury is secondary to hemodynamics. Renal functi on is improved. Continue to monitor closely on diuretic therapy. 2. Anemia of chronic disease. Continue to monitor hemoglobin and hematocrit levels. 3. Mineral bone disorder. Continue to monitor calcium and phosphorus levels. 4. Chronic kidney disease, stage IIIB. Etiology is multifactorial. Continue current treatment jr n as stated above. Continue to treat acute kidney injury as stated above. 5. Acute systolic, diastolic heart failure, clinically improving. Continue medical management. 6. Chronic disease, history of non-STEMI, Continue medical management. 7. History of chronic obstructive pulmonary disease. Continue current treatment plan. 8. Benign prostatic hypertrophy with urinary retention. Continue intermittent catheterization. 9. Hypertension, controlled. 10. Diabetes. Continue Accu-Cheks, insulin sliding scale. 11. Urinary tract infection. Continue current antibiotic regimen. Dictated By: JOÃO ROBISON/SANCHEZ Conf#: [id number] DID#: [id number]
--- NOTE | 2016-06-13 17:35 | CONS ---
Date/Time of Note Date/Time of Note DATE: 06/13/16 TIME: 17:33 Assessment/Plan Assessment/Plan Chief Complaint/Hosp Course D PROGRESS NOTE TOTAL ABX DAY #6 => ZOSYN DC'd -> Tapered to Augmentin 24H INTERVAL SUMMARY * Patient much improved -- DC planning in process * VSS, No fevers, NAD * MICRO: Repeat urine cx (-) w/repeat UA (+)2+ Leuk Esterase + Pyuria WBCs >50 URINE CULTURE Final Organism 1 ENTEROCOCCUS SPECIES COLONY COUNT >100,000 CFU/ml Organism 2 ACINETOBACTER BAUMANNII COLONY COUNT 20,000 - 30,000 CFU/ml PHYSICAL EXAMINATION: GENERAL: 75 YO m resting comfortably HEENT: Unremarkable NECK: Supple, trachea midline. CHEST: Equal chest rise bilaterally, without dyspnea on observation HEART: Pulse RRR ABDOMEN: Soft EXTREMITIES: Warm SKIN: See photos ID ASSESSMENT: 75 yo M admit with: 1. SIRS vs early sepsis on admission w/leukocytosis, (+)Troponin bump 2. Complicated polymicrobial UTI on admission URINE CULTURE Final Organism 1 ENTEROCOCCUS SPECIES COLONY COUNT >100,000 CFU/ml Organism 2 ACINETOBACTER BAUMANNII COLONY COUNT 20,000 - 30,000 CFU/ml 3. Acute kidney injury 4. Chronic kidney disease stage IIIB->See renal note 5. Acute systolic, diastolic heart failure= improving 6. Coronary artery disease with history of non-STEMI=> medical management recommended 7. Acute exacerbation / chronic obstructive pulmonary disease = on HHN 8. Benign prostatic hypertrophy with urinary retention=> Intermittent catheterization put him at risk for recurrent UTI vs Prostatitis 9. Hypertension, controlled. 10. Diabetes. 11. Anemia of chronic disease. Continue to monitor H and H levels. ( )MRSA Nares -> N/A INVASIVES: ABX ALLERGY: KNDA CURRENT ABX: TOTAL ABX DAY #6 => ZOSYN DC'd=> Change to Augmentin 500mg po TID ID RECOMMENDATIONS: 1. Patient is much improved -- consultants not concerned about residual pyuria UA => DC ABX and observe how he tolerates 2. DC planning OFF ABX . . Problems: Consultation Date/Type/Reason Admit Date/Time Jun 06, 2016 at 11:40 Exam/Review of Systems Vital Signs Vitals Vital Signs Date Time Temp Pulse Resp B/P Pulse Ox O2 Delivery O2 Flow Rate FiO2 06/13/16 08:30 98 1.5 06/13/16 08:30 Nasal Cannula 06/13/16 07:56 97.8 69 17 136/68 06/10/16 17:26 28 Intake and Output 06/12/16 06/12/16 06/13/16 15:00 23:00 07:00 Intake Total 600 ml 720 ml Output Total 300 ml Balance 300 ml 720 ml Results Result Diagram: 06/13/16 1516 06/13/16 1516 Results 24 hrs Laboratory Tests Test 06/13/16 15:16 Anion Gap 11 Basophils # 0.0 Basophils % 0.1 Blood Morphology Comment Blood Urea Nitrogen 31 H Calcium Level 8.4 Carbon Dioxide Level 31 Chloride Level 103 Creatinine 1.18 Eosinophils # 0.2 Eosinophils % 1.5 Glucose Level 135 Hematocrit 34.0 L Hemoglobin 10.8 L Lymphocytes # 1.2 Lymphocytes % 10.9 L Mean Corpuscular Hemoglobin 25.7 L Mean Corpuscular Hemoglobin Concent 31.9 L Mean Corpuscular Volume 80.4 L Mean Platelet Volume 10.4 Monocytes # 0.9 Monocytes % 8.7 Neutrophils # 8.4 H Neutrophils % 78.8 H Nucleated Red Blood Cells # 0.0 Nucleated Red Blood Cells % 0.0 Platelet Count 174 Potassium Level 4.1 Red Blood Count 4.22 L Red Cell Distribution Width 21.8 H Sodium Level 141 White Blood Count 10.7 Medications Medications Current Medications Ondansetron HCl (Zofran Inj) 4 mg Q6H PRN IV NAUSEA AND/OR VOMITING; Start at 13:30 Acetaminophen (Tylenol Tab) 650 mg Q6H PRN PO PAIN LEVEL 1-3 OR FEVER Last administered on 06/12/16t 23:27; Admin Dose 650 MG; Start 06/06/16 at 13:30 Acetaminophen/ Hydrocodone Bitart ([place] (5/325)) 1 tab Q6H PRN PO MODERATE PAIN LEVEL 4-6; Start 06/06/16 at 13:30 Morphine Sulfate (morphine) 2 mg Q4H PRN IV SEVERE PAIN LEVEL 7-10; Start 06/06 at 13:30 Docusate Sodium (Colace) 100 mg Q12H PRN PO CONSTIPATION; Start 06/06/16 at 13: 30 Magnesium Hydroxide (Milk Of Mag) 30 ml DAILY PRN PO CONSTIPATION; Start at 13:30 Sodium Biphosphate/ Sodium Phosphate (Fleet Enema) 133 ml DAILY PRN [place] CONSTIPATION; Start 06/06/16 at 13:30 Lorazepam (Ativan) 0.5 mg Q6H PRN IV ANXIETY; Start 06/06/16 at 13:30 Hydralazine HCl (Apresoline) 10 mg Q6H PRN IV ELEVATED BLOOD PRESSURE; Start at 13:30 Clonidine (Catapres) 0.1 mg Q6H PRN PO ELEVATED BLOOD PRESSURE; Start 06/06/16 at 13:30 Nitroglycerin (Nitroglycerin (Sl Tab) 0.4 Mg) 1 tab Q5M PRN SL ANGINA; Start at 13:30 Atorvastatin Calcium (Lipitor) 80 mg QHS PO Last administered on 06/12/16 20: 10; Admin Dose 80 MG; Start 06/06/16 at 21:00 Clopidogrel Bisulfate (plaVIX) 75 mg DAILY PO Last administered on 06/13/16 08 :23; Admin Dose 75 MG; Start 06/07/16 at 09:00 Dutasteride (Avodart) 0.5 mg DAILY PO Last administered on 06/13/16 08:23; Admin Dose 0.5 MG; Start 06/07/16 at 09:00 Famotidine (Pepcid) 20 mg DAILY PO Last administered on 06/13/16 08:23; Admin Dose 20 MG; Start 06/07/16 at 09:00 Isosorbide Mononitrate (Imdur) 30 mg DAILY PO Last administered on 06/13/16 08 :24; Admin Dose 30 MG; Start 06/07/16 at 09:00 Salmeterol Xinafoate/ Fluticasone (Advair 250/50 Diskus) 1 inh BID INH Last administered on 06/13/16 08:24; Admin Dose 1 INH; Start 06/06/16 at 21:00 Carvedilol (Coreg) 6.25 mg BID PO Last administered on 06/13/16 08:23; Admin Dose 6.25 MG; Start 06/06/16 at 21:00 Apixaban (Eliquis) 2.5 mg BID PO Last administered on 06/13/16 08:23; Admin Dose 2.5 MG; Start 06/07/16 at 21:00 Tamsulosin HCl (Flomax) 0.4 mg HS PO Last administered on 06/12/16 20:10; Admin Dose 0.4 MG; Start 06/08/16 at 21:00 Amoxicillin/ Clavulanate Potassium (Augmentin) 500 mg Q8 PO Last administered on 06/13/16 14:16; Admin Dose 500 MG; Start 06/12/16 at 22:00; Stop 06/18/16 at 21:59 DARCIE ABBOTT NP Jun 13, 2016 17:35
[2016-06-13 20:16] VITALS: BP 132/61; RESP 18
[2016-06-13] MEDS: ATORVASTATIN 80 MG TAB PO SCH (20:34)
[2016-06-13] MEDS: TAMSULOSIN (SR) 0.4 MG CAP PO SCH (20:35)
--- NOTE | 2016-06-13 20:37 | PN ---
DATE: 06/13/2016 SUBJECTIVE: Urinary retention. The patient has been voiding, and he himself appeared to be comfort able. However, his who was at bedside, she is always complaining that he is always crying. Th e patient states that he is urinating well. According to the nurse's record, he does urinate well, and his postvoid residual has been about 200 mL. The patient otherwise is comfortable. LABORATORY DATA: His CBC shows a white count of 10.7, hemoglobin 10.8, hematocrit 34.0. BUN is 31, creatinine 1.18, sodium 141, potassium 4.1, chloride 103, CO2 of 31. IMPRESSION: High postvoid residual but no urinary retention. PLAN: Continue monitoring him and basically continue the tamsulosin and also the Avodart, and as lo ng as his postvoid residual is less than 300 mL, we will just watch him and do not catheterize him. Urine culture is no growth after 48 hours. Dictated By: LIZZIE RAJAN/SANCHEZ Conf#: [id number] DID#: [id number]
[2016-06-14] MEDS: FUROSEMIDE 40 MG TAB PO SCH ×2 (05:27→17:44)
[2016-06-14 08:21] VITALS: BP 119/61; RESP 20
[2016-06-14] MEDS: FAMOTIDINE 20 MG TAB PO SCH (09:10)
[2016-06-14] MEDS: SALMETEROL/FLUTICASONE 250/50 INHA INH SCH ×2 (09:10→20:39)
[2016-06-14] MEDS: CLOPIDOGREL 75 MG TAB PO SCH (09:11)
[2016-06-14] MEDS: ISOSORBIDE MONONITRATE(SR)30 MG TAB PO SCH (09:11)
[2016-06-14] MEDS: DUTASTERIDE 0.5 MG CAP PO SCH (09:11)
[2016-06-14] MEDS: APIXABAN 5 MG TABLET PO SCH ×2 (09:11→20:39)
--- NOTE | 2016-06-14 10:59 | PN ---
DATE: 06/14/2016 SUBJECTIVE: The patient is stable, no acute events overnight. No fevers, chills, nausea, vomiting. OBJECTIVE: VITAL SIGNS: Blood pressure 119/61, respirations 20, pulse 71, temperature 98.1. I's and O's: Reviewed. HEENT: Head is normocephalic. NECK: Supple. HEART: Regular rate. LUNGS: Show diminished breath sounds at base. ABDOMEN: Soft, nontender to palpation without rebound or guarding. EXTREMITIES: Negative for clubbing, cyanosis, no edema. DERMATOLOGIC: No rashes. MUSCULOSKELETAL: No joint effusions. NEUROLOGIC: No change in exam. MEDICATIONS: The patient's medications have been reviewed. LABORATORY DATA FROM 06/13/2016: Shows sodium 141, potassium 4.1, BUN 31, creatinine 1.18. White c ount 10.7, hemoglobin 10.8, hematocrit 34.0, platelet count is 174. ASSESSMENT AND PLAN: 1. Nonoliguric acute kidney injury on top of chronic kidney disease, stage IIIB/IV with previous ba seline creatinine of 1.5 mg/dL. Etiology of acute kidney injury is secondary to hemodynamics, cardi orenal syndrome. The patient's renal function is stabilized on diuretic therapy. We will continue to monitor. 2. Anemia of chronic disease. Continue to monitor hemoglobin and hematocrit levels. 3. Mineral bone disorder. Continue to monitor calcium and phosphorus levels. No need for phosphat e binders. 4. Chronic kidney disease, stage IIIB. Etiology is multifactorial. Continue current treatment jr n. This patient's acute kidney injury appears to be resolving. Continue disease factor modificatio n. 5. Acute systolic, diastolic heart failure, clinically improving. Continue current treatment with medical management. Follow up with cardiology. 6. Coronary artery disease, history of non-STEMI. Continue current treatment plan. 7. History of chronic obstructive pulmonary disease. The patient is stable. Continue nebulizers a s needed, supplemental oxygen. 8. Benign prostatic hypertrophy with urinary retention. Continue current medical management. Foll ow up with urology. 9. Hypertension, controlled. 10. Diabetes. Continue Accu-Cheks and sliding scale. 11. Urinary tract infection. The patient is completing antibiotic course. Dictated By: JOÃO ROBISON/SANCHEZ Conf#: [id number] DID#: [id number]
--- NOTE | 2016-06-14 13:52 | PN ---
DATE: 06/14/2016 INFECTIOUS DISEASE PROGRESS NOTE SUBJECTIVE: No acute events. The patient is awake, lying comfortably in bed. He is afebrile. LABORATORY DATA: No labs this morning. PHYSICAL EXAMINATION: GENERAL: Fragile, elderly man who is in no distress. HEENT: Head atraumatic, normocephalic. NECK: Supple. CHEST: Rise symmetrical. Breath sounds clear. HEART: S1, S2. ABDOMEN: Soft, bowel sounds present. EXTREMITIES: Without cyanosis. ASSESSMENT: 1. Status post systemic inflammatory response syndrome. 2. Status post urinary tract infection. 3. Urinary retention, urology on case. 4. Chronic kidney disease. 5. Diabetes, blood sugars below 180. PLAN: Remains stable off antibiotics. Continue present care. Pending discharge planning. Follow urology recommendations. Dictated By: MOOSE COLON MARINE PIPE WELDER for SATYA DUNBAR/SANCHEZ Conf#: [id number] DID#: [id number]
--- NOTE | 2016-06-14 16:17 | PN ---
Date/Time of Note Date/Time of Note DATE: 06/14/16 TIME: 16:13 Assessment/Plan VTE Prophylaxis VTE Prophylaxis Intervention: LMWH Lines/Catheters IV [facility] Sal[facility] Lock Urinary Cath still in place: No Assessment/Plan Assessment/Plan 1. Urinary retention and urinary tract infection with ACINETOBACTER BAUMANNII and ENTEROCOCCUS SPECIES, negative culture on repeated cuture on 06/10/2016. antibiotics is stopped 2. Pneumonia, improved 3. Congestive heart failure exacerbation. systolic, acute on chronic,diuretics 4. Prmer-rz-cykugws renal insufficiency, follow up with BMP 5. Hyperkalemia. Renal failure related, resolved. 6. Atrial fibrillation. continue Eliquis. 7. Coronary artery disease. on aspirin and Plavix. 8. Pulmonary hypertension. 9. History of aortic stenosis 10. Prostate enlargement with urinary retention, follow up with urology. on Flomax and avodart 11. History of prior stroke. on aspirin and Plavix 12. Gastrointestinal prophylaxis, H2 kehinde. 13. Deep venous thrombosis prophylaxis. He is on Eliquis for his atrial fibrillation. 14. D/C planning Subjective 24 Hr Interval Summary Free Text/Dictation afebrile. some suprapubic abdominal pain Exam/Review of Systems Vital Signs Vitals Vital Signs Date Time Temp Pulse Resp B/P Pulse Ox O2 Delivery O2 Flow Rate FiO2 06/14/16 08:21 98.1 71 20 119/61 98 06/14/16 04:51 1.5 06/13/16 20:00 Nasal Cannula 06/10/16 17:26 28 Intake and Output 06/13/16 06/13/16 06/14/16 15:00 23:00 07:00 Intake Total 640 ml 120 ml Output Total 600 ml Balance 640 ml -480 ml Exam Constitutional: alert, oriented, well developed Psych: nl mood/affect, no complaints Head: atraumatic, normocephalic Eyes: EOMI, PERRL, nl conjunctiva, nl lids, nl sclera ENMT: mucosa pink and moist, nl external ears & nose, nl lips & teeth, nl nasal mucosa & septum Neck: non-tender, supple Respiratory: clear to auscultation, normal air movement, No congested cough, No crackles/rales, No diminished breath sounds, No intercostal retraction, No labored breathing, No respirations, No tactile fremitus, No wheezing Cardiovascular: nl pulses, regular rate and rhythm, No S3, No S4, No bruits, No diastolic murmur, No edema, No gallop, No irregular rhythm, No jugular venous distention (JVD), No murmurs/extra sounds, No rub, No systolic murmur Gastrointestinal: nl liver, spleen, soft, No ascites, No bowel sounds, No distended, No firm, No hepatomegaly, No mass , No rebound or guarding, No splenomegaly, No surgical scars Musculoskeletal: nl extremities to inspection Extremities: normal pulses, No calf tenderness, No clubbing, No cyanosis, No edema, No palpable cord, No pitting pedal edema, No tenderness 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, nl mental status, nl speech, nl strength Skin: nl turgor, rash or lesions Lymph: nl lymph nodes Results Result Diagram: 06/13/16 1516 06/13/16 1516 Medications Medications Current Medications Ondansetron HCl (Zofran Inj) 4 mg Q6H PRN IV NAUSEA AND/OR VOMITING Last administered on 06/13/16 18:58; Admin Dose 4 MG; Start 06/06/16 at 13:30 Acetaminophen (Tylenol Tab) 650 mg Q6H PRN PO PAIN LEVEL 1-3 OR FEVER Last administered on 06/12/16 23:27; Admin Dose 650 MG; Start 06/06/16 at 13:30 Acetaminophen/ Hydrocodone Bitart ([place] (5/325)) 1 tab Q6H PRN PO MODERATE PAIN LEVEL 4-6; Start 06/06/16 at 13:30 Morphine Sulfate (morphine) 2 mg Q4H PRN IV SEVERE PAIN LEVEL 7-10; Start 06/06 at 13:30 Docusate Sodium (Colace) 100 mg Q12H PRN PO CONSTIPATION; Start 06/06/16 at 13: 30 Magnesium Hydroxide (Milk Of Mag) 30 ml DAILY PRN PO CONSTIPATION; Start at 13:30 Sodium Biphosphate/ Sodium Phosphate (Fleet Enema) 133 ml DAILY PRN [place] CONSTIPATION; Start 06/06/16 at 13:30 Lorazepam (Ativan) 0.5 mg Q6H PRN IV ANXIETY; Start 06/06/16 at 13:30 Hydralazine HCl (Apresoline) 10 mg Q6H PRN IV ELEVATED BLOOD PRESSURE; Start at 13:30 Clonidine (Catapres) 0.1 mg Q6H PRN PO ELEVATED BLOOD PRESSURE; Start 06/06/16 at 13:30 Nitroglycerin (Nitroglycerin (Sl Tab) 0.4 Mg) 1 tab Q5M PRN SL ANGINA; Start at 13:30 Atorvastatin Calcium (Lipitor) 80 mg QHS PO Last administered on 06/13/16 20: 34; Admin Dose 80 MG; Start 06/06/16 at 21:00 Clopidogrel Bisulfate (plaVIX) 75 mg DAILY PO Last administered on 06/14/16 09 :11; Admin Dose 75 MG; Start 06/07/16 at 09:00 Dutasteride (Avodart) 0.5 mg DAILY PO Last administered on 06/14/16 09:11; Admin Dose 0.5 MG; Start 06/07/16 at 09:00 Famotidine (Pepcid) 20 mg DAILY PO Last administered on 06/14/16 09:10; Admin Dose 20 MG; Start 06/07/16 at 09:00 Isosorbide Mononitrate (Imdur) 30 mg DAILY PO Last administered on 06/14/16 09 :11; Admin Dose 30 MG; Start 06/07/16 at 09:00 Salmeterol Xinafoate/ Fluticasone (Advair 250/50 Diskus) 1 inh BID INH Last administered on 06/14/16 09:10; Admin Dose 1 INH; Start 06/06/16 at 21:00 Carvedilol (Coreg) 6.25 mg BID PO Last administered on 06/14/16 09:12; Admin Dose 6.25 MG; Start 06/06/16 at 21:00 Apixaban (Eliquis) 2.5 mg BID PO Last administered on 06/14/16 09:11; Admin Dose 2.5 MG; Start 06/07/16 at 21:00 Tamsulosin HCl (Flomax) 0.4 mg HS PO Last administered on 06/13/16 20:35; Admin Dose 0.4 MG; Start 06/08/16 at 21:00 MAXIMILIANO MCGRAW MD Jun 14, 2016 16:16
--- NOTE | 2016-06-14 18:17 | PN ---
DATE: 06/14/2016 CARDIOLOGY FOLLOWUP SUBJECTIVE: Discussed with the staff, discussed with his . The patient with no chest pain or p ressure, denies PND, orthopnea to me. Complained of mild lower abdominal discomfort though. MEDICATIONS: Reviewed. PHYSICAL EXAMINATION: VITAL SIGNS: Temperature 98.1, heart rate of 72, blood pressure 119/61, respiration rate of 20, sat urating 98%. HEENT: Normocephalic, atraumatic. Appears to be an elderly gentleman. Pupils are equal. CARDIOVASCULAR: Tachycardic. PULMONARY: With minimal rhonchi at the base. GASTROINTESTINAL: Soft, nontender. EXTREMITIES: With no significant lower extremity edema. NEUROLOGIC: Awake, responds appropriately. LABORATORY: Most recent one shows sodium 141, potassium 4.1, BUN 31, creatinine 1.18, glucose of 13 5. ASSESSMENT AND PLAN: 1. Non-ST elevation myocardial infarction. 2. Hypoxemia/chronic obstructive pulmonary disease, currently improved. 2. Congestive heart failure, acute on chronic, secondary to severe left ventricular dysfunction and valvular heart disease. 3. Severe ischemic cardiomyopathy. 4. Aortic stenosis. 5. Electrolyte abnormality, hyperkalemia. 6. Benign prostatic hypertrophy. RECOMMENDATIONS: We will continue with the current cardiac care. Off all angiotensin receptor bloc kers and angiotensin converting enzymes due to hyperkalemia and renal failure. Medical therapy at is point because of paroxysmal atrial fibrillation. He is still on Eliquis which will be continued . Dictated By: LUCÍA MARQUES/SANCHEZ Conf#: [id number] DID#: [id number]
[2016-06-14 20:00] VITALS: BP 114/59; RESP 18
[2016-06-14] MEDS: TAMSULOSIN (SR) 0.4 MG CAP PO SCH (20:39)
[2016-06-14] MEDS: ATORVASTATIN 80 MG TAB PO SCH (20:39)
[2016-06-15] MEDS: FUROSEMIDE 40 MG TAB PO SCH ×2 (05:54→17:13)
[2016-06-15 07:33] VITALS: BP 126/65; RESP 18
[2016-06-15] MEDS: SALMETEROL/FLUTICASONE 250/50 INHA INH SCH ×2 (09:33→21:44)
[2016-06-15] MEDS: CLOPIDOGREL 75 MG TAB PO SCH (09:35)
[2016-06-15] MEDS: ISOSORBIDE MONONITRATE(SR)30 MG TAB PO SCH (09:35)
[2016-06-15] MEDS: APIXABAN 5 MG TABLET PO SCH ×2 (09:37→21:42)
[2016-06-15] MEDS: FAMOTIDINE 20 MG TAB PO SCH (09:45)
[2016-06-15] MEDS: DUTASTERIDE 0.5 MG CAP PO SCH (09:48)
--- NOTE | 2016-06-15 12:06 | PN ---
DATE: 06/15/2016 SUBJECTIVE: The patient is stable, no acute events overnight. No fevers, chills, nausea, vomiting. No shortness of breath. OBJECTIVE: VITAL SIGNS: Blood pressure is 126/67, respirations 18, pulse 75, temperature 97.6. HEENT: Head is normocephalic. NECK: Supple. HEART: Regular rate. LUNGS: Show diminished breath sounds at bases. ABDOMEN: Soft, nontender to palpation. No rebound or guarding. EXTREMITIES: Negative for clubbing, cyanosis. No edema. DERMATOLOGIC: No rashes. MUSCULOSKELETAL: No joint effusions. NEUROLOGIC: No change in exam. MEDICATIONS: The patient's medications have been reviewed. LABORATORY DATA: Has been reviewed. No new labs. ASSESSMENT AND PLAN: 1. Nonoliguric acute kidney injury on top of chronic kidney disease stage IIIB/IV, with previous ba seline creatinine of 1.5 mg/dL. Etiology of acute kidney injury secondary to hemodynamics, cardiore nal syndrome. The patient's renal function has been improving. Continue diuretic therapy. 2. Anemia of chronic disease. Continue to monitor hemoglobin and hematocrit levels. 3. Mineral bone disorder. Continue to monitor calcium and phosphorus levels. No need for phosphate binders. 4. Chronic kidney disease, stage IIIB. Etiology is multifactorial. Continue current treatment jr n. Continue treating acute kidney injury as stated above. 5. Acute systolic, diastolic heart failure, improving. Continue current medical management. 6. Coronary artery disease, history of non-ST elevation myocardial infarction. Continue current me dical management. 7. History of chronic obstructive pulmonary disease, stable. Continue nebulizers. 8. Benign prostatic hypertrophy with urinary retention. Continue current treatment plan. Follow u p with urology. 9. Urinary tract infection. The patient is completing antibiotic course. 10. Hypertension, controlled. 11. Diabetes. Continue Accu-Cheks, insulin sliding scale. Dictated By: JOÃO ROBISON/NTS Conf#: [id number] DID#: [id number]
--- NOTE | 2016-06-15 15:53 | DS ---
Date/Time of Note Date/Time of Note DATE: 06/15/16 TIME: 15:44 Discharge Summary Admission/Discharge Info Admit Date/Time Jun 06, 2016 at 11:40 Discharge Date/Time Final Diagnosis 1. Urinary retention and urinary tract infection with ACINETOBACTER BAUMANNII and ENTEROCOCCUS SPECIES, treated, negative culture on repeated cuture on 2016. no further antibiotics treatment 2. Pneumonia, treated, stable 3. Congestive heart failure exacerbation. systolic, acute on chronic, improved 4. Ihpcv-or-etswpdo renal insufficiency, follow up with BMP 5. Hyperkalemia. Renal failure related, resolved. 6. Atrial fibrillation. continue Eliquis. 7. Coronary artery disease. on aspirin and Plavix. 8. Pulmonary hypertension. 9. History of aortic stenosis 10. Prostate enlargement with urinary retention, follow up with urology. on Flomax and avodart 11. History of prior stroke. on aspirin and Plavix Hospital Course A 75-year-old male with past medical history based on records of acute respiratory failure in the past, CHF, systolic and diastolic dysfunction, chronic kidney disease, prior V-tach, pulmonary hypertension, COPD, mild to moderate aortic stenosis, essential hypertension, iron deficiency anemia, BPH, dysphasia and deconditioning, noncompliance with medication from the past, AFib , prior stroke, coronary artery disease and low platelets. He was brought in today by paramedics because of some complaints of palpitations, most of the information obtained from the ER documentation. The patient is presently lethargic and unable to provide a full HPI or review of systems. Apparently he was also having some shortness of breath and the family became concerned and decided to call EMS. When he came in today, he was found with elevated troponin of 1.9 and his potassium was also elevated at 6.2. He was given a DuoNeb treatment and Lasix treatment in the ER and also aspirin as well. The patient was last here at our hospital from 04/04/2016 to 04/15/2016 for respiratory failure and CHF exacerbation at that time. He also spent about 12 days in rehabilitation from 04/15/2016 to 04/27/2016 for recovery. CXR on admission indicated pulmonary congestion. Patient was treated with more diuretcs for CHF exacerbation, he was also on antibiotics for pneumonia. Shortness of breath and cough gradually improved. Patient had urinary retention , that was improved with putting him back on flomax and adovart. He was seen by Dr. Vaughn for cardiology and Dr. Quiñones for urology. He came in with BUN/Cr 67/1.92 that improves to 31/1.18 on 06/15/2016. H had Urinary retention and urinary tract infection with ACINETOBACTER BAUMANNII and ENTEROCOCCUS SPECIES, treated, negative culture on repeated cuture on 06/10/2016. no further antibiotics treatment Home Meds Active Scripts Tamsulosin Hcl* (Flomax*) 0.4 Mg Cap.er.24h, 0.4 MG PO HS for 30 Days, CAP Prov:ELIJAH BALDWIN. 12/25/15 Reported Medications Apixaban* (Eliquis*) 2.5 Mg Tablet, 2.5 MG PO BID, TAB 06/06/16 Salmeterol Xinaf/Fluticasone* (Advair*) 250-50 Diskus Inhaler, 1 INH INHALATION BID, #1 INHALER 06/06/16 Lidocaine (Lidoderm) 1 Each Adh..patch, 1 EACH TP DAILY 06/06/16 Metoprolol Succinate* (Toprol XL*) 50 Mg Tab.er.24h, 50 MG PO BID, #30 TAB 06/06/16 Isosorbide Mononitrate* (Isosorbide Mononitrate*) 30 Mg Tab.er.24h, 30 MG PO DAILY, TAB 06/06/16 Furosemide* (Lasix*) 20 Mg Tablet, 20 MG PO DAILY, TAB 06/06/16 Budesonide-Formoterol Fumarate* (Symbicort*) 160-4.5 Hfa.aer.ad, 2 PUFF INHALATION BID, #1 EACH 04/04/16 Famotidine* (Famotidine*) 20 Mg Tablet, 20 MG PO DAILY, #30 TAB 04/04/16 Nitroglycerin* (Nitrostat*) 0.4 Mg Tab.subl, 0.4 MG SL Q5MIN Y for CHEST PAIN, BOTTLE 01/20/16 Dutasteride* (Avodart*) 0.5 Mg Capsule, 0.5 MG PO DAILY, CAP 01/20/16 Tiotropium Foster* (Spiriva*) 18 Mcg Cap.w.dev, 1 CAP INHALATION DAILY, #30 CAP 01/19/16 Carvedilol* (Carvedilol*) 6.25 Mg Tablet, 6.25 MG PO BID, #60 TAB 01/19/16 Amlodipine Besylate* (Amlodipine Besylate*) 10 Mg Tablet, 10 MG PO DAILY, #30 TAB 01/19/16 Atorvastatin* (Atorvastatin*) 80 Mg Tablet, 80 MG PO QHS, #30 TAB 12/20/15 Clopidogrel Bisulfate* (Clopidogrel Bisulfate*) 75 Mg Tablet, 75 MG PO DAILY, # 30 TAB 12/20/15 Follow-up Plan follow up with PCP 2 weeks Cardiology 2 weeks urology 2 weeks Pending Labs Laboratory Tests Test 06/15/16 06:48 Lab Scanned Report REFERENCE [id number] MAXIMILIANO MCGRAW MD Jun 15, 2016 15:53
--- NOTE | 2016-06-15 16:48 | CONS ---
Date/Time of Note Date/Time of Note DATE: 06/15/16 TIME: 16:47 Assessment/Plan Assessment/Plan Chief Complaint/Hosp Course SUBJECTIVE: No acute events. The patient is awake, lying comfortably in bed. He is afebrile. LABORATORY DATA: No labs this morning. PHYSICAL EXAMINATION: GENERAL: Fragile, elderly man who is in no distress. HEENT: Head atraumatic, normocephalic. NECK: Supple. CHEST: Rise symmetrical. Breath sounds clear. HEART: S1, S2. ABDOMEN: Soft, bowel sounds present. EXTREMITIES: Without cyanosis. ASSESSMENT: 1. Status post systemic inflammatory response syndrome. 2. Status post urinary tract infection. 3. Urinary retention, urology on case. 4. Chronic kidney disease. 5. Diabetes, blood sugars below 180. PLAN: Remains stable off antibiotics. Continue present care. Follow urology recommendations. Pending discharge planning. DW staff Problems: Consultation Date/Type/Reason Admit Date/Time Jun 06, 2016 at 11:40 Initial Consult Date Type of Consultation: id Exam/Review of Systems Vital Signs Vitals Vital Signs Date Time Temp Pulse Resp B/P Pulse Ox O2 Delivery O2 Flow Rate FiO2 06/15/16 14:00 Nasal Cannula 1.5 06/15/16 07:33 97.6 75 18 126/65 96 Intake and Output 06/14/16 06/14/16 06/15/16 15:00 23:00 07:00 Intake Total 3180 ml 360 ml Output Total 1300 ml 600 ml Balance 1880 ml -240 ml Results Result Diagram: 06/13/16 1516 06/13/16 1516 Results 24 hrs Laboratory Tests Test 06/15/16 06:48 Lab Scanned Report REFERENCE LAB Medications Medications Current Medications Ondansetron HCl (Zofran Inj) 4 mg Q6H PRN IV NAUSEA AND/OR VOMITING Last administered on 06/13/16 18:58; Admin Dose 4 MG; Start 06/06/16 at 13:30 Acetaminophen (Tylenol Tab) 650 mg Q6H PRN PO PAIN LEVEL 1-3 OR FEVER Last administered on 06/12/16 23:27; Admin Dose 650 MG; Start 06/06/16 at 13:30 Acetaminophen/ Hydrocodone Bitart ([place] (5/325)) 1 tab Q6H PRN PO MODERATE PAIN LEVEL 4-6; Start 06/06/16 at 13:30 Morphine Sulfate (morphine) 2 mg Q4H PRN IV SEVERE PAIN LEVEL 7-10; Start 06/06 at 13:30 Docusate Sodium (Colace) 100 mg Q12H PRN PO CONSTIPATION; Start 06/06/16 at 13: 30 Magnesium Hydroxide (Milk Of Mag) 30 ml DAILY PRN PO CONSTIPATION; Start at 13:30 Sodium Biphosphate/ Sodium Phosphate (Fleet Enema) 133 ml DAILY PRN [place] CONSTIPATION; Start 06/06/16 at 13:30 Lorazepam (Ativan) 0.5 mg Q6H PRN IV ANXIETY; Start 06/06/16 at 13:30 Hydralazine HCl (Apresoline) 10 mg Q6H PRN IV ELEVATED BLOOD PRESSURE; Start at 13:30 Clonidine (Catapres) 0.1 mg Q6H PRN PO ELEVATED BLOOD PRESSURE; Start 06/06/16 at 13:30 Nitroglycerin (Nitroglycerin (Sl Tab) 0.4 Mg) 1 tab Q5M PRN SL ANGINA; Start at 13:30 Atorvastatin Calcium (Lipitor) 80 mg QHS PO Last administered on 06/14/16 20: 39; Admin Dose 80 MG; Start 06/06/16 at 21:00 Clopidogrel Bisulfate (plaVIX) 75 mg DAILY PO Last administered on 06/15/16 09 :35; Admin Dose 75 MG; Start 06/07/16 at 09:00 Dutasteride (Avodart) 0.5 mg DAILY PO Last administered on 06/15/16 09:48; Admin Dose 0.5 MG; Start 06/07/16 at 09:00 Famotidine (Pepcid) 20 mg DAILY PO Last administered on 06/15/16 09:45; Admin Dose 20 MG; Start 06/07/16 at 09:00 Isosorbide Mononitrate (Imdur) 30 mg DAILY PO Last administered on 06/15/16 09 :35; Admin Dose 30 MG; Start 06/07/16 at 09:00 Salmeterol Xinafoate/ Fluticasone (Advair 250/50 Diskus) 1 inh BID INH Last administered on 06/15/16 09:33; Admin Dose 1 INH; Start 06/06/16 at 21:00 Carvedilol (Coreg) 6.25 mg BID PO Last administered on 06/15/16 09:35; Admin Dose 6.25 MG; Start 06/06/16 at 21:00 Apixaban (Eliquis) 2.5 mg BID PO Last administered on 06/15/16 09:37; Admin Dose 2.5 MG; Start 06/07/16 at 21:00 Tamsulosin HCl (Flomax) 0.4 mg HS PO Last administered on 06/14/16 20:39; Admin Dose 0.4 MG; Start 06/08/16 at 21:00 MOOSE COLON NP Jun 15, 2016 16:48
--- NOTE | 2016-06-15 17:36 | PN ---
DATE: 06/15/2016 SUBJECTIVE: Follow was discussed with ____. Discussed with the staff. The patient with no ulises st pain or pressure. No palpitation. Wants to leave and go home. MEDICATIONS: Reviewed. PHYSICAL EXAMINATION: VITAL SIGNS: Temperature 97.6, heart rate of 75, blood pressure 120/65, respiration rate of 18, sat urating 96%. HEENT: Normocephalic, atraumatic. Pupils are equal. CARDIOVASCULAR: Regular rate and rhythm. PULMONARY: With no wheezes anteriorly. GASTROINTESTINAL: Soft, nontender. EXTREMITIES: No significant lower extremity edema. NEUROLOGIC: Awake, responds appropriately. LABORATORY: He has refused today. ASSESSMENT AND PLAN: 1. Congestive heart failure, severe. 2. Severe left ventricular dysfunction. 3. History of coronary artery disease, status post myocardial infarction. 4. Non-ST elevation myocardial infarction. 5. Aortic stenosis. 6. Paroxysmal atrial fibrillation. 7. History of cerebrovascular accident. 8. Chronic obstructive pulmonary disease. 9. Renal insufficiency. RECOMMENDATIONS: We will continue with the current cardiac care. Discharge planning is in process. Dictated By: LUCÍA MARQUES/SANCHEZ Conf#: [id number] DID#: [id number] CC: Dr. Weaver; [place];*[facility]*
[2016-06-15 20:26] VITALS: BP 108/50; RESP 21
[2016-06-15] MEDS: ATORVASTATIN 80 MG TAB PO SCH (21:42)
[2016-06-15] MEDS: TAMSULOSIN (SR) 0.4 MG CAP PO SCH (21:42)
[2016-06-16] MEDS: FUROSEMIDE 40 MG TAB PO SCH ×2 (05:36→17:41)
[2016-06-16 07:59] VITALS: BP 102/54; RESP 20
[2016-06-16] MEDS: ISOSORBIDE MONONITRATE(SR)30 MG TAB PO SCH (09:18)
[2016-06-16] MEDS: CLOPIDOGREL 75 MG TAB PO SCH (09:18)
[2016-06-16] MEDS: FAMOTIDINE 20 MG TAB PO SCH (09:18)
[2016-06-16] MEDS: SALMETEROL/FLUTICASONE 250/50 INHA INH SCH ×2 (09:18→20:50)
[2016-06-16] MEDS: DUTASTERIDE 0.5 MG CAP PO SCH (09:19)
[2016-06-16] MEDS: APIXABAN 5 MG TABLET PO SCH ×2 (09:19→20:50)
--- NOTE | 2016-06-16 12:05 | PN ---
DATE: 06/16/2016 SUBJECTIVE: Urinary retention and urinary tract infection. OBJECTIVE: The patient did have a urinary infection and that was treated. Repeated urine culture a fter treatment was negative. PHYSICAL EXAMINATION: VITAL SIGNS: Today shows a temperature of 97.6, pulse is 74, respiration 20, blood pressure 102/54. ABDOMEN: Soft. GENITOURINARY: The bladder is not distended. He does void on the towels that are put for him. LABORATORY DATA: From 2 days ago and they are showing a creatinine of 1.8. BUN of 31. CBC with whi te blood cells of 10.7, hemoglobin 10.8, hematocrit 34.0. From a urological standpoint, the patient is voiding. He tended to keep a residual of between 100 to 200 sometimes and as long as urine is not infected that should be no problem. If the patient is tate ng discharged, that is okay from a urological standpoint. Dictated By: LIZZIE RAJAN/SANCHEZ Conf#: [id number] DID#: [id number]
--- NOTE | 2016-06-16 13:12 | PN ---
DATE: SUBJECTIVE: The patient is stable, no acute events overnight. No fevers, chills, nausea, vomiting. OBJECTIVE: VITAL SIGNS: Blood pressure is 102/54, respirations 20, pulse 74, temperature 97.6. HEENT: Head is normocephalic. NECK: Supple. HEART: Regular rate. LUNGS: Show diminished breath sounds at base. ABDOMEN: Soft, nontender to palpation without rebound or guarding. EXTREMITIES: Negative for clubbing, cyanosis, edema. DERMATOLOGIC: No rashes. MUSCULOSKELETAL: No joint effusions. NEUROLOGIC: No change in exam. MEDICATIONS: Have been reviewed. LABORATORY DATA: Has been reviewed. No new labs. ASSESSMENT AND PLAN: 1. Nonoliguric acute kidney injury on top of chronic kidney disease stage IIIB/IV. At baseline cre atinine of 1.5 mg/dL. Etiology of acute kidney injury is secondary to hemodynamics. Renal function has improved. Continue supportive care, renally dose all medications, avoid nephrotoxins. 2. Anemia of chronic disease. Continue to monitor H and H levels. 3. Mineral bone disorder. Continue to monitor calcium and phosphorus levels. 4. Chronic kidney disease, stage IIIB. Patient's current acute kidney injury as stated above. Cont inue treatment. Continue disease factor modification. 5. Acute systolic, diastolic heart failure, improved. Continue medical management. 6. Coronary artery disease, status post non-ST elevation myocardial infarction. Continue current t reatment plan. 7. History of chronic obstructive pulmonary disease, stable. Continue nebulizers. 8. Benign prostatic hypertrophy with urinary retention. The patient is improving. Follow up with neurology. 9. Urinary tract infection. The patient has completed antibiotic course. 10. Hypertension, controlled. 11. Diabetes. Continue Accu-Cheks, insulin sliding scale. Dictated By: JOÃO ROBISON/NTS Conf#: [id number] DID#: [id number]
--- NOTE | 2016-06-16 15:07 | PN ---
DATE: 06/16/2016 CARDIOLOGY FOLLOWUP SUBJECTIVE: Discussed with the staff. Rhythm strip was reviewed. The patient denies any chest juan francisco n, is still coughing. Denies PND, orthopnea to me. MEDICATIONS: Reviewed. PHYSICAL EXAMINATION: VITAL SIGNS: Temperature 97.6, heart rate of 74, blood pressure 102/54, respiration rate of 20, sat urating 98%. HEENT: Normocephalic, atraumatic. Thin, cachectic gentleman. Pupils are equal. CARDIOVASCULAR: Regular rate and rhythm, systolic ejection murmur. PULMONARY: With mild rhonchi. GASTROINTESTINAL: Soft, nontender. EXTREMITIES: No significant lower extremity edema. NEUROLOGIC: Awake and alert. PSYCHIATRIC: Calm. LABORATORY: He has refused. ASSESSMENT AND PLAN: 1. Congestive heart failure. 2. Severe left ventricular dysfunction. 3. Coronary artery disease. 4. Non-ST elevation myocardial infarction. 5. Aortic stenosis. 6. Paroxysmal atrial fibrillation. 7. History of cerebrovascular accident. 8. History of chronic obstructive pulmonary disease. 9. Renal failure. 10. Hypertension. 11. Dyslipidemia. RECOMMENDATIONS: We will continue with the current cardiac care. Continue with the Eliquis and Renu vix. Statin will be continued. Coreg will be continued. The patient is not on JOSE MARIA due to his hebert l failure and hyperkalemia. Consider acute rehabilitation transfer. Dictated By: LUCÍA CUNHA MD AV/SANCHEZ Conf#: [id number] DID#: [id number] CC: MAXIMILIANO MCGRAW MD;*End[facility]*
--- NOTE | 2016-06-16 16:53 | DS ---
Date/Time of Note Date/Time of Note DATE: 06/16/16 TIME: 16:52 Discharge Summary Admission/Discharge Info Admit Date/Time Jun 06, 2016 at 11:40 Discharge Date/Time Final Diagnosis 1. Urinary retention and urinary tract infection with ACINETOBACTER BAUMANNII and ENTEROCOCCUS SPECIES, treated, negative culture on repeated cuture on 2016. no further antibiotics treatment 2. Pneumonia, treated, stable 3. Congestive heart failure exacerbation. systolic, acute on chronic, improved 4. [place]ldqk-xe[place] renal insufficiency, follow up with BMP 5. Hyperkalemia. Renal failure related, resolved. 6. Atrial fibrillation. continue Eliquis. 7. Coronary artery disease. on aspirin and Plavix. 8. Pulmonary hypertension. 9. History of aortic stenosis 10. Prostate enlargement with urinary retention, follow up with urology. on Flomax and avodart 11. History of prior stroke. on aspirin and Plavix Patient Condition: Stable Hx of Present Illness A 75-year-old male with past medical history based on records of acute respiratory failure in the past, CHF, systolic and diastolic dysfunction, chronic kidney disease, prior V-tach, pulmonary hypertension, COPD, mild to moderate aortic stenosis, essential hypertension, iron deficiency anemia, BPH, dysphasia and deconditioning, noncompliance with medication from the past, AFib , prior stroke, coronary artery disease and low platelets. He was brought in today by paramedics because of some complaints of palpitations, most of the information obtained from the ER documentation. The patient is presently lethargic and unable to provide a full HPI or review of systems. Apparently he was also having some shortness of breath and the family became concerned and decided to call EMS. When he came in today, he was found with elevated troponin of 1.9 and his potassium was also elevated at 6.2. He was given a DuoNeb treatment and Lasix treatment in the ER and also aspirin as well. The patient was last here at our hospital from 04/04/2016 to 04/15/2016 for respiratory failure and CHF exacerbation at that time. He also spent about 12 days in rehabilitation from 04/15/2016 to 04/27/2016 for recovery. CXR on admission indicated pulmonary congestion. Patient was treated with more diuretcs for CHF exacerbation, he was also on antibiotics for pneumonia. Shortness of breath and cough gradually improved. Patient had urinary retention , that was improved with putting him back on flomax and adovart. He was seen by Dr. Vaughn for cardiology and Dr. Quiñones for urology. He came in with BUN/Cr 67/1.92 that improves to 31/1.18 on 06/15/2016. H had Urinary retention and urinary tract infection with ACINETOBACTER BAUMANNII and ENTEROCOCCUS SPECIES, treated, negative culture on repeated cuture on 06/10/2016. no further antibiotics treatment Hospital Course SUBJECTIVE: No acute events. The patient is awake, lying comfortably in bed. He is afebrile. LABORATORY DATA: No labs this morning. PHYSICAL EXAMINATION: GENERAL: Fragile, elderly man who is in no distress. HEENT: Head atraumatic, normocephalic. NECK: Supple. CHEST: Rise symmetrical. Breath sounds clear. HEART: S1, S2. ABDOMEN: Soft, bowel sounds present. EXTREMITIES: Without cyanosis. ASSESSMENT: 1. Status post systemic inflammatory response syndrome. 2. Status post urinary tract infection. 3. Urinary retention, urology on case. 4. Chronic kidney disease. 5. Diabetes, blood sugars below 180. PLAN: Remains stable off antibiotics. Continue present care. Follow urology recommendations. Pending discharge planning. staff Home Meds Active Scripts Tamsulosin Hcl* (Flomax*) 0.4 Mg Cap.er.24h, 0.4 MG PO HS for 30 Days, CAP Prov:ELIJAH BALDWIN 12/25/15 Reported Medications Apixaban* (Eliquis*) 2.5 Mg Tablet, 2.5 MG PO BID, TAB 06/06/16 Salmeterol Xinaf/Fluticasone* (Advair*) 250-50 Diskus Inhaler, 1 INH INHALATION BID, #1 INHALER 06/06/16 Lidocaine (Lidoderm) 1 Each Adh..patch, 1 EACH TP DAILY 06/06/16 Metoprolol Succinate* (Toprol XL*) 50 Mg Tab.er.24h, 50 MG PO BID, #30 TAB 06/06/16 Isosorbide Mononitrate* (Isosorbide Mononitrate*) 30 Mg Tab.er.24h, 30 MG PO DAILY, TAB 06/06/16 Furosemide* (Lasix*) 20 Mg Tablet, 20 MG PO DAILY, TAB 06/06/16 Budesonide-Formoterol Fumarate* (Symbicort*) 160-4.5 Hfa.aer.ad, 2 PUFF INHALATION BID, #1 EACH 04/04/16 Famotidine* (Famotidine*) 20 Mg Tablet, 20 MG PO DAILY, #30 TAB 04/04/16 Nitroglycerin* (Nitrostat*) 0.4 Mg Tab.subl, 0.4 MG SL Q5MIN Y for CHEST PAIN, BOTTLE 01/20/16 Dutasteride* (Avodart*) 0.5 Mg Capsule, 0.5 MG PO DAILY, CAP 01/20/16 Tiotropium [place]* (Spiriva*) 18 Mcg Cap.w.dev, 1 CAP INHALATION DAILY, #30 CAP 01/19/16 Carvedilol* (Carvedilol*) 6.25 Mg Tablet, 6.25 MG PO BID, #60 TAB 01/19/16 Amlodipine Besylate* (Amlodipine Besylate*) 10 Mg Tablet, 10 MG PO DAILY, #30 TAB 01/19/16 Atorvastatin* (Atorvastatin*) 80 Mg Tablet, 80 MG PO QHS, #30 TAB 12/20/15 Clopidogrel Bisulfate* (Clopidogrel Bisulfate*) 75 Mg Tablet, 75 MG PO DAILY, # 30 TAB 12/20/15 Follow-up Plan follow up with PCP 2 weeks Cardiology 2 weeks urology 2 weeks MAXIMILIANO MCGRAW MD Jun 16, 2016 16:53
[2016-06-16 17:46] VITALS: BP 123/63; PULSE 74
[2016-06-16] MEDS: TAMSULOSIN (SR) 0.4 MG CAP PO SCH (20:50)
[2016-06-16] MEDS: ATORVASTATIN 80 MG TAB PO SCH (20:50)
[2016-06-16 20:51] VITALS: BP 119/61; RESP 18
== END 2016-06-16 21:49 | disposition home or self-care (01) | DRG 280 ==
LOC: E/R 10:05 → MS4 11:40 → PP2 06-09 19:50
PROVIDERS: ADMIT Hospitalist; ATTEND Hospitalist
DX: I13.0 Hypertensive heart and chronic kidney disease with heart failure and stage 1 through stage 4 chronic kidney disease, or unspecified chronic kidney disease (principal); J18.9 Pneumonia, unspecified organism; I21.4 Non-ST elevation (NSTEMI) myocardial infarction; N17.0 Acute kidney failure with tubular necrosis; J96.91 Respiratory failure, unspecified with hypoxia; N18.4 Chronic kidney disease, stage 4 (severe); I27.2 Other secondary pulmonary hypertension; I69.954 Hemiplegia and hemiparesis following unspecified cerebrovascular disease affecting left non-dominant side; N39.0 Urinary tract infection, site not specified; I50.23 Acute on chronic systolic (congestive) heart failure; E87.5 Hyperkalemia; I48.91 Unspecified atrial fibrillation; Z86.73 Personal history of transient ischemic attack (TIA), and cerebral infarction without residual deficits; D63.8 Anemia in other chronic diseases classified elsewhere; R33.9 Retention of urine, unspecified; Z72.0 Tobacco use; Z95.5 Presence of coronary angioplasty implant and graft; B96.89 Other specified bacterial agents as the cause of diseases classified elsewhere; B95.2 Enterococcus as the cause of diseases classified elsewhere
CPT/HCPCS: 36415; 71010; 80048; 80053; 80061; 80162; 81001; 81003; 82550; 82553; 83036; 83690; 83735; 83880; 84100; 84155; 84300; 84439; 84443; 84484; 84560; 85025; 85610; 85730; 87086; 92610; 93005; 93306; 94664; 96374; 96375; 97161; A4310; J1815; J1940; J2060; J2405; J2543